=== PATIENT | female | born 1970 | race Caucasian/White ===

== ENCOUNTER 2020-01-08 17:57 | Emergency (ER) | payer SELFPAY ==
[2020-01-08 18:28] VITALS: BP 137/86; PULSE 103; RESP 18; TEMP 36.8; O2SAT 97; BMI 30.9
== END 2020-01-08 19:15 | disposition left against medical advice (07) ==
LOC: ER 18:20
PROVIDERS: Emergency Provider Emergency Medicine
DX: Z53.21 Procedure and treatment not carried out due to patient leaving prior to being seen by health care provider (principal)
CPT/HCPCS: 99281

== ENCOUNTER 2020-11-19 15:48 | Observation (INO) | payer MEDICAID, SELFPAY ==
[2020-11-19 16:46] VITALS: BP 119/83; PULSE 114; RESP 18; TEMP 36.7; O2SAT 99; BMI 27.4
--- NOTE | 2020-11-19 18:20 | XRR_ITS ---
PROCEDURE INFORMATION: Exam: XR Chest Exam date and time: 11/19/2020 6:27 PM Age: 50 years old Clinical indication: Dyspnea; Additional info: SOB TECHNIQUE: Imaging protocol: XR of the chest. Views: 1 view. COMPARISON: CR Chest 1 [place] [id number] 10/01/2014 10:49 AM FINDINGS: Lungs: Decreased lung volumes. Left lung base opacities are nonspecific. Pleural spaces: Possible small effusion. No pneumothorax. Heart/Mediastinum: Left cardiac apex obscured. Cardiac silhouette diameter is unremarkable. Diaphragm: Left diaphragm partially obscured. Bones/joints: Unremarkable. XR/XR chest 1V portable [id number] IMPRESSION: Asymmetric opacification of left lung base obscuring left diaphragm and left cardiac apex. This may possibly represent an underlying pleural effusion. Cannot exclude pneumonia.
--- NOTE | 2020-11-19 18:20 | ECG_ITS ---
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 Measurements Intervals Thida Rate: 111 P: 43 WY: 138 QRS: 43 QRSD: 92 T: 97 QT: 329 QTc: 448 Interpretive Statements SINUS TACHYCARDIA WITH OCCASIONAL VENTRICULAR PREMATURE COMPLEXES POSSIBLE LEFT ATRIAL ENLARGEMENT [-0.1mV P WAVE IN V1/V2] PROBABLE INFERIOR MYOCARDIAL INFARCTION [35 ms Q WAVE IN II/aVF], PROBABLY OLD ANTEROSEPTAL MYOCARDIAL INFARCTION [40+ ms Q WAVE IN V1-V4], OF INDETERMINATE AGE No previous ECG available for comparison Electronically Signed On 11-19-2020 20:28:20 CDT by Luis Gilmore M.D. [email or web address]
[2020-11-19 18:32] LABS: Basophils # 0.1 10^3/uL (0.0-0.1); Basophils % 0.7 %; Eosinophils # 0.1 10^3/uL (0.0-0.8); Eosinophils % 1.7 %; Hematocrit 39.9 % (37.0-47.0); Hemoglobin 13.3 g/dL (11.5-15.3); Lymphocytes # 2.3 10^3/uL (0.8-4.8); Lymphocytes % 31.6 %; Mean Corpuscular HGB Conc 33.3 g/dL (30.0-36.0); Mean Corpuscular Hemoglobin 30.2 pg (28.0-34.0); Mean Corpuscular Volume 90.5 fL (81-99); Mean Platelet Volume 10.8 fL (7.4-10.4); Monocytes # 0.6 10^3/uL (0.2-0.9); Monocytes % 8.4 %; Neutrophils # 4.15 10^3/uL (1.8-7.7); Neutrophils % 57.2 %; Nucleated Red Blood Cells % 0 %; Platelet Count 270 10^3/cmm (130-400); Red Blood Count 4.41 10^6/uL (4.1-5.3); Red Cell Distribution Width 13.8 % (12.1-15.1); White Blood Count 7.3 10^3/uL (4.0-10.0)
--- NOTE | 2020-11-19 18:58 | W.ED.GENADLT ---
HPI - General Adult General: Chief complaint: General Medical Stated complaint: multiple complaints Time Seen by Provider: 11/19/20 18:30 Source: patient and EMS Mode of arrival: EMS Limitations: no limitations History of Present Illness: HPI narrative: 50-year-old female who is here with multiple complaints. She states that her blood sugar she believes has been running high she is also had some extremity swelling and some shortness of breath and chest pain that has been going on for months almost a year. She states she had increased swelling her lower extremities and now is having some shortness of breath when she lays flat. She states that she just got Medicaid and has not seen any providers. She does have a history of diabetes but states that she does not take any medicines because she has not seen any providers in over a year. She states last time she did check her blood sugar she thought it was 500 but has not checked it in quite some time. She denies any acute problems at this time. Denies any worsening improving factors. Associated symptoms: Reports chest pain and dyspnea; Deny headache(s), nausea, rash or vomiting Review of Systems Const: Denies: fever(s), chills, body aches or change in appetite Eyes: Denies: blurry vision or eye discomfort ENMT: Denies: throat pain or dental pain Card: Reports: chest pain Resp: Reports: dyspnea GI: Denies: abdominal pain, nausea, vomiting or diarrhea : Denies: dysuria Musc: Reports: extremity swelling; Denies: neck pain or back pain Skin/Breast: Denies: rash Neuro: Denies: headache(s) Psych: Denies: depression Dawson/Lymph: Denies: easy bruising All/Imm: Denies: urticaria PFSH ED PFSH: Medical History (Updated 11/19/20 @ 19:52 by Vance Adams MD) Depression Diabetes Marijuana abuse OCD (obsessive compulsive disorder) PTSD (post-traumatic stress disorder) Seizure Suicide and self-inflicted injury Surgical History (Updated 11/19/20 @ 19:52 by Vance Adams MD) H/O: hysterectomy Social History (Updated 11/19/20 @ 19:53 by Vance Adams MD) Lives independently: Yes Housing: House Physical Exam Const: COMMON NORMALS: no acute distress, patient oriented x3 and healthy appearing HENMT: COMMON NORMALS: normocephalic and atraumatic HEAD & SCALP: normocephalic and atraumatic Eye: COMMON NORMALS: Equal, round and reactive pupils present and EOMs intact bilaterally PUPIL: Yes Equal, round and reactive pupils present Neck/C-Spine: COMMON NORMALS: full ROM and supple Chest: COMMONS NORMALS: normal inspection of the chest and normal palpation of entire chest wall Resp: COMMON NORMALS: normal respiratory effort, No retractions, No use of accessory muscles and clear to auscultation bilaterally AUSCULTATION: clear to auscultation bilaterally Cardio: COMMON NORMALS: regular rate, regular rhythm and No murmurs present (Cardio) RATE: regular rate RHYTHM: regular rhythm GI: COMMON NORMALS: Normal to inspection, nondistended, normoactive bowel sounds present, Soft to palpation, non-tender and no masses PALPATION: Yes Soft to palpation Extremity: COMMON NORMALS: full ROM NARRATIVE EXTREMITY EXAM: 1+ edema Neuro: COMMON NORMALS: patient oriented x3, moves all extremities and no focal motor deficits Psych: COMMON NORMALS: mental status grossly normal, Normal thought process present and cooperative THOUGHT PROCESS: Normal thought process present Skin: COMMON NORMALS: no rashes or lesions noted and no wounds GENERAL SKIN EXAM: no rashes or lesions noted Course Vital Signs: Vital signs: Vital Signs Temperature 98.1 F 11/19/20 16:46 Pulse Rate 114 H 11/19/20 16:46 Respiratory Rate 18 11/19/20 16:46 Blood Pressure 119/83 11/19/20 16:46 Pulse Oximetry 99 11/19/20 16:46 MDM - General Adult MDM Narrative: Medical decision making narrative: Patient presents here with lower extremity edema elevated BNP and dyspnea with concern of new onset CHF. Patient's also hyperglycemic. She has not taken any meds. Will admit to hospitatlists Lab Data: Labs: Lab Results 11/19/20 11/19/20 Range/Units 15:38 15:38 WBC 7.3 (4.0-10.0) 10^3/ uL RBC 4.41 (4.1-5.3) 10^6/u L Hgb 13.3 (11.5-15.3) g/dL Hct 39.9 (37.0-47.0) % MCV 90.5 (81-99) fL MCH 30.2 (28.0-34.0) pg MCHC 33.3 (30.0-36.0) g/dL RDW 13.8 (12.1-15.1) % Plt Count 270 (130-400) 10^3/c mm MPV 10.8 H (7.4-10.4) fL Neut % (Auto) 57.2 % Lymph % (Auto) 31.6 % [place] % (Auto) 8.4 % Eos % (Auto) 1.7 % Baso % (Auto) 0.7 % Neut # (Auto) 4.15 (1.8-7.7) 10^3/u L Lymph # (Auto) 2.3 (0.8-4.8) 10^3/u L Highlands # (Auto) 0.6 (0.2-0.9) 10^3/u L Eos # (Auto) 0.1 (0.0-0.8) 10^3/u L Baso # (Auto) 0.1 (0.0-0.1) 10^3/u L Nucleated RBC % (a uto) 0 % Nucleated RBCs # 0.0 /100WBC Sodium 131 L (136-145) mmol/L Potassium 4.0 (3.5-5.1) mmol/L Chloride 96 L (98-107) mmol/L Carbon Dioxide 22 (22-29) mmol/L Anion Gap 17.0 (5-19) BUN 12 (6-20) mg/dL Creatinine 0.6 (0.5-0.9) mg/dL GFR Calculation 105.4 (90-130) mL/min Glucose 519 H* (65-115) mg/dL Calculated Osmolal ity 295 (285-295) mOsm/k g Calcium 8.9 (8.5-10.5) mg/dL Total Bilirubin 0.4 (0.15-1.2) mg/dL AST 25 (0-32) U/L ALT 56 H (0-33) U/L Alkaline Phosphata se 126 H (35-105) IU/L NT-Pro-B Natriuret Pep 6104 H (0-125) pg/mL Total Protein 6.5 L (6.6-8.7) g/dL Albumin 3.6 (3.5-5.2) g/dL Globulin 2.9 (1.3-4.6) g/dL Imaging Data^: CXR: Attestation: I personally reviewed and interpreted this imaging study as follows: Radiologist's impression: [facility] [address] XRay Report Signed Patient: Bertha Tejada Unit #: [id number] : 1970 Age/Sex: 50 / F ADM Date: 11/19/20 Loc: ER Room/Bed: Attending Dr: Ordering Provider/Ordering MD: Brant Jaramillo MD Date of Service: 11/19/20 Procedure(s): XR chest 1V portable [id number] Accession Number(s): [id number] Report Number: [id number] PROCEDURE INFORMATION: Exam: XR Chest Exam date and time: 11/19/2020 6:27 PM Age: 50 years old Clinical indication: Dyspnea; Additional info: SOB TECHNIQUE: Imaging protocol: XR of the chest. Views: 1 view. COMPARISON: CR Chest 1 [place] [id number] 10/01/2014 10:49 AM FINDINGS: Lungs: Decreased lung volumes. Left lung base opacities are nonspecific. Pleural spaces: Possible small effusion. No pneumothorax. Heart/Mediastinum: Left cardiac apex obscured. Cardiac silhouette diameter is unremarkable. Diaphragm: Left diaphragm partially obscured. Bones/joints: Unremarkable. XR/XR chest 1V portable [id number] IMPRESSION: Asymmetric opacification of left lung base obscuring left diaphragm and left cardiac apex. This may possibly represent an underlying pleural effusion. Cannot exclude pneumonia. EKG Data^: EKG 1: Attestation: I personally reviewed and interpreted this EKG as follows: EKG interpretation date: 11/19/20 EKG interpretation time: 19:21 Interpretation: sinus tach hr [address] or t wave abnormalities qrs 92 qtc 394 Computer generated interpretation: Chest X-Ray 11/19/20 18:20 IMPRESSION: Asymmetric opacification of left lung base obscuring left diaphragm and left cardiac apex. This may possibly represent an underlying pleural effusion. Cannot exclude pneumonia. Discharge Plan Discharge Prescriptions: No Action Tylenol 325 mg Tablet 325 - 650 mg PO QID PRN (Reason: Pain) RF: 0 ibuprofen 200 mg Tablet 200 - 400 mg PO Q6H PRN (Reason: FEVER/PAIN) RF: 0 Adrian Otc See Rx Instructions .ROUTE .COMPLEX RF: 0 Generic Sudafed See Rx Instructions .ROUTE .COMPLEX RF: 0 Tussin See Rx Instructions .ROUTE .COMPLEX RF: 0 Coding Level of Care Code ED Agronomy Instructor for Ruth Fwd Exam Comprehensive
[2020-11-19 19:07] LABS: Alanine Aminotransferase 56 U/L (0-33); Albumin Level 3.6 g/dL (3.5-5.2); Alkaline Phosphatase 126 IU/L (35-105); Aspartate Amino Transferase 25 U/L (0-32); Blood Urea Nitrogen 12 mg/dL (6-20); Calcium 8.9 mg/dL (8.5-10.5); Carbon Dioxide 22 mmol/L (22-29); Chloride 96 mmol/L (98-107); Creatinine Clr Calc Pharmacy 104.3038; Globulin 2.9 g/dL (1.3-4.6); Glomerular Filtration Rate 105.4 mL/min (90-130); NT Pro B Type Natriuretic Pept 6104 pg/mL (0-125); Osmolality Calculated 295 mOsm/kg (285-295); Sodium 131 mmol/L (136-145); Total Bilirubin 0.4 mg/dL (0.15-1.2); Total Protein 6.5 g/dL (6.6-8.7)
[2020-11-19 19:23] LABS: Glucose 519 mg/dL (65-115)
[2020-11-19] MEDS: insulin regular-human 100 units/1 mL 10 UNIT IVP (19:42)
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
[2020-11-19] MEDS: FUROsemide 10 mg/mL SDV 4mL 40 MG IVP (19:44)
[2020-11-19 21:13] LABS: Glucose Point of Care 232 mg/dL (70-110)
[2020-11-19 21:31] VITALS: BP 116/87; PULSE 86; RESP 18; TEMP 36.6; O2SAT 99
[2020-11-19 22:11] VITALS: BP 127/54; PULSE 103; RESP 23; TEMP 36.6; O2SAT 97
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
[2020-11-19 22:56] LABS: Chol HDL Ratio 3.56 mg/dL (0.0-4.40); Cholesterol 139 mg/dL (0-200); HDL Cholesterol 39 mg/dL (60-100); LDL Cholesterol Calculated 59 mg/dL (50-129); LDL HDL Ratio 1.51 RATIO (0.00-3.22); Thyroid Stimulating Hormone 1.56 uIU/mL (0.27-4.20); Triglycerides 204 mg/dL (0-150)
[2020-11-19 22:57] LABS: Estmated Average Glucose 220; Hemoglobin A1C 9.3 % (4.0-6.0)
[2020-11-20] VITALS: BP 115/81; PULSE 113; RESP 21; TEMP 36.7; O2SAT 95
[2020-11-20] MEDS: enoxaparin 40 mg/0.4 mL Syringe SUBCUT (00:05)
[2020-11-20] MEDS: LORazepam 0.5 mg Tablet 0.25 MG PO (00:05)
[2020-11-20 02:00] VITALS: BP 119/90; PULSE 117; RESP 20; TEMP 36.8; O2SAT 93
[2020-11-20 06:00] VITALS: BP 122/87; PULSE 109; RESP 20; TEMP 36.8; O2SAT 95
--- NOTE | 2020-11-20 06:28 | PC.NURSE ---
SHIFT SUMMARY Slept about an hour and half after taking the po Ativan. Says has been days since she has slept. Has some anxiety. Sits on side of bed and gets up and walks around in her room. Has had good urine output since admission.
[2020-11-20 06:39] LABS: Glucose Point of Care 343 mg/dL (70-110)
[2020-11-20 06:54] LABS: Basophils # 0.1 10^3/uL (0.0-0.1); Basophils % 0.7 %; Eosinophils # 0.2 10^3/uL (0.0-0.8); Eosinophils % 2.5 %; Hematocrit 43.4 % (37.0-47.0); Hemoglobin 13.9 g/dL (11.5-15.3); Lymphocytes # 2.4 10^3/uL (0.8-4.8); Lymphocytes % 31.8 %; Mean Corpuscular Hemoglobin 29.7 pg (28.0-34.0); Mean Corpuscular Volume 92.7 fL (81-99); Mean Platelet Volume 10.4 fL (7.4-10.4); Monocytes # 0.6 10^3/uL (0.2-0.9); Monocytes % 8.4 %; Neutrophils # 4.31 10^3/uL (1.8-7.7); Neutrophils % 56.2 %; Nucleated Red Blood Cells % 0 %; Platelet Count 283 10^3/cmm (130-400); Red Blood Count 4.68 10^6/uL (4.1-5.3); Red Cell Distribution Width 13.8 % (12.1-15.1); White Blood Count 7.7 10^3/uL (4.0-10.0)
[2020-11-20 07:04] LABS: Anion Gap 16.1 (5-19); Blood Urea Nitrogen 13 mg/dL (6-20); Calcium 8.9 mg/dL (8.5-10.5); Carbon Dioxide 23 mmol/L (22-29); Chloride 99 mmol/L (98-107); Glomerular Filtration Rate 168.3 mL/min (90-130); Glucose 348 mg/dL (65-115); Osmolality Calculated 292 mOsm/kg (285-295); Potassium 4.1 mmol/L (3.5-5.1); Sodium 134 mmol/L (136-145)
[2020-11-20] MEDS: FUROsemide 20 mg Tablet PO (09:17)
[2020-11-20] MEDS: bacitracin ointment 28 gm TOPICAL ×2 (09:18→14:03)
--- NOTE | 2020-11-20 10:48 | PC.NUTR ---
Nutrition consult received for new onset DM education. Provided nutrition education for DM and CHF nutrition therapies. Downgraded diet texture to Mechnical soft per pt request. See RD assessment for further details.
[2020-11-20 11:12] LABS: Glucose Point of Care 308 mg/dL (70-110)
[2020-11-20 11:20] VITALS: BP 115/58; PULSE 114; RESP 18; TEMP 36.1; O2SAT 97
[2020-11-20 15:00] VITALS: BP 111/63; PULSE 112; RESP 18; TEMP 36.8; O2SAT 97
--- NOTE | 2020-11-20 15:18 | PC.RESP ---
Smoking Cessation information sent to patient.
[2020-11-20 17:14] LABS: Glucose Point of Care 160 mg/dL (70-110)
[2020-11-20 17:42] VITALS: BP 111/63; PULSE 112; RESP 18; TEMP 36.8; O2SAT 97
--- NOTE | 2020-11-20 22:24 | USCV_ITS ---
Bertha Tejada Age: 50 Gender: F : 1970 Exam Date: 11/20/2020 06:36 Ordering Phys: Vance Adams MD Technologist: CASSANDRA [place] [facility] [place] CHF EXACERBATION BP: 119 / 90 HR: 115 Rhythm: Sinus Technical Quality: Adequate MEASUREMENTS (Male / Female) Normal Values 2D ECHO LV Diastolic Diameter PLAX 5.3 cm 4.2 - 5.9 / 3.9 - 5.3 cm LV Systolic Diameter PLAX 4.8 cm LV Chamber Size 2.7 cm IVS Diastolic Thickness 1.1 cm 0.6 - 1.0 / 0.6 - 0.9 cm IVS Systolic Thickness 1.2 cm LVPW Diastolic Thickness 1.7 cm 0.6 - 1.0 / 0.6 - 0.9 cm LVPW Systolic Thickness 1.5 cm RV Chamber Size 2.8 cm LVOT Diameter 2.0 cm LV Ejection Fraction 2D Teich 21.9 % LV Ejection Fraction MOD 2C 11.0 % LV Ejection Fraction 2C AL 11.3 % LA Diameter 4.3 cm LA Width 3.2 cm LA Height 5.2 cm RA Width 3.4 cm RA Height 4.0 cm Aorta at Sinotubular Diameter 2.4 cm M-MODE LV Diastolic Diameter MM 6.7 cm 4.2 - 5.9 / 3.9 - 5.3 cm LV Systolic Diameter MM 5.9 cm LV Ejection Fraction MM Teich 25.0 % IVS Diastolic Thickness MM 1.0 cm 0.6 - 1.0 / 0.6 - 0.9 cm IVS Systolic Thickness MM 1.0 cm LVPW Diastolic Thickness MM 1.0 cm 0.6 - 1.0 / 0.6 - 0.9 cm LVPW Systolic Thickness MM 1.2 cm Aortic Annulus Diameter 2.6 cm LA Ao Ratio MM 1.8 MV E Point Septal Separation 1.7 cm DOPPLER MV Area PHT 4.8 cm squared Mitral E to A Ratio 3.2 MV E' Velocity 44.0 cm/s Mitral E to MV E' Ratio 9.0 Mitral E to LV E' Lateral Ratio 9.8 Mitral E to LV E' Septal Ratio 8.4 TR Peak Velocity 273.6 cm/s TR Peak Gradient 30.0 mmHg TR Mean Velocity 213.3 cm/s TR Mean Gradient 21.5 mmHg TR Velocity Time Integral 99.5 cm TV Peak E Velocity 78.0 cm/s Right Atrial Pressure 3.0 mmHg Pulmonary Artery Systolic Pressu 33.0 mmHg PV Peak Velocity 78.0 cm/s RV Acceleration Time 0.1 s RV Ejection Time 0.2 s RV AcT/ET 0.2 FINDINGS Left Ventricle Mildly dilated left ventricle. Severe diffuse hypokinesia of the left ventricle with ejection fraction of around 20% Right Ventricle The right ventricle is normal in size and function. Right Atrium Normal right atrial size. Left Atrium Mildly increased left atrial size. Mitral Valve Moderate mitral valve regurgitation. Aortic Valve No gross abnormalities noted Tricuspid Valve Mild tricuspid valve regurgitation. Pulmonic Valve Pulmonic valve not well visualized. Pericardium Trivial pericardial effusion. Aorta Normal ascending aorta dimension. CONCLUSIONS Mildly dilated left ventricle. Severe diffuse hypokinesia of the left ventricle with ejection fraction of around 20%. Mildly increased left atrial size. Moderate mitral valve regurgitation. Mild tricuspid valve regurgitation. Trivial pericardial effusion. Estimated pulmonary artery peak systolic pressure of 33 mmHg. No similar previous study is available for comparison. Dr Tj Dumas MD FAC (Electronically Signed) Final Date: 23 November 2020 09:55 S
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
== END 2020-11-20 17:45 | disposition home or self-care (01) ==
LOC: ER 19:59 → MEDSURG 21:50
PROVIDERS: Admitting Provider Internal Medicine; Emergency Provider Emergency Medicine; Visit Provider Student in an Organized Health Care Education/Training Program
DX: E11.65 Type 2 diabetes mellitus with hyperglycemia (principal); I50.9 Heart failure, unspecified; G47.30 Sleep apnea, unspecified; J44.9 Chronic obstructive pulmonary disease, unspecified; F41.9 Anxiety disorder, unspecified; Z82.49 Family history of ischemic heart disease and other diseases of the circulatory system; Z83.3 Family history of diabetes mellitus; F17.210 Nicotine dependence, cigarettes, uncomplicated; F32.9 Major depressive disorder, single episode, unspecified; F12.10 Cannabis abuse, uncomplicated; Z91.5 Personal history of self-harm
CPT/HCPCS: 36415; 36416; 71045; 80048; 80053; 80061; 82962; 83036; 83880; 84443; 85025; 93005; 93306; 96372; 96374; 96375; 99285; G0378; J1650; J1815; J1940

== ENCOUNTER 2021-01-19 20:06 | Inpatient (IN) | payer MEDICAID, SELFPAY ==
[2021-01-19 21:12] VITALS: BP 87/61; PULSE 112; RESP 18; TEMP 37.2; O2SAT 96; BMI 26.1
[2021-01-19 22:19] LABS: Basophils % 0.4 %; Eosinophils % 0.2 %; Hemoglobin 14.2 g/dL (11.5-15.3); Lymphocytes # 1.3 10^3/uL (0.8-4.8); Lymphocytes % 13.9 %; Mean Corpuscular HGB Conc 31.6 g/dL (30.0-36.0); Mean Corpuscular Hemoglobin 26.4 pg (28.0-34.0); Mean Corpuscular Volume 83.8 fL (81-99); Mean Platelet Volume 9.8 fL (7.4-10.4); Monocytes # 0.4 10^3/uL (0.2-0.9); Monocytes % 3.8 %; Neutrophils # 7.69 10^3/uL (1.8-7.7); Nucleated Red Blood Cells % 0.3 %; Platelet Count 177 10^3/cmm (130-400); Red Blood Count 5.37 10^6/uL (4.1-5.3); Red Cell Distribution Width 19.4 % (12.1-15.1); White Blood Count 9.5 10^3/uL (4.0-10.0)
--- NOTE | 2021-01-19 22:23 | ED_ITS ---
HPI - Extremity Problem General: Chief complaint: Extremity Problem,Nontraumatic Stated complaint: foot issues Time Seen by Provider: 01/19/21 21:49 Source: patient Mode of arrival: wheelchair Limitations: no limitations History of Present Illness: HPI Narrative: Patient is a 50-year-old female who presents to ED today along with her for complaints of bilateral lower ex tremity and foot wounds. History is very difficult to obtain from patient as she seems to be under the influence of drugs. She seems to be very paranoid. Her history often changes in regards to the wounds. She tells me at one point she was bitten by baby pit vipers and then later tells me that the wounds were caused by standing and stagnant rodriguez water. She then states they were caused by leeches. She does have pictures on her phone dated mid December where her feet do not appear infected but have large clear fluid-filled bulla on them. These have since ruptured and she now has multiple ulcerated necrotic appearing lesions to her feet and legs. 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 Patient was diagnosed with new onset CHF in November. She was hospitalized for this. She was also diagnosed with diabetes. Patient refuses to believe she is a diabetic. She has not been taking any of her medication she was discharged home with. Complaint: extremity pain and extremity swelling Associated symptoms: Deny fever(s) Review of Systems Const: Denies: fever(s) or chills GI: Denies: nausea or vomiting : Reports: other (states she only urinates once a day); Denies: flank pain or dysuria Musc: Reports: extremity pain and extremity swelling Skin/Breast: Reports: erythema, skin pain and new lesions Neuro: Denies: numbness in extremities, weakness in extremities or sensory changes [facility] ED PFSH: Medical History Depression Diabetes Marijuana abuse OCD (obsessive compulsive disorder) PTSD (post-traumatic stress disorder) Seizure Suicide and self-inflicted injury Surgical History H/O: hysterectomy Family History Other CAD (coronary artery disease) Diabetes Social History Smoking and tobacco status: former smoker Alcohol intake: never Lives independently: Yes Housing: House Physical Exam Const: EXAM LIMITATIONS: altered mental status (pt appears to be under the influence of drugs) GENERAL APPEARANCE: cooperative NUTRITIONAL APPEARANCE: overweight ORIENTATION/CONSCIOUSNESS: Yes awake, Yes oriented to person and Yes oriented to place HENMT: COMMON NORMALS: normocephalic and atraumatic HEAD & SCALP: normocephalic and atraumatic Resp: COMMON NORMALS: normal respiratory effort Cardio: COMMON NORMALS: regular rhythm RATE: tachycardic RHYTHM: regular rhythm Extremity: NARRATIVE EXTREMITY EXAM: patient has significant pitting edema from thighs all the way down legs; she has severe erythema/warmth to entire feet extending to mid lower leg; she has multiple ulcerated necrotic sores to bilateral dorsal feet Neuro: SENSORIUM/ORIENTATION: Yes oriented to person and Yes oriented to place Skin: NARRATIVE SKIN EXAM: pt has countless picked sores throughout face and body Course Consultations: Consultation #1: Dr. Adams-accepts patient; requests CT scans of bilateral LE w/ contrast to evaluate for necrotizing fasciitis Vital Signs: Vital signs: Vital Signs Temperature 99.0 F 01/19/21 21:12 Pulse Rate 111 H 01/20/21 00:05 Respiratory Rate 22 H 01/20/21 00:05 Blood Pressure 105/78 01/20/21 00:05 Pulse Oximetry 94 01/20/21 00:05 MDM - Extremity (Nontraumatic) MDM Narrative: Medical decision making narrative: Patient meets sepsis criteria given her hypotension, tachycardia, and lactate of 3.2. She surprisingly has a normal white count. Fluids were not started as she is clinically severely fluid overloaded. Her BNP today is almost 12,000. She was started on Vancomycin and Primaxin for her infection. Patient needs to be admitted for IV antibiotics, treatment of her CHF, and better control of her diabetes. She most likely will need psychiatry consult as she is exhibiting some psychotic features. Again I have a suspicion for drug use. UDS is pending. I have spoken to Dr. Adams who will admit patient Lab Data: Labs: Lab Results 01/19/21 01/19/21 01/19/21 Range/Units 22:10 22:10 22:10 WBC 9.5 (4.0-10.0) 10^3/ uL RBC 5.37 H (4.1-5.3) 10^6/u L Hgb 14.2 (11.5-15.3) g/dL Hct 45.0 (37.0-47.0) % MCV 83.8 (81-99) fL MCH 26.4 L (28.0-34.0) pg MCHC 31.6 (30.0-36.0) g/dL RDW 19.4 H (12.1-15.1) % Plt Count 177 (130-400) 10^3/c mm MPV 9.8 (7.4-10.4) fL Neut % (Auto) 81.0 % Lymph % (Auto) 13.9 % [place] % (Auto) 3.8 % Eos % (Auto) 0.2 % Baso % (Auto) 0.4 % Neut # (Auto) 7.69 (1.8-7.7) 10^3/u L Lymph # (Auto) 1.3 (0.8-4.8) 10^3/u L [place] # (Auto) 0.4 (0.2-0.9) 10^3/u L Eos # (Auto) 0.0 (0.0-0.8) 10^3/u L Baso # (Auto) 0.0 (0.0-0.1) 10^3/u L Nucleated RBC % (a uto) 0.3 % Nucleated RBCs # 0.0 /100WBC ESR 19 H (0-15) mm/hr Sodium 134 L (136-145) mmol/L Potassium 3.9 (3.5-5.1) mmol/L Chloride 97 L (98-107) mmol/L Carbon Dioxide 19 L (22-29) mmol/L Anion Gap 21.9 H (5-19) BUN 28 H (6-20) mg/dL Creatinine 0.6 (0.5-0.9) mg/dL GFR Calculation 105.4 (90-130) mL/min Glucose 116 H (65-115) mg/dL Estimat Average Gl ucose Hemoglobin A1c (4.0-6.0) % Calculated Osmolal ity 284 L (285-295) mOsm/k g Lactic Acid (0.5-2.2) mmol/L Calcium 8.0 L (8.5-10.5) mg/dL Total Bilirubin 2.0 H (0.15-1.2) mg/dL AST 29 (0-32) U/L ALT 46 H (0-33) U/L Alkaline Phosphata se 165 H (35-105) IU/L C-Reactive Protein 112.5 H (0.0-4.9) mg/L NT-Pro-B Natriuret Pep 41312 H (0-125) pg/mL Total Protein 6.2 L (6.6-8.7) g/dL Albumin 3.1 L (3.5-5.2) g/dL Globulin 3.1 (1.3-4.6) g/dL 01/19/21 01/19/21 Range/Units 22:10 22:10 WBC (4.0-10.0) 10^3/ uL RBC (4.1-5.3) 10^6/u L Hgb (11.5-15.3) g/dL Hct (37.0-47.0) % MCV (81-99) fL MCH (28.0-34.0) pg MCHC (30.0-36.0) g/dL RDW (12.1-15.1) % Plt Count (130-400) 10^3/c mm MPV (7.4-10.4) fL Neut % (Auto) % Lymph % (Auto) % [place] % (Auto) % Eos % (Auto) % Baso % (Auto) % Neut # (Auto) (1.8-7.7) 10^3/u L Lymph # (Auto) (0.8-4.8) 10^3/u L [place] # (Auto) (0.2-0.9) 10^3/u L Eos # (Auto) (0.0-0.8) 10^3/u L Baso # (Auto) (0.0-0.1) 10^3/u L Nucleated RBC % (a uto) % Nucleated RBCs # /100WBC ESR (0-15) mm/hr Sodium (136-145) mmol/L Potassium (3.5-5.1) mmol/L Chloride (98-107) mmol/L Carbon Dioxide (22-29) mmol/L Anion Gap (5-19) BUN (6-20) mg/dL Creatinine (0.5-0.9) mg/dL GFR Calculation (90-130) mL/min Glucose (65-115) mg/dL Estimat Average Gl ucose 232 Hemoglobin A1c 9.7 H (4.0-6.0) % Calculated Osmolal ity (285-295) mOsm/k g Lactic Acid 3.2 H (0.5-2.2) mmol/L Calcium (8.5-10.5) mg/dL Total Bilirubin (0.15-1.2) mg/dL AST (0-32) U/L ALT (0-33) U/L Alkaline Phosphata se (35-105) IU/L C-Reactive Protein (0.0-4.9) mg/L NT-Pro-B Natriuret Pep (0-125) pg/mL Total Protein (6.6-8.7) g/dL Albumin (3.5-5.2) g/dL Globulin (1.3-4.6) g/dL Discharge Plan Discharge Patient Disposition: Admitted As Inpatient Clinical Impression: Sepsis, CHF (congestive heart failure), Diabetes, Non compliance w medication regimen Condition: Stable Coding Level of Care Code ED 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
[2021-01-19 22:53] LABS: Lactic Sepsis W/Reflex 3.2 mmol/L (0.5-2.2)
[2021-01-19 23:00] LABS: Alanine Aminotransferase 46 U/L (0-33); Albumin Level 3.1 g/dL (3.5-5.2); Alkaline Phosphatase 165 IU/L (35-105); Anion Gap 21.9 (5-19); Aspartate Amino Transferase 29 U/L (0-32); Blood Urea Nitrogen 28 mg/dL (6-20); C Reactive Protein 112.5 mg/L (0.0-4.9); Carbon Dioxide 19 mmol/L (22-29); Chloride 97 mmol/L (98-107); Globulin 3.1 g/dL (1.3-4.6); Glomerular Filtration Rate 105.4 mL/min (90-130); Glucose 116 mg/dL (65-115); Osmolality Calculated 284 mOsm/kg (285-295); Potassium 3.9 mmol/L (3.5-5.1); Sodium 134 mmol/L (136-145); Total Protein 6.2 g/dL (6.6-8.7)
[2021-01-19 23:03] LABS: NT Pro B Type Natriuretic Pept 11630 pg/mL (0-125)
[2021-01-19 23:13] LABS: Erythrocyte Sedimentation Rate 19 mm/hr (0-15)
[2021-01-19] MEDS: ondansetron 2 mg/ML SDV 2 mL 4 MG IVP (23:34)
[2021-01-19] MEDS: vancomycin 1,000 MG in sodium chloride 0.9% 250 ML 250 MG IV (23:34)
[2021-01-19] MEDS: morphine 4 mg/mL SDV 1 mL IVP (23:34)
[2021-01-20] VITALS (8 sets, daily range): BP systolic 87–138; BP diastolic 60–78; PULSE 95–111; RESP 15–22; TEMP 36.7; O2SAT 91–99; BMI 26.1
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
[2021-01-20 00:28] LABS: Reflex Lactate Order REFLEX LACTIC ORDERD
--- NOTE | 2021-01-20 00:34 | PC.NURSE ---
On bedside toilet; still unable to provide urine specimen.
[2021-01-20 00:37] LABS: Estmated Average Glucose 232; Hemoglobin A1C 9.7 % (4.0-6.0)
--- NOTE | 2021-01-20 02:13 | CTR_ITS ---
PROCEDURE INFORMATION: Exam: CT Left Lower Extremity With Contrast Exam date and time: 01/20/2021 2:13 AM Age: 50 years old Clinical indication: Left; Patient HX: Cellulitis and necrotic ulcers all over distal ankle and foot. ; Additional info: Severe infection/necrosis TECHNIQUE: Imaging protocol: CT of the Left lower extremity with intravenous contrast was performed. Radiation optimization: All CT scans at this facility use at least one of these dose optimization techniques: automated exposure control; mA and/or kV adjustment per patient size (includes targeted exams where dose is matched to clinical indication); or iterative reconstruction. Contrast material: OMNI 300; Contrast volume: 75 ml; Contrast route: INTRAVENOUS (IV); COMPARISON: No relevant prior studies available. RADIATION DOSE METRICS: Total DLP (mGy-cm): 250.61 FINDINGS: Bones/joints: No acute fracture. Motion degradation may not allow detection of a subtle bone abnormality. Multifocal areas of slight irregularity of the skin margin. Small calcaneal spur. Minimal calcification Achilles tendon insertion site. Soft tissues: Superficial and subcutaneous prominent skin thickening, edema or cellulitis and subcutaneous fluid collection. No focally marginated soft tissue fluid collection to suggest abscess. Extensive motion degradation limits detailed assessment the deep soft tissue compartment. No definite soft tissue emphysema. Vasculature: There is distal arterial vessel opacification. CT/CT lower leg LT w con [id number] IMPRESSION: 1. No acute fracture. 2. Diffuse cutaneous and prominent subcutaneous soft tissue stranding edema or cellulitis and fluid . 3. No focally marginated fluid collection to suggest abscess. 4. In accordance to the clinical history and in the appropriate clinical setting underlying condition of necrotizing fasciitis could be present and would require clinical confirmation of or clinical exclusion. Radiation Dose CTDIVOL = (mGy): DLP = 250.61 (mGy-cm)
[2021-01-20 02:16] LABS: Lactic Acid level (Lactate) 1.9 mmol/L (0.5-2.2)
--- NOTE | 2021-01-20 02:21 | CTR_ITS ---
PROCEDURE INFORMATION: Exam: CT Right Lower Extremity Without Contrast Exam date and time: 01/20/2021 2:21 AM Age: 50 years old Clinical indication: Ankle and foot; Right; Patient HX: Cellulitis/ulcers to distal ankle/foot. ; Additional info: Infection/necrosis TECHNIQUE: Imaging protocol: CT of the Right lower extremity without contrast was performed. Radiation optimization: All CT scans at this facility use at least one of these dose optimization techniques: automated exposure control; mA and/or kV adjustment per patient size (includes targeted exams where dose is matched to clinical indication); or iterative reconstruction. Contrast material: OMNI 300; Contrast volume: 75 ml; Contrast route: INTRAVENOUS (IV); COMPARISON: No relevant prior studies available. RADIATION DOSE METRICS: Total DLP (mGy-cm): 250.61 FINDINGS: Bones/joints: No acute fracture. Calcaneal spur. Small area of sclerosis of the distal tibia most likely reflecting bone island. Soft tissues: Diffuse and prominent superficial skin thickening or cellulitis. Diffuse and prominent subcutaneous soft tissue fluid and stranding edema or cellulitis. There is likely a component of deeper soft tissue stranding although less prominent as compared to the subcutaneous soft tissues. No definite soft tissue gas. No focally marginated soft tissue collection to suggest abscess. CT/CT lower leg RT w con [id number] IMPRESSION: 1. Diffuse superficial skin and subcutaneous soft tissue stranding edema or cellulitis and fluid collection in the subcutaneous space. 2. No definite marginated abscess. 3. The underlying presence of necrotizing fasciitis could be present and would require clinical correlation for confirmation or exclusion. Radiation Dose CTDIVOL = (mGy): DLP = 250.61 (mGy-cm)
[2021-01-20] MEDS: iohexol 300 mg/mL 100 mL Btl IV ×2 (02:23)
--- NOTE | 2021-01-20 03:26 | USR_ITS ---
PROCEDURE INFORMATION: Exam: US Duplex Lower Extremity Arteries Exam date and time: 01/20/2021 3:26 AM Age: 50 years old Clinical indication: Pain; Edema, localized and other: Many draining open ulcers. Very wet ulcers; Lower extremity, bilateral; Leg, lower and foot; Patient HX: PT has many open sores on body but the ankles and feet are open holes with copulus amounts of fluid draining from them. ; Additional info: B/l ulcer TECHNIQUE: Imaging protocol: Real-time ultrasound scan of the arteries of the bilateral lower extremities with 2-D lopez scale, color Doppler flow and spectral waveform analysis. Images documented and saved. COMPARISON: CT lower leg LT w con [id number] 01/20/2021 2:13 AM FINDINGS: Right common femoral artery: No occlusion or significant stenosis. Biphasic waveform. PSV 69.2 cm/s. Right superficial femoral artery: No occlusion or significant stenosis. Biphasic waveform. PSV 81.2, 76.0 and 70.9 cm/s for the proximal, mid and distal SFA, respectively. Right popliteal artery: No occlusion or significant stenosis. Biphasic waveform. PSV 54.7 cm/s. Right calf/foot arteries: No occlusion or significant stenosis in the visualized arteries. Monophasic waveforms in the posterior tibial artery. Dorsalis pedis artery is patent with monophasic waveform. Left common femoral artery: No occlusion or significant stenosis. Biphasic waveform. PSV 70.1 cm/s. Left superficial femoral artery: No occlusion or significant stenosis. Biphasic waveform. PSV 84.6, 64.9 and 84.6 cm/s for the proximal, mid and distal SFA, respectively. Left popliteal artery: No occlusion or significant stenosis. Biphasic waveform. PSV 72.6 cm/s. Left calf/foot arteries: No occlusion or significant stenosis in the visualized arteries. Monophasic waveforms in the posterior tibial artery. Dorsalis pedis artery is patent with monophasic waveform. Other findings: CAYLA: 0.8; CAYLA: 0.7 US/[place] [id number] IMPRESSION: No stenosis or occlusion.
--- NOTE | 2021-01-20 03:26 | USCV_ITS ---
Bertha Tejada Age: 50 Gender: F : 1970 Exam Date: 01/20/2021 05:34 Ordering Phys: Vance Adams MD Technologist: Shelbi Bravo [place] [facility] [place]: LARGE DEEP NON HEALING WOUNDS BILATERAL FEET AND ANKLES. HISTORY: Large Deep non healing wounds on both feet and ankles. Pt states there about 6 weeks. PROCEDURES: The venous duplex Doppler examination of both lower extremities was performed in the standard fashion. The following venous structures were evaluated: common femoral vein, profunda vein, proximal portion of the greater saphenous vein, superficial femoral vein, and the popliteal vein. In addition, the posterior tibial and peroneal trunk were evaluated. Serial compression, augmentation maneuvers, and spectral Doppler flow evaluation were performed. FINDINGS: Normal 2-D Doppler and augmentation and compressibility throughout the lower extremity venous structures. Additional imaging through the proximal calf veins also reveals no thrombus. Limited evaluation of the greater saphenous vein is patent with no thrombus. Bilateral lower extremity edema. CONCLUSIONS No DVT bilateral lower extremities. Dr. Merary Mon DO (Electronically Signed) Final Date: 20 January 2021 08:10 S
--- NOTE | 2021-01-20 03:58 | PC.PHAR ---
Vancomycin is dosed at 1250mg IVPB every 12 hours to produce a predicted trough level of 15.23 (population based pharmacokinetic analysis). A trough level has been ordered from the lab to be obtained before the fourth dose to confirm and adjust if needed.
[2021-01-20] MEDS: aztreonam 2,000 MG in sodium chloride 0.9% (plus) 100 ML 200 MG IV (04:35)
[2021-01-20 04:44] LABS: Basophils % 0.4 %; Eosinophils % 0.2 %; Hematocrit 45.2 % (37.0-47.0); Lymphocytes # 1.7 10^3/uL (0.8-4.8); Lymphocytes % 18.7 %; Mean Corpuscular Hemoglobin 26.6 pg (28.0-34.0); Mean Corpuscular Volume 85.9 fL (81-99); Mean Platelet Volume 9.5 fL (7.4-10.4); Monocytes # 0.3 10^3/uL (0.2-0.9); Monocytes % 3.8 %; Neutrophils # 6.85 10^3/uL (1.8-7.7); Neutrophils % 76.1 %; Nucleated Red Blood Cells % 0.3 %; Platelet Count 154 10^3/cmm (130-400); Red Blood Count 5.26 10^6/uL (4.1-5.3); Red Cell Distribution Width 19.7 % (12.1-15.1)
--- NOTE | 2021-01-20 04:54 | PC.NURSE ---
Still unable to provide urine specimen. Has sat on the bedside toilet several times without success. Upon entry to room to initiate IV antibiotics, PIV was found to be lying on the bed beside the pt; catheter intact. Small area of dried blood noted to IV site. Pt states she thought we were finished with the IV. Another IV initiated.
[2021-01-20] MEDS: sodium chloride 0.9% 1,000 ML 999 ML IV ×2 (05:09)
[2021-01-20 05:11] LABS: Blood Urea Nitrogen 29 mg/dL (6-20); Carbon Dioxide 21 mmol/L (22-29); Chloride 99 mmol/L (98-107); D Dimer 8.87 ug/mIFEU (0-0.59); Glomerular Filtration Rate 88.2 mL/min (90-130); Glucose 106 mg/dL (65-115); Osmolality Calculated 280 mOsm/kg (285-295); Sodium 132 mmol/L (136-145)
[2021-01-20 07:00] LABS: Glucose Point of Care 89 mg/dL (70-110)
[2021-01-20 07:06] LABS: Amphetamines Screen Urine Positive (Negative); Barbiturates Screen Urine Negative (Negative); Benzodiazepines Screen Urine Negative (Negative); Cocaine Screen Urine Negative (Negative); Opiate Screen Urine Positive (Negative); PCP Screen Urine Negative (Negative); THC Screen Urine Negative (Negative)
[2021-01-20 07:27] LABS: Blood Urine Neg (Negative); Glucose Urine UA Norm (Normal); Ketones Urine 1+ (Negative); Nitrate Urine Negative (Negative); Protein Urine 1+ (Negative); Specific Gravity, Urine 1.015 (1.005-1.030); Urine Appearance Clear (CLEAR); Urine Color Dark Yellow (Yellow); pH Urine 5 (5-7)
[2021-01-20 07:28] LABS: Add Urine Culture? No; Add Urine Microscopic? YES; Bacteria Urine 1+ /hpf; Bilirubin Urine 1+ (Negative); Hyaline Casts Urine 0-4 /lpf; Leukocyte Esterase Urine Negative (Negative); Squamous Epithelial Cell Urine 15-25 /hpf (0-5); Urobilinogen Urine 8 mg/dL (Negative); WBC Urine 0-4 /hpf (0-5)
[2021-01-20 09:24] LABS: Glucose Point of Care 85 mg/dL (70-110)
[2021-01-20] MEDS: bumetanide 1 mg Tablet PO (09:44)
[2021-01-20] MEDS: sennosides-docusate Tablet 1 TAB PO (09:44)
[2021-01-20] MEDS: metroNIDAZOLE 500 MG Tablet PO ×3 (09:44→21:15)
[2021-01-20] MEDS: pantoprazole 40 mg SDV IVP ×2 (09:45→17:47)
[2021-01-20 10:19] LABS: Glucose Point of Care 86 mg/dL (70-110)
--- NOTE | 2021-01-20 10:40 | PC.PHAR ---
PT IS A POOR HISTORIAN-PT STATES SHE DOESNT CARE ABOUT HER SUGAR AND STATES SHE DOESNT TAKE HER INSULIN-NOTES ARE MADE IN THE PHARMACY COMMENTS-MEDICATIONS ENTERED ARE WHAT SHOWS UP FILLED ON EXT MED HISTORY-[facility] STATES THE RXS DIDNT HAVE REFILLS ON THEM
[2021-01-20] MEDS: vancomycin 1,250 MG/250 ML PIGGYBACK 250 MG IV ×2 (11:53→23:49)
[2021-01-20 12:12] LABS: Glucose Point of Care 80 mg/dL (70-110)
--- NOTE | 2021-01-20 12:20 | PM.PN ---
Subjective Subjective: Interval history: Overnight H&P reviewed.Vitals and labs have been reviewed. Medications: Reviewed: Yes Vitals/I&O/Wt Last Vital Signs Temp 98.1 F 01/20/21 04:45 Pulse 108 H 01/20/21 08:14 Resp 20 H 01/20/21 08:14 BP 101/71 01/20/21 08:14 Pulse Ox 91 01/20/21 08:14 01/19/21 01/20/21 01/20/21 22:59 06:59 14:59 Intake Total 350 / 350 Balance 350 / 350 Weight last 48 hrs Weight 68.946 kg Physical Exam Const: COMMON NORMALS: patient oriented x3 HENMT: COMMON NORMALS: normocephalic, atraumatic, hearing grossly normal bilaterally and external ears normal HEAD & SCALP: normocephalic and atraumatic EXTERNAL EAR: Yes external ears normal Eye: COMMON NORMALS: no scleral icterus GENERAL EYE: appearance normal, both eyes and all related structures Chest: COMMONS NORMALS: normal inspection of the chest and normal palpation of entire chest wall CHEST: Yes Symmetrical chest wall rise Resp: COMMON NORMALS: normal respiratory effort, No retractions, No use of accessory muscles and clear to auscultation bilaterally EFFORT & INSPECTION: Yes symmetric chest movement AUSCULTATION: clear to auscultation bilaterally Cardio: COMMON NORMALS: regular rate, regular rhythm, S1 normal heart sound present, S2 normal heart sound present, No gallops present (Cardio), No murmurs present (Cardio), No rub (Cardio) and Peripheral pulses 2+ throughout RATE: regular rate RHYTHM: regular rhythm HEART SOUNDS: S1 normal heart sound present and S2 normal heart sound present PERIPHERAL PULSES: Peripheral pulses 2+ throughout GI: COMMON NORMALS: Normal to inspection, nondistended, normoactive bowel sounds present, Soft to palpation, non-tender, No hepatosplenomegaly present and no masses AUSCULTATION: Yes normoactive bowel sounds PALPATION: Yes Soft to palpation and Yes No hepatosplenomegaly present RECTAL EXAM: deferred Extremity: OTHER: B/L Feet wrapped in clean dressing. Neuro: COMMON NORMALS: patient oriented x3 Data : 01/20/21 04:35 01/20/21 04:35 Micro: Microbiology 01/19/21 22:10 Blood Culture - Preliminary Blood SPECIMEN COLLECTED 01/19/21 22:08 Blood Culture - Preliminary Blood SPECIMEN COLLECTED A&P Assessment and plan (1) Sepsis: Status: Acute (2) Diabetic wet gangrene of the foot: Status: Acute (3) Non compliance w medication regimen: Status: Acute (4) Psychosis: Status: Acute (5) Delirium: Status: Acute (6) Tactile hallucinations: Status: Acute (7) Diabetes: Status: Acute (8) CHF exacerbation: Status: Acute Additional A&P Information Sepsis Secondary to diabetic foot ulcer with wet gangrene Started on broad-spectrum antibiotics Requested wound culture, blood culture, Rule out DVT requested arterial duplex studies as well Will need podiatry for wound debridement CT foot with contrast requested to rule out necrotizing fasciitis ESR 19 CRP 112 Acute psychosis Patient does exhibit signs of acute delirium with psychosis I do believe she suffers from tactile hallucinations and picks on her skin repeatedly Will benefit from psych evaluation in am Check drug screen Type 2 diabetes Noncompliant, hemoglobin A1c 9, patient has not been taking her insulin At risk of worsening of her wound considering her noncompliant behavior Acute CHF exacerbation Reduce ejection fraction 20% patient denies prior history of AK or stent placement, she will need coronary angiogram once sepsis is resolved to rule out ischemic cardiomyopathy Full code We'll keep her n.p.o. 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
[2021-01-20] MEDS: HYDROmorphone 1 mg/mL INJ 1 mL 0.4 MG IVP (14:23)
[2021-01-20 16:58] LABS: Glucose Point of Care 72 mg/dL (70-110)
--- NOTE | 2021-01-20 17:04 | PC.NURSE ---
Shift Note Frequent safety and comfort rounds continue. Orders and/or nursing care completed as indicated. Wound care performed to lower extremities, see orders. Pt tolerated well. Patient monitored for response to intervention and treatment(s). Education provided includes wound care, and substance use. Patient verbalized understanding. Will continue to monitor.
[2021-01-20 20:58] LABS: Glucose Point of Care 82 mg/dL (70-110)
[2021-01-21] VITALS (10 sets, daily range): BP systolic 95–112; BP diastolic 65–78; PULSE 93–113; RESP 16–18; TEMP 36.3–36.8; O2SAT 92–100
[2021-01-21] MEDS: HYDROmorphone 1 mg/mL INJ 1 mL 0.4 MG IVP ×2 (01:01→06:55)
[2021-01-21] MEDS: ipratropium-albuterol 3 mL Neb INHALATION (03:55)
--- NOTE | 2021-01-21 05:47 | PC.NURSE ---
Shift Note Frequent safety and comfort rounds continue. Orders and/or nursing care completed as indicated. Patient monitored for response to intervention and treatment(s). Education provided includes[frequency and care of patients dressings on bilateral lower extremities]. Patient and/or new accounts representative[verbalized understanding, but reinforcement was needed]. Patient has had dilaudid two times this shift for pain control.
--- NOTE | 2021-01-21 07:04 | PC.NURSE ---
Changed patients bilateral lower extremity dressings per doctors dressing change orders. Aseptic technique was used and patient tolerated well.
[2021-01-21 07:07] LABS: Glucose Point of Care 91 mg/dL (70-110)
[2021-01-21] MEDS: pantoprazole 40 mg SDV IVP ×2 (08:52→20:37)
[2021-01-21] MEDS: bumetanide 1 mg Tablet PO (09:58)
[2021-01-21] MEDS: sennosides-docusate Tablet 1 TAB PO (09:58)
--- NOTE | 2021-01-21 10:16 | PC.CHAP ---
Pastoral Care Encounter/Spiritual Assessment Type of Contact [] Declined grades 9 thru 12 visiting teacher visit [] Patient/Family/Request visit [] Outpatient visit [] Follow-up visit [] Physician referral [] Code/Alert [x] Routine visit [] Staff referral [] Actively dying [] Patient sleeping [] Family support [] [] Out of room [] Palliative care [] [x] Receiving care in room [] Pre-surgical visit [] Trauma [x] Long length of stay [] ICU visit [] Other: Relational/Emotional Strength [x] Patient feels connected with others/family/visitors/staff [] Distress [] Loneliness/isolation [] Abandonment Spirituality of Patient [x] Person of Nke[place] [] Attends Jewish of their [place] [x] Believes in Prayer [] Reads Bible or Protestant materials [] There are Spiritual issues to be addressed Clerical Adviser Interventions [x] Prayer [x] Active listening [x] Non-anxious presence [x] Spiritual/emotional support [] Crisis/trauma care [x] Spiritual counseling [] Bereavement support [] Provided bereavement packet [] Provided Bible/devotional materials [] Provided toy/stuffed animal, coloring book to patient or family member [] Provided Communion [] Anointing/[facility] [] Salvation [x] Completed spiritual assessment [] Other: Impact on Illness or Injury [] Angry [] Fearful [x] Anxious [] Often cries [] Exhaustion [x] Unable to work [] Unable to attend temple [] Unable to walk/stand [] Unable to read [] Unable to drive [] Unable to eat/drink [] Unable to sleep [] Unable to be with family [] Patient intubated [] Other: Summary Sweeling in both legs,Had some tests doesn't know how long or health condisdion fci has a good attitude or when she can go home Time spent with patient 10 mins
[2021-01-21 10:39] LABS: Basophils # 0.1 10^3/uL (0.0-0.1); Basophils % 0.5 %; Eosinophils % 0.4 %; Hematocrit 48.3 % (37.0-47.0); Hemoglobin 14.8 g/dL (11.5-15.3); Lymphocytes # 1.2 10^3/uL (0.8-4.8); Lymphocytes % 11.7 %; Mean Corpuscular HGB Conc 30.6 g/dL (30.0-36.0); Mean Corpuscular Hemoglobin 26.5 pg (28.0-34.0); Mean Corpuscular Volume 86.6 fL (81-99); Mean Platelet Volume 9.6 fL (7.4-10.4); Monocytes # 0.3 10^3/uL (0.2-0.9); Monocytes % 2.5 %; Neutrophils # 8.68 10^3/uL (1.8-7.7); Neutrophils % 84.1 %; Nucleated Red Blood Cells # 0.1 /100WBC; Nucleated Red Blood Cells % 0.5 %; Platelet Count 159 10^3/cmm (130-400); Red Blood Count 5.58 10^6/uL (4.1-5.3); Red Cell Distribution Width 19.9 % (12.1-15.1); White Blood Count 10.3 10^3/uL (4.0-10.0)
[2021-01-21 11:23] LABS: Anion Gap 18.7 (5-19); Blood Urea Nitrogen 29 mg/dL (6-20); Calcium 8.3 mg/dL (8.5-10.5); Carbon Dioxide 21 mmol/L (22-29); Chloride 98 mmol/L (98-107); Glomerular Filtration Rate 75.6 mL/min (90-130); Glucose 88 mg/dL (65-115); Osmolality Calculated 283 mOsm/kg (285-295); Potassium 3.7 mmol/L (3.5-5.1); Sodium 134 mmol/L (136-145)
[2021-01-21 12:05] LABS: Glucose Point of Care 93 mg/dL (70-110)
--- NOTE | 2021-01-21 12:21 | PM.PN ---
Subjective Subjective: Interval history: No acute event overnight currently resting comfortably in bed. Has remained Afebrile. Medications: Reviewed: Yes Vitals/I&O/Wt Last Vital Signs Temp 97.6 F 01/21/21 11:07 Pulse 107 H 01/21/21 11:07 Resp 17 01/21/21 11:07 BP 99/75 01/21/21 07:23 Pulse Ox 99 01/21/21 11:07 01/20/21 01/21/21 01/21/21 22:59 06:59 14:59 Intake Total 100 / 450 700 / 1150 120 / 120 Balance 100 / 450 700 / 1150 120 / 120 Weight last 48 hrs Weight 68.946 kg Weight 68.946 kg Physical Exam Const: COMMON NORMALS: patient oriented x3 HENMT: COMMON NORMALS: normocephalic, atraumatic, hearing grossly normal bilaterally and external ears normal HEAD & SCALP: normocephalic and atraumatic EXTERNAL EAR: Yes external ears normal Eye: COMMON NORMALS: no scleral icterus GENERAL EYE: appearance normal, both eyes and all related structures Chest: COMMONS NORMALS: normal inspection of the chest and normal palpation of entire chest wall CHEST: Yes Symmetrical chest wall rise Resp: COMMON NORMALS: normal respiratory effort, No retractions, No use of accessory muscles and clear to auscultation bilaterally EFFORT & INSPECTION: Yes symmetric chest movement AUSCULTATION: clear to auscultation bilaterally Cardio: COMMON NORMALS: regular rate, regular rhythm, S1 normal heart sound present, S2 normal heart sound present, No gallops present (Cardio), No murmurs present (Cardio), No rub (Cardio) and Peripheral pulses 2+ throughout RATE: regular rate RHYTHM: regular rhythm HEART SOUNDS: S1 normal heart sound present and S2 normal heart sound present PERIPHERAL PULSES: Peripheral pulses 2+ throughout GI: COMMON NORMALS: Normal to inspection, nondistended, normoactive bowel sounds present, Soft to palpation, non-tender, No hepatosplenomegaly present and no masses AUSCULTATION: Yes normoactive bowel sounds PALPATION: Yes Soft to palpation and Yes No hepatosplenomegaly present RECTAL EXAM: deferred Extremity: OTHER: B/L Feet extensive ulcer and gangrene. Neuro: COMMON NORMALS: patient oriented x3 Data : 01/21/21 10:24 01/21/21 10:24 Micro: Microbiology 01/19/21 22:08 Blood Culture - Preliminary Blood NEGATIVE TO DATE 01/19/21 22:10 Blood Culture - Preliminary Blood NEGATIVE TO DATE A&P Assessment and plan (1) Sepsis: Status: Acute (2) Diabetic wet gangrene of the foot: Status: Acute (3) Non compliance w medication regimen: Status: Acute (4) Psychosis: Status: Acute (5) Delirium: Status: Acute (6) Tactile hallucinations: Status: Acute (7) Diabetes: Status: Acute (8) CHF exacerbation: Status: Acute Additional A&P Information Sepsis : Secondary to diabetic foot ulcer with wet gangrene wound culture: GNRs Most likely will show polymicrobial growth:It will be helpful and Abxs resistance evaluation. Blood culture:NTD CT lower leg RT w con:Diffuse superficial skin and subcutaneous soft tissue stranding edema or cellulitis and fluid collection in the subcutaneous space.No definite marginated abscess.The underlying presence of necrotizing fasciitis could be present. CT lower leg LT w con:Diffuse cutaneous and prominent subcutaneous soft tissue stranding edema or cellulitis and fluid.No focally marginated fluid collection to suggest abscess. ESR 19 CRP 112 CV venous duplex LE BI:No DVT bilateral lower extremities Vanco and imipenem. NPO after midnight for debridement of bilateral lower extremities under MAC tomorrow. Type 2 diabetes: Noncompliant, hemoglobin A1c 9, patient has not been taking her insulin At risk of worsening of her wound considering her noncompliant behavior Acute on chronic exacerbation OF heart failure with reduced ejection fraction: Bumex 1 mg p.o. daily Cardiology consult to rule out underlying coronary artery disease. Acute psychosis Patient does exhibit signs of acute delirium with psychosis I do believe she suffers from tactile hallucinations and picks on her skin repeatedly Will benefit from psych evaluation in am Check drug screen DVT prophylaxis SCDs Full code Attestations Medical Necessity Statement*: Patient needs to be in hospital for the management of sepsis and extensive b/l l/e diabetic foot ulcer. 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
[2021-01-21] MEDS: vancomycin 1,250 MG/250 ML PIGGYBACK 250 MG IV (12:30)
--- NOTE | 2021-01-21 13:58 | PM.CONSULT ---
Providers/Reason For Consult Consulting Physician/Specialty*: General Surgery Dr. Mcdonnell Reason for Consult*: Bilateral lower extremity wounds Attending Physician: Amrik Osorio MD Primary Care Provider: Arnie Napoles MD History of Present Illness History of Present Illness Bertha Tejada is a 50 year old female diabetic who presents with 6-week history of pain, worsening redness on bilateral lower extremities. Patient states that she started initially with blisters. She denies any history of trauma. No prior lower extremity surgeries. She was admitted to the hospital for IV antibiotics.CT lower extremity did not show any evidence of abscesses or subcutaneous air. Review of Systems General: Reports: 10 or more systems reviewed and unremarkable except in HPI and below Meds/Allergies Home Medications and Allergies Home Medications Medication Instructions Recorded Confirmed Last Taken Type albuterol sulfate 1 inh INHALATION Q6H PRN #1 ea 11/20/20 01/20/21 Unknown Rx insulin glargine [Lantus Solostar 10 unit SUBCUT QPM #15 ml 11/20/20 01/20/21 Unknown Rx U-100 Insulin] fluticasone 500 mcg-salmeterol 50 1 inh INHALATION BID 12/22/20 01/20/21 Unknown History mcg/dose blistr powdr for inhalation furosemide 20 mg tablet 20 mg PO QAM #20 tab 12/22/20 01/20/21 Unknown Rx tiotropium bromide 18 mcg capsule 1 cap INHALATION DAILY 12/22/20 01/20/21 Unknown History with inhalation device trazodone 50 mg tablet 25 mg PO DAILY PRN #10 tab 12/22/20 01/20/21 Unknown Rx acetaminophen [Tylenol Extra 1,000 mg PO PRN 01/20/21 01/20/21 Unknown History Strength] ibuprofen 600 mg PO PRN 01/20/21 01/20/21 Unknown History metformin 500 mg PO BID 01/20/21 01/20/21 Unknown History Allergies Allergy/AdvReac Type Severity Reaction Status Date / Time bupropion [From Wellbutrin] Allergy Unknown Verified 01/19/21 21:18 Penicillins Allergy ALGY-Hives Verified 01/19/21 21:18 Sulfa (Sulfonamide Allergy ALGY-Hives Verified 01/19/21 21:18 Antibiotics) zolpidem [From Ambien] Allergy Unknown Verified 01/19/21 21:18 Current Medications Current Medications Generic Name Dose Route Start Last Admin Trade Name Freq PRN Reason Stop Dose Admin Albuterol/Ipratropium 3 ml 01/20/21 03:26 01/21/21 03:55 Ipratropium-Albuterol 3 Ml Neb INHALATION 3 ml Q6H PRN Administration SHORTNESS OF BREATH Bumetanide 1 mg 01/20/21 09:00 01/21/21 09:58 Bumetanide 1 Mg Tablet PO 1 mg DAILY MATTHEW Administration Hydromorphone HCl 0.4 mg 01/20/21 03:26 01/21/21 06:55 Hydromorphone 1 Mg/Ml Inj 1 Ml IVP 0.4 mg Q4H PRN Administration pain Vancomycin/PEG/NADA/Lysine/Water 1,250 mg in 250 mls @ 250 mls/hr 01/20/21 11:00 01/21/21 12:30 Vancocin IV 250 mls/hr Q12H MATTHEW Administration Imipenem/Cilastatin Sodium 250 100 mls @ 200 mls/hr 01/20/21 12:30 01/21/21 09:59 mg/ Sodium Chloride IV 200 mls/hr Q6H MATTHEW Administration Protocol Insulin Aspart 0 unit 01/20/21 08:00 01/21/21 12:14 Insulin Aspart 100 Unit/1 Ml SUBCUT Not Given WM&BEDTIME MATTHEW Protocol Insulin Aspart 0 unit 01/20/21 21:00 01/21/21 12:15 Insulin Aspart 100 Unit/1 Ml SUBCUT Not Given WM&BEDTIME MATTHEW Protocol Insulin Glargine 10 unit 01/20/21 18:00 01/20/21 17:44 Insulin Glargine 100 Units/1 Ml SUBCUT Not Given QPM MATTHEW Pantoprazole Sodium 40 mg 01/20/21 09:00 01/21/21 08:52 Pantoprazole 40 Mg Sdv IVP 40 mg BID MATTHEW Administration Senna/Docusate Sodium 1 tab 01/20/21 09:00 01/21/21 09:58 Sennosides-Docusate Tablet PO 1 tab DAILY MATTHEW Administration PFSH Acute PFSH: Medical History Depression Diabetes Marijuana abuse OCD (obsessive compulsive disorder) PTSD (post-traumatic stress disorder) Seizure Suicide and self-inflicted injury Surgical History H/O: hysterectomy Family History Other CAD (coronary artery disease) Diabetes Social History Smoking and tobacco status: former smoker Alcohol intake: never Lives independently: Yes Housing: House Vitals/I&O/Wt Last Vital Signs Temp 97.6 F 01/21/21 11:07 Pulse 107 H 01/21/21 11:07 Resp 17 01/21/21 11:07 BP 102/74 01/21/21 12:00 Pulse Ox 99 01/21/21 11:07 01/20/21 01/21/21 01/21/21 22:59 06:59 14:59 Intake Total 100 / 1150 700 / 1150 120 / 120 Balance 100 / 1150 700 / 1150 120 / 120 Weight last 48 hrs Weight 152 lb Weight 152 lb Physical Exam Narrative: EXAM NARRATIVE: HEENT: Normocephalic Eye: Sclera /conjunctiva normal Abdomen: Soft to palpation Neurological: Oriented to place person and time Skin: Intact, cellulitis bilateral lower extremities below the knee with multiple ulcerations, skin maceration and areas of bed gangrene involving lower leg and foot bilaterally Data Micro: Micro: Microbiology 01/20/21 06:00 Wound Culture - Pr eliminary Foot Right Gram Negative R ods Gram Negative R ods#2 01/19/21 22:08 Blood Culture - Pr eliminary Blood NEGATIVE TO PRASAD E 01/19/21 22:10 Blood Culture - Pr eliminary Blood NEGATIVE TO PRASAD E A&P Assessment and plan (1) Diabetic wet gangrene of the foot: 50-year-old female admitted with bilateral lower extremity cellulitis and wet gangrene which requires debridement. Patient is currently not septic and therefore we will plan for debridement of bilateral lower extremities under MAC tomorrow N.p.o. 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
[2021-01-21] MEDS: bacitracin ointment Pkt 1 EACH TOPICAL ×2 (16:07→20:51)
[2021-01-21 16:46] LABS: Glucose Point of Care 114 mg/dL (70-110)
--- NOTE | 2021-01-21 19:48 | PC.NURSE ---
dressing applied to both bilateral legs per Dr. Sathya son,cleansed with saline, apply ABD, and wrapped in kerlex. pt tolerated well and had some drainage on the erica she placed under her feet while sitting on edge of the bed.
--- NOTE | 2021-01-21 19:50 | PC.NURSE ---
shift summary pt became slightly agitated at the beginning of shift, but calmed down quickly when this nurse was able to give her new medications and got her a different breakfast that she could eat. pt kept shutting off iv when it would say the infusion complete or if she had her arm bent and was it was saying down stream occlusion , pt was informed that only the nurses were able to shut off the pump and that she needed her iv antibiotics. pt verbalized understanding and stated she would not do it again but continued to do so with each iv medication. pt dressing was changed and she tolerated it well, she did not complain to this nurse about pain or needing anything for pain or discomfort this shift. pt also gave her self a sponge bath at the end of the shift. pt is hard to understand at times as she mumbles and changes subjects often and does not make sense at times.
--- NOTE | 2021-01-21 20:02 | PC.NURSE ---
pt arrived and she requested that he leave and no information to be given and that he is not to be allowed any information this stay and she would like to go to a assisted after hospital stay.. PHI form filled out and charge nurse informed of this along with pneumatic jack operator nurse.
[2021-01-21 20:54] LABS: Glucose Point of Care 145 mg/dL (70-110)
[2021-01-21 22:47] LABS: Vancomycin Trough 32.3 ug/mL (10-15)
--- NOTE | 2021-01-21 23:00 | PC.NURSE ---
Vanc Troph level reposted at 32.3 pharmacy notifed. Danita held.
--- NOTE | 2021-01-21 23:07 | PC.PHAR ---
Vancomycin trough before fourth dose of 1250mg IVPB every 12 hours is 32.3. Discontinue vancomycin for 24 hours then resume at 1250mg IVPB every 24 hours with another trough to be obtained before the fourth dose at this rate.
[2021-01-22] VITALS (13 sets, daily range): BP systolic 95–109; BP diastolic 61–93; PULSE 92–110; RESP 14–20; TEMP 36–36.6; O2SAT 93–100
[2021-01-22 05:39] LABS: Basophils # 0.1 10^3/uL (0.0-0.1); Basophils % 0.5 %; Eosinophils # 0.1 10^3/uL (0.0-0.8); Eosinophils % 0.8 %; Hematocrit 44.7 % (37.0-47.0); Hemoglobin 13.7 g/dL (11.5-15.3); Lymphocytes # 1.4 10^3/uL (0.8-4.8); Lymphocytes % 14.8 %; Mean Corpuscular HGB Conc 30.6 g/dL (30.0-36.0); Mean Corpuscular Hemoglobin 26.5 pg (28.0-34.0); Mean Corpuscular Volume 86.5 fL (81-99); Mean Platelet Volume 10.1 fL (7.4-10.4); Monocytes # 0.3 10^3/uL (0.2-0.9); Monocytes % 3.4 %; Neutrophils # 7.28 10^3/uL (1.8-7.7); Neutrophils % 79.8 %; Nucleated Red Blood Cells % 0.4 %; Platelet Count 147 10^3/cmm (130-400); Red Blood Count 5.17 10^6/uL (4.1-5.3); White Blood Count 9.1 10^3/uL (4.0-10.0)
[2021-01-22 05:59] LABS: Anion Gap 19.5 (5-19); Blood Urea Nitrogen 28 mg/dL (6-20); Calcium 7.9 mg/dL (8.5-10.5); Carbon Dioxide 17 mmol/L (22-29); Chloride 100 mmol/L (98-107); Glucose 134 mg/dL (65-115); Osmolality Calculated 283 mOsm/kg (285-295); Potassium 3.5 mmol/L (3.5-5.1); Sodium 133 mmol/L (136-145)
[2021-01-22 06:18] LABS: Glucose Point of Care 141 mg/dL (70-110)
[2021-01-22] MEDS: HYDROmorphone 1 mg/mL INJ 1 mL 0.4 MG IVP ×2 (08:21→13:48)
[2021-01-22] MEDS: pantoprazole 40 mg SDV IVP (08:53)
[2021-01-22] MEDS: bumetanide 1 mg Tablet PO (10:12)
[2021-01-22] MEDS: sennosides-docusate Tablet 1 TAB PO (10:12)
[2021-01-22] MEDS: bacitracin ointment Pkt 1 EACH TOPICAL ×2 (10:16→22:23)
[2021-01-22 10:50] LABS: Glucose Point of Care 122 mg/dL (70-110)
--- NOTE | 2021-01-22 11:28 | PC.NUTR ---
Nutrition assessment completed d/t consult per Mauro and MST score of 4. 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 Recommend advance diet as tolerated after procedure, with addition of Glucerna supplement at that time, and encourage po intakes of meals/supplements to optimize nutrition and promote wound healing. See full RD assessment for further details.
--- NOTE | 2021-01-22 11:31 | PC.NURSE ---
Novolog Duplicate order for novolog was on the patient's MAR. One order for the novolog was stopped and discontinued.
--- NOTE | 2021-01-22 14:19 | PM.PN ---
Subjective Subjective: Interval history: No acute events overnight,due for debridement today. Medications: Reviewed: Yes Vitals/I&O/Wt Last Vital Signs Temp 97.3 F L 01/22/21 11:47 Pulse 107 H 01/22/21 11:47 Resp 17 01/22/21 13:48 BP 97/68 01/22/21 11:47 Pulse Ox 96 01/22/21 11:47 01/21/21 01/22/21 01/22/21 22:59 06:59 14:59 Intake Total 810 / 1030 100 / 1130 100 / 100 Output Total 850 / 850 1800 / 1800 Balance 810 / 1030 -750 / 280 -1700 / -1700 Physical Exam Const: COMMON NORMALS: patient oriented x3 HENMT: COMMON NORMALS: normocephalic, atraumatic, hearing grossly normal bilaterally and external ears normal HEAD & SCALP: normocephalic and atraumatic EXTERNAL EAR: Yes external ears normal Eye: COMMON NORMALS: no scleral icterus GENERAL EYE: appearance normal, both eyes and all related structures Chest: COMMONS NORMALS: normal inspection of the chest and normal palpation of entire chest wall CHEST: Yes Symmetrical chest wall rise Resp: COMMON NORMALS: normal respiratory effort, No retractions, No use of accessory muscles and clear to auscultation bilaterally EFFORT & INSPECTION: Yes symmetric chest movement AUSCULTATION: clear to auscultation bilaterally Cardio: COMMON NORMALS: regular rate, regular rhythm, S1 normal heart sound present, S2 normal heart sound present, No gallops present (Cardio), No murmurs present (Cardio), No rub (Cardio) and Peripheral pulses 2+ throughout RATE: regular rate RHYTHM: regular rhythm HEART SOUNDS: S1 normal heart sound present and S2 normal heart sound present PERIPHERAL PULSES: Peripheral pulses 2+ throughout GI: COMMON NORMALS: Normal to inspection, nondistended, normoactive bowel sounds present, Soft to palpation, non-tender, No hepatosplenomegaly present and no masses AUSCULTATION: Yes normoactive bowel sounds PALPATION: Yes Soft to palpation and Yes No hepatosplenomegaly present RECTAL EXAM: deferred Extremity: OTHER: B/L Feet extensive ulcer and gangrene. Neuro: COMMON NORMALS: patient oriented x3 Data : 01/22/21 04:26 01/22/21 04:26 Micro: Microbiology 01/20/21 06:00 Wound Culture - Preliminary Foot Right Klebsiella oxytoca Enterobacter cloacae Staphylococcus aureus A&P Assessment and plan (1) Sepsis: Status: Acute (2) Diabetic wet gangrene of the foot: Status: Acute (3) Non compliance w medication regimen: Status: Acute (4) Psychosis: Status: Acute (5) Delirium: Status: Acute (6) Tactile hallucinations: Status: Acute (7) Diabetes: Status: Acute (8) CHF exacerbation: Status: Acute Additional A&P Information Sepsis : Secondary to diabetic foot ulcer with wet gangrene wound culture: GNRs Most likely will show polymicrobial growth:( Klebsiella oxytoca, Enterobacter Colace, staph aureus) It will be helpful in Abxs resistance evaluation. Blood culture:NTD CT lower leg RT w con:Diffuse superficial skin and subcutaneous soft tissue stranding edema or cellulitis and fluid collection in the subcutaneous space.No definite marginated abscess.The underlying presence of necrotizing fasciitis could be present. CT lower leg LT w con:Diffuse cutaneous and prominent subcutaneous soft tissue stranding edema or cellulitis and fluid.No focally marginated fluid collection to suggest abscess. ESR 19 CRP 112 CV venous duplex LE BI:No DVT bilateral lower extremities Vanco and imipenem. NPO after midnight for debridement of bilateral lower extremities under MAC tomorrow. Type 2 diabetes: Noncompliant, hemoglobin A1c 9, patient has not been taking her insulin At risk of worsening of her wound considering her noncompliant behavior Acute on chronic exacerbation OF heart failure with reduced ejection fraction: Bumex 1 mg p.o. daily Cardiology consult to rule out underlying coronary artery disease. Acute psychosis Patient does exhibit signs of acute delirium with psychosis I do believe she suffers from tactile hallucinations and picks on her skin repeatedly Will benefit from psych evaluation in am Check drug screen DVT prophylaxis SCDs Full code Attestations Medical Necessity Statement*: Patient needs to be in the hospital for management of sepsis. Coding Level of Care Code Acute Order Control Clerk Blood Bank for [facility] Fw Diagnoses Sepsis A41.9 Diabetic wet gangrene of the foot E11.52 Non compliance w medication regimen Z91.14 Psychosis F29 Delirium R41.0 Tactile hallucinations R44.2 Diabetes E11.9 CHF exacerbation I50.9
--- NOTE | 2021-01-22 14:33 | PC.NURSE ---
Off floor Patient is off the med surg floor. Patient was taken to surgery for scheduled debridement of bilateral feet.
--- NOTE | 2021-01-22 14:46 | ANES.PREANE2 ---
Pre-Anesthetic Assessment Pre-Anesthetic Assessment: Height/Weight: Height 1.63 m Weight 68.946 kg Temp Pulse Resp BP Pulse Ox 97.3 F L 107 H 17 97/68 96 01/22/21 11:47 01/22/21 11:47 01/22/21 13:48 01/22/21 11:47 01/22/21 11:47 Preop Diagnosis: bilateral LE ulcers Proposed Procedure: Operation Date: 01/22/21 14:50 Proposed Procedures p Incision And Drainage foot(Not Applicable) - Ricky Mcdonnell MD Familial anesthetic complications: None Was Beta Joan taken within 24 hours: N/A Was Clonidine taken within 24 hours: N/A Last intake: none Social: Social History: Tobacco and No alcohol Exam: Pre-Anes Outpt Exam: alert, oriented x 3, clear to auscultation bilaterally and regular rate & rhythm Additional Exam Findings (including area of procedure): coarse breath sounds b/lt Airway: Cervical ROM: WNL MP: 1 Dentition: Full CV/HEM: CV/HEM: CHF Comments: 12/07 echo CONCLUSIONS Mildly dilated left ventricle. Severe diffuse hypokinesia of the left ventricle with ejection fraction of around 20%. Mildly increased left atrial size. Moderate mitral valve regurgitation. Mild tricuspid valve regurgitation. Trivial pericardial effusion. Estimated pulmonary artery peak systolic pressure of 33 mmHg. Metabolic: Metabolic: DM Anesthetic Plan: ASA status: 4 Anesthesia: MAC Risk of > 500 ml blood loss (7ml/kg in children): No Meds/Allergies Current Medications: Current Medications Generic Name Dose Route Start Last Admin Trade Name Freq PRN Reason Stop Dose Admin Albuterol/Ipratrop ium 3 ml 01/20/21 03:26 01/21/21 03:55 Ipratropium-Albu terol 3 Ml Neb INHALATION 3 ml Q6H PRN Administration SHORTNESS OF CHRIS TH Bacitracin 1 each 01/21/21 15:00 01/22/21 10:16 Bacitracin Ointm ent Pkt TOPICAL 1 each TID MATTHEW Administration Protocol Bumetanide 1 mg 01/20/21 09:00 01/22/21 10:12 Bumetanide 1 Mg Tablet PO 1 mg DAILY MATTHEW Administration Hydromorphone HCl 0.4 mg 01/20/21 03:26 01/22/21 13:48 Hydromorphone 1 Mg/Ml Inj 1 Ml IVP 0.4 mg Q4H PRN Administration pain Imipenem/Cilastati n Sodium 250 100 mls @ 200 mls /hr 01/20/21 12:30 01/22/21 11:16 mg/ Sodium Chlor nguyễn IV Infused Q6H MATTHEW Infusion Protocol Insulin Aspart 0 unit 01/20/21 21:00 01/22/21 11:46 Insulin Aspart 1 00 Unit/1 Ml SUBCUT Not Given WM&BEDTIME MATTHEW Protocol Insulin Glargine 10 unit 01/20/21 18:00 01/20/21 17:44 Insulin Glargine 100 Units/1 Ml SUBCUT Not Given QPM MATTHEW Pantoprazole Sodiu m 40 mg 01/20/21 09:00 01/22/21 08:53 Pantoprazole 40 Mg Sdv IVP 40 mg BID MATTHEW Administration Senna/Docusate Sod ium 1 tab 01/20/21 09:00 01/22/21 10:12 Sennosides-Docus ate Tablet PO 1 tab DAILY MATTHEW Administration PFSH Anesthesia PFSH: Medical History Depression Diabetes Marijuana abuse OCD (obsessive compulsive disorder) PTSD (post-traumatic stress disorder) Seizure Suicide and self-inflicted injury Surgical History H/O: hysterectomy Family History Other CAD (coronary artery disease) Diabetes Social History Smoking and tobacco status: former smoker Alcohol intake: never Lives independently: Yes Housing: House Data Anesthesia CBC & Chem 7: 01/22/21 04:26 01/22/21 04:26 Other Labs: Laboratory Results - last 48 hr 01/20/21 01/20/21 01/21/21 16:40 20:26 06:57 WBC RBC Hgb Hct MCV MCH MCHC RDW Plt Count MPV Neut % (Auto) Lymph % (Auto) [place] % (Auto) Eos % (Auto) Baso % (Auto) Neut # (Auto) Lymph # (Auto) [place] # (Auto) Eos # (Auto) Baso # (Auto) Nucleated RBC % (auto) Nucleated RBCs # Sodium Potassium Chloride Carbon Dioxide Anion Gap BUN Creatinine GFR Calculation Glucose POC Glucose 72 82 91 Calculated Osmolality Calcium Vancomycin Trough 01/21/21 01/21/21 01/21/21 10:24 10:24 11:09 WBC 10.3 H RBC 5.58 H Hgb 14.8 Hct 48.3 H MCV 86.6 MCH 26.5 L MCHC 30.6 RDW 19.9 H Plt Count 159 MPV 9.6 Neut % (Auto) 84.1 Lymph % (Auto) 11.7 [place] % (Auto) 2.5 Eos % (Auto) 0.4 Baso % (Auto) 0.5 Neut # (Auto) 8.68 H Lymph # (Auto) 1.2 [place] # (Auto) 0.3 Eos # (Auto) 0.0 Baso # (Auto) 0.1 Nucleated RBC % (auto) 0.5 Nucleated RBCs # 0.1 Sodium 134 L Potassium 3.7 Chloride 98 Carbon Dioxide 21 L Anion Gap 18.7 BUN 29 H Creatinine 0.8 GFR Calculation 75.6 L Glucose 88 POC Glucose 93 Calculated Osmolality 283 L Calcium 8.3 L Vancomycin Trough 01/21/21 01/21/21 01/21/21 16:27 20:36 22:05 WBC RBC Hgb Hct MCV MCH MCHC RDW Plt Count MPV Neut % (Auto) Lymph % (Auto) [place] % (Auto) Eos % (Auto) Baso % (Auto) Neut # (Auto) Lymph # (Auto) [place] # (Auto) Eos # (Auto) Baso # (Auto) Nucleated RBC % (auto) Nucleated RBCs # Sodium Potassium Chloride Carbon Dioxide Anion Gap BUN Creatinine GFR Calculation Glucose POC Glucose 114 H 145 H Calculated Osmolality Calcium Vancomycin Trough 32.3 H* 01/22/21 01/22/21 01/22/21 04:26 04:26 06:09 WBC 9.1 RBC 5.17 Hgb 13.7 Hct 44.7 MCV 86.5 MCH 26.5 L MCHC 30.6 RDW 20.0 H Plt Count 147 MPV 10.1 Neut % (Auto) 79.8 Lymph % (Auto) 14.8 [place] % (Auto) 3.4 Eos % (Auto) 0.8 Baso % (Auto) 0.5 Neut # (Auto) 7.28 Lymph # (Auto) 1.4 [place] # (Auto) 0.3 Eos # (Auto) 0.1 Baso # (Auto) 0.1 Nucleated RBC % (auto) 0.4 Nucleated RBCs # 0.0 Sodium 133 L Potassium 3.5 Chloride 100 Carbon Dioxide 17 L Anion Gap 19.5 H BUN 28 H Creatinine 0.9 GFR Calculation 66.0 L Glucose 134 H POC Glucose 141 H Calculated Osmolality 283 L Calcium 7.9 L Vancomycin Trough 01/22/21 10:35 WBC RBC Hgb Hct MCV MCH MCHC RDW Plt Count MPV Neut % (Auto) Lymph % (Auto) [place] % (Auto) Eos % (Auto) Baso % (Auto) Neut # (Auto) Lymph # (Auto) [place] # (Auto) Eos # (Auto) Baso # (Auto) Nucleated RBC % (auto) Nucleated RBCs # Sodium Potassium Chloride Carbon Dioxide Anion Gap BUN Creatinine GFR Calculation Glucose POC Glucose 122 H Calculated Osmolality Calcium Vancomycin Trough Micro: Microbiology 01/20/21 06:00 Wound Culture - Preliminary Foot Right Klebsiella oxytoca Enterobacter cloacae Staphylococcus aureus Cardiac Studies: No Data to Display
--- NOTE | 2021-01-22 14:56 | PM.PN ---
Subjective Subjective: Interval history: no major issues overnight Vitals/I&O/Wt Last Vital Signs Temp 97.3 F L 01/22/21 11:47 Pulse 107 H 01/22/21 11:47 Resp 17 01/22/21 13:48 BP 97/68 01/22/21 11:47 Pulse Ox 96 01/22/21 11:47 01/21/21 01/22/21 01/22/21 22:59 06:59 14:59 Intake Total 810 / 1130 100 / 1130 100 / 100 Output Total 850 / 850 1800 / 1800 Balance 810 / 280 -750 / 280 -1700 / -1700 Physical Exam Narrative: EXAM NARRATIVE: Skin: Intact, cellulitis bilateral lower extremities below the knee with multiple ulcerations, skin maceration and areas of bed gangrene involving lower leg and foot bilaterally Data : 01/22/21 04:26 01/22/21 04:26 Micro: Microbiology 01/20/21 06:00 Wound Culture - Preliminary Foot Right Klebsiella oxytoca Enterobacter cloacae Staphylococcus aureus A&P Assessment and plan (1) Diabetic wet gangrene of the foot: 50-year-old female admitted with bilateral lower extremity cellulitis and wet gangrene which requires debridement. Plan for debridement of bilateral lower extremities under MAC Status: Acute Attestations Medical Necessity Statement*: cellulitis requiring debridement Coding Level of Care Code Acute Engine Turner for [facility] Fw Diagnoses Diabetic wet gangrene of the foot E11.52
[2021-01-22] MEDS: sodium chloride 0.9% 1,000 ML 30 ML IV (15:40)
[2021-01-22 20:59] LABS: Glucose Point of Care 104 mg/dL (70-110)
[2021-01-23] VITALS (11 sets, daily range): BP systolic 103–146; BP diastolic 72–97; PULSE 70–119; RESP 15–18; TEMP 36.2–36.9; O2SAT 86–98
[2021-01-23 06:28] LABS: Basophils % 0.3 %; Eosinophils % 0.4 %; Hematocrit 47.5 % (37.0-47.0); Hemoglobin 14.5 g/dL (11.5-15.3); Lymphocytes # 1.2 10^3/uL (0.8-4.8); Lymphocytes % 12.7 %; Mean Corpuscular HGB Conc 30.5 g/dL (30.0-36.0); Mean Corpuscular Hemoglobin 26.4 pg (28.0-34.0); Mean Corpuscular Volume 86.4 fL (81-99); Mean Platelet Volume 9.7 fL (7.4-10.4); Monocytes # 0.2 10^3/uL (0.2-0.9); Monocytes % 2.2 %; Neutrophils # 7.66 10^3/uL (1.8-7.7); Neutrophils % 83.9 %; Nucleated Red Blood Cells % 0 %; Platelet Count 160 10^3/cmm (130-400); Red Cell Distribution Width 20.6 % (12.1-15.1); White Blood Count 9.1 10^3/uL (4.0-10.0)
[2021-01-23 06:38] LABS: Glucose Point of Care 173 mg/dL (70-110)
[2021-01-23 06:59] LABS: Anion Gap 15.1 (5-19); Blood Urea Nitrogen 23 mg/dL (6-20); Carbon Dioxide 26 mmol/L (22-29); Chloride 100 mmol/L (98-107); Glomerular Filtration Rate 88.2 mL/min (90-130); Glucose 109 mg/dL (65-115); Osmolality Calculated 290 mOsm/kg (285-295); Potassium 3.1 mmol/L (3.5-5.1); Sodium 138 mmol/L (136-145)
[2021-01-23] MEDS: bacitracin ointment Pkt 1 EACH TOPICAL ×3 (08:55→21:34)
[2021-01-23] MEDS: sennosides-docusate Tablet 1 TAB PO (08:55)
[2021-01-23] MEDS: bumetanide 1 mg Tablet PO (08:55)
[2021-01-23] MEDS: pantoprazole 40 mg SDV IVP ×2 (08:57→19:51)
[2021-01-23] MEDS: HYDROmorphone 1 mg/mL INJ 1 mL 0.4 MG IVP ×2 (12:13→19:48)
[2021-01-23 12:55] LABS: Glucose Point of Care 176 mg/dL (70-110)
--- NOTE | 2021-01-23 15:57 | P.PN_ITS ---
Subjective Subjective: Interval history: No acute events overnight,s/p debridement .Resting Medications: Reviewed: Yes Vitals/I&O/Wt Last Vital Signs Temp 97.8 F 01/23/21 15:33 Pulse 119 H 01/23/21 15:33 Resp 17 01/23/21 15:33 BP 110/81 01/23/21 15:33 Pulse Ox 96 01/23/21 09:21 01/23/21 01/23/21 01/23/21 06:59 14:59 22:59 Intake Total 580 / 780 100 / 100 480 / 580 Output Total 2950 / 4750 900 / 900 Balance -2370 / -3970 -800 / -800 480 / -320 Physical Exam Const: COMMON NORMALS: patient oriented x3 HENMT: COMMON NORMALS: normocephalic, atraumatic, hearing grossly normal bilaterally and external ears normal HEAD & SCALP: normocephalic and atraumatic EXTERNAL EAR: Yes external ears normal Eye: COMMON NORMALS: no scleral icterus GENERAL EYE: appearance normal, both eyes and all related structures Chest: COMMONS NORMALS: normal inspection of the chest and normal palpation of entire chest wall CHEST: Yes Symmetrical chest wall rise Resp: COMMON NORMALS: normal respiratory effort, No retractions, No use of accessory muscles and clear to auscultation bilaterally EFFORT & INSPECTION: Yes symmetric chest movement AUSCULTATION: clear to auscultation bilaterally Cardio: COMMON NORMALS: regular rate, regular rhythm, S1 normal heart sound present, S2 normal heart sound present, No gallops present (Cardio), No murmurs present (Cardio), No rub (Cardio) and Peripheral pulses 2+ throughout RATE: regular rate RHYTHM: regular rhythm HEART SOUNDS: S1 normal heart sound present and S2 normal heart sound present PERIPHERAL PULSES: Peripheral pulses 2+ throughout GI: COMMON NORMALS: Normal to inspection, nondistended, normoactive bowel sounds present, Soft to palpation, non-tender, No hepatosplenomegaly present and no masses AUSCULTATION: Yes normoactive bowel sounds PALPATION: Yes Soft to palpation and Yes No hepatosplenomegaly present RECTAL EXAM: deferred Extremity: OTHER: B/L Feet extensive ulcer and gangrene. Neuro: COMMON NORMALS: patient oriented x3 Data : 01/23/21 05:17 01/23/21 05:17 Micro: Microbiology 01/20/21 06:00 Wound Culture - Preliminary Foot Right Klebsiella oxytoca Enterobacter cloacae Staphylococcus aureus Gram Negative Rods 01/22/21 17:11 Gram Stain - Final Leg - #1 A&P Assessment and plan (1) Sepsis: Status: Acute (2) Diabetic wet gangrene of the foot: Status: Acute (3) Non compliance w medication regimen: Status: Acute (4) Psychosis: Status: Acute (5) Delirium: Status: Acute (6) Tactile hallucinations: Status: Acute (7) Diabetes: Status: Acute (8) CHF exacerbation: Status: Acute Additional A&P Information Sepsis : Secondary to diabetic foot ulcer with wet gangrene: S/P Debridement wound culture: GNRs Most likely will show polymicrobial growth:( Klebsiella oxytoca, Enterobacter Colace, staph aureus ( It will be helpful in Abxs resistance evaluation) . Blood culture:NTD CT lower leg RT w con:Diffuse superficial skin and subcutaneous soft tissue stranding edema or cellulitis and fluid collection in the subcutaneous space.No definite marginated abscess.The underlying presence of necrotizing fasciitis could be present. CT lower leg LT w con:Diffuse cutaneous and prominent subcutaneous soft tissue stranding edema or cellulitis and fluid.No focally marginated fluid collection to suggest abscess. ESR 19 CRP 112 CV venous duplex LE BI:No DVT bilateral lower extremities Vanco and imipenem. Type 2 diabetes: Noncompliant, hemoglobin A1c 9, patient has not been taking her insulin At risk of worsening of her wound considering her noncompliant behavior Acute on chronic exacerbation OF heart failure with reduced ejection fraction: Bumex 1 mg p.o. daily Cardiology consult to rule out underlying coronary artery disease. Acute psychosis Patient does exhibit signs of acute delirium with psychosis I do believe she suffers from tactile hallucinations and picks on her skin repeatedly Will benefit from psych evaluation in am Check drug screen DVT prophylaxis SCDs Full code Attestations Medical Necessity Statement*: Patient needs to be hospital for the management of sepsis and the need for I.V abxs Coding Level of Care Code Acute Lead Generation Marketing Manager for [facility] Fw Diagnoses Sepsis A41.9 Diabetic wet gangrene of the foot E11.52 Non compliance w medication regimen Z91.14 Psychosis F29 Delirium R41.0 Tactile hallucinations R44.2 Diabetes E11.9 CHF exacerbation I50.9
[2021-01-23 17:15] LABS: Glucose Point of Care 129 mg/dL (70-110)
[2021-01-23] MEDS: insulin glargine 100 units/1 mL 10 UNIT SUBCUT (19:54)
[2021-01-23 22:05] LABS: Glucose Point of Care 198 mg/dL (70-110)
[2021-01-23 22:06] LABS: Glucose Point of Care 209 mg/dL (70-110)
[2021-01-24] VITALS (13 sets, daily range): BP systolic 93–98; BP diastolic 65–75; PULSE 11–113; RESP 16–22; TEMP 36.3–36.4; O2SAT 91–99
[2021-01-24] MEDS: HYDROmorphone 1 mg/mL INJ 1 mL 0.4 MG IVP ×5 (00:39→17:58)
[2021-01-24 05:05] LABS: Basophils % 0.4 %; Eosinophils # 0.1 10^3/uL (0.0-0.8); Eosinophils % 0.9 %; Hematocrit 43.7 % (37.0-47.0); Hemoglobin 13.8 g/dL (11.5-15.3); Lymphocytes # 1.9 10^3/uL (0.8-4.8); Lymphocytes % 21.9 %; Mean Corpuscular HGB Conc 31.6 g/dL (30.0-36.0); Mean Corpuscular Hemoglobin 26.7 pg (28.0-34.0); Mean Corpuscular Volume 84.7 fL (81-99); Mean Platelet Volume 10.1 fL (7.4-10.4); Monocytes # 0.3 10^3/uL (0.2-0.9); Monocytes % 3.8 %; Neutrophils # 6.13 10^3/uL (1.8-7.7); Neutrophils % 72.6 %; Nucleated Red Blood Cells % 0 %; Platelet Count 165 10^3/cmm (130-400); Red Blood Count 5.16 10^6/uL (4.1-5.3); Red Cell Distribution Width 20.4 % (12.1-15.1); White Blood Count 8.4 10^3/uL (4.0-10.0)
[2021-01-24 05:32] LABS: Anion Gap 13.6 (5-19); Blood Urea Nitrogen 16 mg/dL (6-20); Calcium 7.6 mg/dL (8.5-10.5); Carbon Dioxide 28 mmol/L (22-29); Chloride 97 mmol/L (98-107); Glomerular Filtration Rate 105.4 mL/min (90-130); Glucose 46 mg/dL (65-115); Osmolality Calculated 280 mOsm/kg (285-295); Sodium 136 mmol/L (136-145)
[2021-01-24 05:34] LABS: Potassium 2.6 mmol/L (3.5-5.1)
[2021-01-24 06:46] LABS: Glucose Point of Care 120 mg/dL (70-110)
[2021-01-24] MEDS: potassium chloride premix 100 ML 25 MEQ IV (08:24)
[2021-01-24] MEDS: lidocaine 1% INJ 20 mL 5 ML IV (08:24)
[2021-01-24] MEDS: bumetanide 1 mg Tablet PO (08:25)
[2021-01-24] MEDS: sennosides-docusate Tablet 1 TAB PO (08:25)
[2021-01-24] MEDS: pantoprazole 40 mg SDV IVP ×2 (08:25→17:30)
--- NOTE | 2021-01-24 10:00 | PC.NURSE ---
dressing change done to BLE with Dr Osorio in room. wounds cleansed with NS and Hydrafera Blue put in place. RIDGE and [place] over BLE.
[2021-01-24] MEDS: bacitracin ointment Pkt 1 EACH TOPICAL ×3 (10:46→21:12)
[2021-01-24] MEDS: potassium chloride ER 20 mEq Tablet 40 MEQ PO (10:46)
--- NOTE | 2021-01-24 11:20 | PM.PN ---
Subjective Subjective: Interval history: Patient was seen and examined this morning, wound dressing was changed, wound is currently healing well. Currently she continues to be on Bumex, with good urine output, and decreasing bilateral lower extremity swelling. Medications: Reviewed: Yes Vitals/I&O/Wt Last Vital Signs Temp 97.5 F L 01/24/21 07:23 Pulse 113 H 01/24/21 08:18 Resp 22 H 01/24/21 08:49 BP 98/65 01/24/21 07:23 Pulse Ox 95 01/24/21 08:18 01/23/21 01/24/21 01/24/21 22:59 06:59 14:59 Intake Total 1160 / 1260 1555.5 / 2815.5 Output Total 2350 / 3250 Balance 1160 / 360 -794.5 / -434.5 Physical Exam Const: COMMON NORMALS: patient oriented x3 HENMT: COMMON NORMALS: normocephalic, atraumatic, hearing grossly normal bilaterally and external ears normal HEAD & SCALP: normocephalic and atraumatic EXTERNAL EAR: Yes external ears normal Eye: COMMON NORMALS: no scleral icterus GENERAL EYE: appearance normal, both eyes and all related structures Chest: COMMONS NORMALS: normal inspection of the chest and normal palpation of entire chest wall CHEST: Yes Symmetrical chest wall rise Resp: COMMON NORMALS: normal respiratory effort, No retractions, No use of accessory muscles and clear to auscultation bilaterally EFFORT & INSPECTION: Yes symmetric chest movement AUSCULTATION: clear to auscultation bilaterally Cardio: COMMON NORMALS: regular rate, regular rhythm, S1 normal heart sound present, S2 normal heart sound present, No gallops present (Cardio), No murmurs present (Cardio), No rub (Cardio) and Peripheral pulses 2+ throughout RATE: regular rate RHYTHM: regular rhythm HEART SOUNDS: S1 normal heart sound present and S2 normal heart sound present PERIPHERAL PULSES: Peripheral pulses 2+ throughout GI: COMMON NORMALS: Normal to inspection, nondistended, normoactive bowel sounds present, Soft to palpation, non-tender, No hepatosplenomegaly present and no masses AUSCULTATION: Yes normoactive bowel sounds PALPATION: Yes Soft to palpation and Yes No hepatosplenomegaly present RECTAL EXAM: deferred Extremity: OTHER: B/L Feet extensive ulcer and gangrene. Neuro: COMMON NORMALS: patient oriented x3 Data : 01/24/21 04:29 01/24/21 04:29 Micro: Microbiology 01/20/21 06:00 Wound Culture - Final Foot Right Klebsiella oxytoca Enterobacter cloacae Staphylococcus aureus Proteus mirabilis A&P Assessment and plan (1) Sepsis: Status: Acute (2) Diabetic wet gangrene of the foot: Status: Acute (3) Non compliance w medication regimen: Status: Acute (4) Psychosis: Status: Acute (5) Delirium: Status: Acute (6) Tactile hallucinations: Status: Acute (7) Diabetes: Status: Acute (8) CHF exacerbation: Status: Acute Additional A&P Information Sepsis : Secondary to diabetic foot ulcer with wet gangrene: S/P Debridement wound culture: GNRs Most likely will show polymicrobial growth:( Klebsiella oxytoca, Enterobacter Colace, Proteus mirabilis, staph aureus) ( It will be helpful in Abxs resistance evaluation) . Blood culture:NTD CT lower leg RT w con:Diffuse superficial skin and subcutaneous soft tissue stranding edema or cellulitis and fluid collection in the subcutaneous space.No definite marginated abscess.The underlying presence of necrotizing fasciitis could be present. CT lower leg LT w con:Diffuse cutaneous and prominent subcutaneous soft tissue stranding edema or cellulitis and fluid.No focally marginated fluid collection to suggest abscess. ESR 19 CRP 112 CV venous duplex LE BI:No DVT bilateral lower extremities Vanco and imipenem. Patient can be switched to p.o. antibiotics on discharge, for a total duration of 14 days. She will follow wound care clinic as outpatient Appreciate surgery Input. ( Dr. Mcdonnell ) Type 2 diabetes: Noncompliant, hemoglobin A1c 9, patient has not been taking her insulin At risk of worsening of her wound considering her noncompliant behavior Acute on chronic exacerbation OF heart failure with reduced ejection fraction: Bumex 1 mg p.o. daily Cardiology consult to rule out underlying coronary artery disease. Acute psychosis Patient does exhibit signs of acute delirium with psychosis I do believe she suffers from tactile hallucinations and picks on her skin repeatedly Will benefit from psych evaluation in am Check drug screen DVT prophylaxis SCDs Full code Attestations Medical Necessity Statement*: Patient needs to be in the Hospital for management of heart failure, sepsis, need for I.V Abxs Coding Level of Care Code Acute Scientist/Engineer for [facility] Fw Diagnoses Sepsis A41.9 Diabetic wet gangrene of the foot E11.52 Non compliance w medication regimen Z91.14 Psychosis F29 Delirium R41.0 Tactile hallucinations R44.2 Diabetes E11.9 CHF exacerbation I50.9
[2021-01-24 11:40] LABS: Glucose Point of Care 147 mg/dL (70-110)
[2021-01-24 16:24] LABS: Glucose Point of Care 100 mg/dL (70-110)
--- NOTE | 2021-01-24 20:30 | PC.NURSE ---
Shift Note Frequent safety and comfort rounds continue. Orders and/or nursing care completed as indicated. Patient monitored for response to intervention and treatment(s). Education provided includes[]. Patient and/or cordage sales representative [[email or web address]]. Will continue to monitor.
[2021-01-25] VITALS (9 sets, daily range): BP systolic 77–106; BP diastolic 56–76; PULSE 105–125; RESP 16–20; TEMP 36.3–36.7; O2SAT 95–100
[2021-01-25 02:59] LABS: Glucose Point of Care 106 mg/dL (70-110)
--- NOTE | 2021-01-25 06:19 | PC.NURSE ---
Shift Note Frequent safety and comfort rounds continue. Orders and/or nursing care completed as indicated. Patient monitored for response to intervention and treatment(s). Education provided includes[wound care to bilatral lower extremities.]. Patient and/or insurance account representative verbalized understanding. Patient has had no complaints pf pain during this shift. Patient requesting to have shower during day shift, this nurse will pass on during shift change reporting. Will continue to monitor.
[2021-01-25 06:53] LABS: Glucose Point of Care 142 mg/dL (70-110)
[2021-01-25] MEDS: sennosides-docusate Tablet 1 TAB PO (08:47)
[2021-01-25] MEDS: pantoprazole 40 mg SDV IVP (08:47)
[2021-01-25] MEDS: bumetanide 1 mg Tablet PO (08:47)
[2021-01-25] MEDS: bacitracin ointment Pkt 1 EACH TOPICAL ×2 (08:47→15:32)
[2021-01-25] MEDS: potassium chloride ER 20 mEq Tablet 40 MEQ PO (08:47)
[2021-01-25 12:05] LABS: Glucose Point of Care 230 mg/dL (70-110)
[2021-01-25] MEDS: HYDROmorphone 1 mg/mL INJ 1 mL 0.4 MG IVP (15:23)
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
[2021-01-25 17:16] LABS: Glucose Point of Care 111 mg/dL (70-110)
--- NOTE | 2021-01-25 17:28 | PM.OP ---
Operative Report Date of procedure: January 22, 2021 Pre-op Diagnosis: Unstageable bilateral LE ulcers Post-op Diagnosis: 1. Stage III ulcer right foot measuring 6 x 4 x 1.5 cm 2. Stage II ulcer right leg measuring 1.5 x 2 x 1 cm 3. Stage II ulcer left leg measuring 4 x 3 x 1.5 cm 4. Stage II ulcer left medial ankle measuring 1.5 x 1.5 x 1 cm 5. Stage II ulcer left lateral ankle measuring 2 x 2 x 1 cm 6. Stage III ulcer left foot measuring 5 x 4 cm x 2 cm 7. Stage II ulcer left medial foot measuring 2 x 2 cm x 1 cm Procedure Done: 1. Excisional debridement of skin and subcutaneous tissue of stage III ulcer right foot measuring 6 x 4 x 1.5 cm 2. Excisional debridement of skin and subcutaneous tissue of Stage II ulcer right leg measuring 1.5 x 2 x 1 cm 3. Excisional debridement of skin and subcutaneous tissue of Stage II ulcer left leg measuring 4 x 3 x 1.5 cm 4. Excisional debridement of skin and subcutaneous tissue of Stage II ulcer left medial ankle measuring 1.5 x 1.5 x 1 cm 5. Excisional debridement of skin and subcutaneous tissue of Stage II ulcer left lateral ankle measuring 2 x 2 x 1 cm 6. Excisional debridement of skin and subcutaneous tissue of Stage III ulcer left foot measuring 5 x 4 cm x 2 cm 7. Excisional debridement of skin and subcutaneous tissue of Stage II ulcer left medial foot measuring 2 x 2 cm x 1 cm Specimens removed/disposition: wound cultures Surgeon: Ricky Mcdonnell Anesthesia: MAC Condition: stable Disposition: PACU Procedure: The patient was taken to the operating room and placed under MAC after IV antibiotic had been administered. Patient is on therapeutic antibiotics. Bilateral lower extremities were prepped and draped in a sterile manner. Using 15 blade excisional debridement of necrotic skin and subcutaneous tissue was performed until there was punctate bleeding noted on ulcer right foot measuring 6 x 4 x 1.5 cm. The wound was irrigated with saline, hemostasis ensured with electrocautery. Using 15 blade excisional debridement of necrotic skin and subcutaneous tissue was performed until there was punctate bleeding noted on ulcer right leg measuring 1.5 x 2 x 1 cm. The wound was irrigated with saline, hemostasis ensured with electrocautery. Using 15 blade excisional debridement of necrotic skin and subcutaneous tissue was performed until there was punctate bleeding noted on ulcer left leg measuring 4 x 3 x 1.5 cm. The wound was irrigated with saline, hemostasis ensured with electrocautery. Using 15 blade excisional debridement of necrotic skin and subcutaneous tissue was performed until there was punctate bleeding noted on ulcer left medial ankle measuring 1.5 x 1.5 x 1 cm. The wound was irrigated with saline, hemostasis ensured with electrocautery. Using 15 blade excisional debridement of necrotic skin and subcutaneous tissue was performed until there was punctate bleeding noted on ulcer left lateral ankle measuring 2 x 2 x 1 cm. The wound was irrigated with saline, hemostasis ensured with electrocautery. Using 15 blade excisional debridement of necrotic skin and subcutaneous tissue was performed until there was punctate bleeding noted on ulcer left foot measuring 5 x 4 cm x 2 cm. The wound was irrigated with saline, hemostasis ensured with electrocautery. Using 15 blade excisional debridement of necrotic skin and subcutaneous tissue was performed until there was punctate bleeding noted on ulcer left medial foot measuring 2 x 2 cm x 1 cm. The wound was irrigated with saline, hemostasis ensured with electrocautery. Wounds were packed with wet gauze and covered with ABDs and Kerlix. The patient was transferred to recovery room in stable condition.
[2021-01-25] MEDS: enoxaparin 40 mg/0.4 mL Syringe SUBCUT (17:31)
[2021-01-25] MEDS: potassium chloride oral liq 20 mEq/15 mL UDC 40 MEQ PO (17:31)
--- NOTE | 2021-01-25 20:00 | PC.NURSE ---
I report high pluse to the nurse 122 pluse rate
[2021-01-25 21:41] LABS: Vancomycin Trough 4.5 ug/mL (10-15)
[2021-01-25] MEDS: ALPRAZolam 0.5 mg Tablet PO (21:49)
[2021-01-25] MEDS: ciprofloxacin 500 mg Tablet PO (21:49)
[2021-01-25] MEDS: insulin glargine 100 units/1 mL 10 UNIT SUBCUT (22:04)
[2021-01-25 22:32] LABS: Glucose Point of Care 223 mg/dL (70-110)
[2021-01-26] VITALS (10 sets, daily range): BP systolic 81–110; BP diastolic 46–76; PULSE 82–116; RESP 16–22; TEMP 35.5–37.2; O2SAT 92–99
[2021-01-26 03:13] LABS: Basophils # 0.1 10^3/uL (0.0-0.1); Basophils % 0.7 %; Eosinophils # 0.1 10^3/uL (0.0-0.8); Eosinophils % 0.7 %; Hematocrit 44.7 % (37.0-47.0); Hemoglobin 14.1 g/dL (11.5-15.3); Lymphocytes # 2.2 10^3/uL (0.8-4.8); Lymphocytes % 29.2 %; Mean Corpuscular HGB Conc 31.5 g/dL (30.0-36.0); Mean Corpuscular Hemoglobin 26.4 pg (28.0-34.0); Mean Corpuscular Volume 83.6 fL (81-99); Mean Platelet Volume 9.5 fL (7.4-10.4); Monocytes # 0.4 10^3/uL (0.2-0.9); Monocytes % 4.9 %; Neutrophils # 4.87 10^3/uL (1.8-7.7); Neutrophils % 64.1 %; Nucleated Red Blood Cells % 0 %; Platelet Count 152 10^3/cmm (130-400); Red Blood Count 5.35 10^6/uL (4.1-5.3); Red Cell Distribution Width 20.9 % (12.1-15.1); White Blood Count 7.6 10^3/uL (4.0-10.0)
[2021-01-26 03:36] LABS: Blood Urea Nitrogen 15 mg/dL (6-20); Calcium 7.4 mg/dL (8.5-10.5); Carbon Dioxide 26 mmol/L (22-29); Chloride 95 mmol/L (98-107); Glomerular Filtration Rate 130.1 mL/min (90-130); Glucose 119 mg/dL (65-115); Osmolality Calculated 282 mOsm/kg (285-295); Sodium 135 mmol/L (136-145)
[2021-01-26 03:41] LABS: Anion Gap 17.7 (5-19); Potassium 3.7 mmol/L (3.5-5.1)
--- NOTE | 2021-01-26 04:21 | PC.NURSE ---
i reported high pluse to nurse 101
--- NOTE | 2021-01-26 05:23 | PC.NURSE ---
Shift Note Frequent safety and comfort rounds continue. Orders and nursing care completed as indicated. Patient monitored for response to intervention and treatments. Education provided includes related to safety, wound care. Patient requires reinforcement, patient alert and oriented with confusions present mainly pertaining to events, patient verbalized that the anti-bloodclot medicine is making her belly big, outer dressing to BLE changed due to excessive drainage, hydrofera blue left in wounds. patient rested this shift. woke up when staff awakens for vitals and cares, patient c/o not sleeping.
[2021-01-26] MEDS: HYDROmorphone 1 mg/mL INJ 1 mL 0.4 MG IVP (06:06)
[2021-01-26 06:34] LABS: Glucose Point of Care 141 mg/dL (70-110)
[2021-01-26] MEDS: ciprofloxacin 500 mg Tablet PO ×2 (08:24→22:04)
[2021-01-26] MEDS: sennosides-docusate Tablet 1 TAB PO (08:25)
[2021-01-26] MEDS: potassium chloride ER 20 mEq Tablet 40 MEQ PO (08:25)
[2021-01-26] MEDS: sodium chloride 0.9% 1,000 ML 999 ML IV (08:33)
[2021-01-26] MEDS: bacitracin ointment Pkt 1 EACH TOPICAL ×3 (10:17→22:03)
[2021-01-26] MEDS: glycerin adult supp 1 EACH PR (10:32)
[2021-01-26 11:55] LABS: Glucose Point of Care 95 mg/dL (70-110)
--- NOTE | 2021-01-26 12:12 | P.PN_ITS ---
Subjective Subjective: Interval history: Patient was seen and examined this morning, she was complaining of constipation, her blood pressure was soft systolic blood pressure 88, she was given 1 L normal saline bolus, asked nurse to hold off on her trazodone No overnight events, she is agreeable to go to a intermediate Vitals/I&O/Wt Last Vital Signs Temp 95.9 F L 01/26/21 11:16 Pulse 114 H 01/26/21 11:16 Resp 18 01/26/21 11:16 BP 83/64 01/26/21 11:16 Pulse Ox 92 01/26/21 11:16 01/25/21 01/26/21 01/26/21 22:59 06:59 14:59 Intake Total 340 / 680 1360 / 1360 Output Total 300 / 3100 650 / 3750 Balance 40 / -2420 -650 / -3070 1360 / 1360 Physical Exam Narrative: EXAM NARRATIVE: Patient was sitting in her bed Had new dressing on her legs bilaterally Bilateral lower extremity 2+ pitting edema Abdomen soft no signs of peritonitis No active chest pain S1, S2 no murmur appreciated Bilateral breath sounds without adventitious rhonchi or crackles No neurological deficits Data : 01/26/21 02:23 01/26/21 02:23 Micro: Microbiology 01/22/21 17:11 Gram Stain - Final Leg - #1 Tissue Culture - Preliminary Enterobacter aerogenes Proteus mirabilis Staphylococcus aureus A&P Assessment and plan (1) CHF exacerbation: Status: Acute (2) Tactile hallucinations: Status: Acute (3) Delirium: Status: Acute (4) Psychosis: Status: Acute (5) Diabetic wet gangrene of the foot: Status: Acute (6) Sepsis: Status: Acute (7) Non compliance w medication regimen: Status: Acute (8) Sleep apnea: Status: Acute Additional A&P Information Sepsis with wet gangrene Diabetic foot ulcer Status post debridement Culture and sensitivity reviewed, patient was switched to p.o. antibiotics yesterday, she has stayed afebrile, low blood pressure today for which she required normal saline bolus Topical antibiotics wound dressing recommendations as per general surgery Hypokalemia: Potassium within normal range Delirium Psychotic features on admission U tox positive for methamphetamine, requested psych consult Poorly controlled type 2 diabetes: Her Lantus dose was increased yesterday Fasting blood sugars seem to be within normal range Moderate sliding scale Acute exacerbation of reduced action fraction heart failure Reduce Bumex dose 0.5mg secondary to hypotension Lovenox DVT prophylaxis Full code Cardiac consistent carb diet Patient is agreeable to go to intermediate Attestations Medical Necessity Statement*: Anticipating discharge to intermediate when she gets accepted, Time Spent in Patient Care: less than 15 minutes Coding Level of Care Code Acute 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
--- NOTE | 2021-01-26 15:45 | PC.NUTR ---
Nutrition Note: Patient notified dietary that she is allergic to mushrooms, honeydew and tomato.
[2021-01-26] MEDS: enoxaparin 40 mg/0.4 mL Syringe SUBCUT (16:48)
[2021-01-26 16:59] LABS: Glucose Point of Care 108 mg/dL (70-110)
--- NOTE | 2021-01-26 18:12 | PC.NURSE ---
Shift Note: Dressing to bilateral legs and feet changed during this shift, patient tolerated care fair. Patients mother was in the room with patient during visiting hours. Frequent safety and comfort rounds continue. Orders and/or nursing care completed as indicated. Patient monitored for response to intervention and treatment(s). Education provided includes dressing changes, s/s of infection, hypotension, and pain management. Patient and/or customer loyalty representative states verbal understanding. Will continue to monitor.
[2021-01-26 21:32] LABS: Glucose Point of Care 93 mg/dL (70-110)
[2021-01-27] VITALS (9 sets, daily range): BP systolic 83–99; BP diastolic 61–71; PULSE 98–116; RESP 16–21; TEMP 35.7–36.8; O2SAT 92–100
[2021-01-27] MEDS: acetaminophen 500 mg Tablet PO (00:13)
--- NOTE | 2021-01-27 00:20 | PC.NURSE ---
i reported high pluse 108 to nurse
[2021-01-27 04:00] LABS: Basophils # 0.1 10^3/uL (0.0-0.1); Basophils % 0.8 %; Eosinophils % 0.5 %; Hematocrit 45.3 % (37.0-47.0); Hemoglobin 14.3 g/dL (11.5-15.3); Lymphocytes # 2.5 10^3/uL (0.8-4.8); Lymphocytes % 28.6 %; Mean Corpuscular HGB Conc 31.6 g/dL (30.0-36.0); Mean Corpuscular Hemoglobin 26.2 pg (28.0-34.0); Mean Corpuscular Volume 83.1 fL (81-99); Mean Platelet Volume 10.9 fL (7.4-10.4); Monocytes # 0.4 10^3/uL (0.2-0.9); Monocytes % 4.4 %; Neutrophils # 5.78 10^3/uL (1.8-7.7); Neutrophils % 65.1 %; Nucleated Red Blood Cells % 0 %; Platelet Count 185 10^3/cmm (130-400); Red Blood Count 5.45 10^6/uL (4.1-5.3); Red Cell Distribution Width 21.6 % (12.1-15.1); White Blood Count 8.9 10^3/uL (4.0-10.0)
[2021-01-27 04:14] LABS: Blood Urea Nitrogen 18 mg/dL (6-20); Calcium 7.6 mg/dL (8.5-10.5); Carbon Dioxide 22 mmol/L (22-29); Chloride 96 mmol/L (98-107); Glomerular Filtration Rate 130.1 mL/min (90-130); Glucose 80 mg/dL (65-115); Osmolality Calculated 281 mOsm/kg (285-295); Sodium 135 mmol/L (136-145)
[2021-01-27 04:16] LABS: Anion Gap 21.7 (5-19); Potassium 4.7 mmol/L (3.5-5.1)
--- NOTE | 2021-01-27 04:21 | PC.NURSE ---
I reported low temp 97.5 and high pluse 113 to nurse
[2021-01-27 06:14] LABS: Glucose Point of Care 94 mg/dL (70-110)
[2021-01-27] MEDS: bacitracin ointment Pkt 1 EACH TOPICAL ×2 (08:32→21:12)
[2021-01-27] MEDS: sennosides-docusate Tablet 1 TAB PO (08:33)
[2021-01-27] MEDS: ciprofloxacin 500 mg Tablet PO ×2 (08:33→21:11)
[2021-01-27] MEDS: potassium chloride ER 20 mEq Tablet 40 MEQ PO (08:33)
[2021-01-27 11:36] LABS: Glucose Point of Care 163 mg/dL (70-110)
--- NOTE | 2021-01-27 11:38 | PM.PN ---
Subjective Subjective: Interval history: Patient was seen and examined this morning, still hypotensive she received normal saline bolus yesterday, Bumex on hold, albumin 3.1, she has been polyuric more than 3 L urine output in last 24 hours, started normal saline today, sodium 135 she has stayed afebrile pulse 116, normal TSH Constipation improved Vitals/I&O/Wt Last Vital Signs Temp 98.1 F 01/27/21 08:39 Pulse 116 H 01/27/21 08:39 Resp 19 H 01/27/21 08:39 BP 93/71 01/27/21 08:39 Pulse Ox 92 01/27/21 08:39 01/26/21 01/27/21 01/27/21 22:59 06:59 14:59 Intake Total 240 / 1960 200 / 200 Output Total 50 / 50 200 / 250 Balance 190 / 1910 -200 / 1710 200 / 200 Physical Exam Narrative: EXAM NARRATIVE: Patient was sitting in her bed without any active discomfort S1, S2 sinus rhythm Multiple scabs all over her extremities without any active cellulitis Bilateral lower extremity 2+ pitting edema dressing with hydrocolloid and zinc Soft abdomen no signs of peritonitis Bilateral breath sounds without adventitious rhonchi or crackles Disorganized thinking Tactile hallucinations Data : 01/27/21 03:12 01/27/21 03:12 Micro: Microbiology 01/22/21 17:11 Gram Stain - Final Leg - #1 Tissue Culture - Final Enterobacter aerogenes Proteus mirabilis Staphylococcus aureus Other data: 1. Excisional debridement of skin and subcutaneous tissue of stage III ulcer right foot measuring 6 x 4 x 1.5 cm 2. Excisional debridement of skin and subcutaneous tissue of Stage II ulcer right leg measuring 1.5 x 2 x 1 cm 3. Excisional debridement of skin and subcutaneous tissue of Stage II ulcer left leg measuring 4 x 3 x 1.5 cm 4. Excisional debridement of skin and subcutaneous tissue of Stage II ulcer left medial ankle measuring 1.5 x 1.5 x 1 cm 5. Excisional debridement of skin and subcutaneous tissue of Stage II ulcer left lateral ankle measuring 2 x 2 x 1 cm 6. Excisional debridement of skin and subcutaneous tissue of Stage III ulcer left foot measuring 5 x 4 cm x 2 cm 7. Excisional debridement of skin and subcutaneous tissue of Stage II ulcer left medial foot measuring 2 x 2 cm x 1 cm A&P Assessment and plan (1) CHF exacerbation: Status: Acute (2) Tactile hallucinations: Status: Acute (3) Delirium: Status: Acute (4) Psychosis: Status: Acute (5) Diabetic wet gangrene of the foot: Status: Acute (6) Sepsis: Status: Acute (7) Diabetes: Status: Acute (8) Non compliance w medication regimen: Status: Acute (9) Sleep apnea: Status: Acute Additional A&P Information Sepsis with wet gangrene of foot bilaterally Patient stayed hypotensive, tachycardic and tachypneic however white count is 8.9, she has been afebrile Polyuria noted most likely the cause of tachycardia with intravascular volume depletion Started on fluids today, Bumex on hold Antibiotics changed to p.o. Culture sensitivity reviewed No bacteremia Plan to discharge retirement with 2 weeks of antibiotics Wound care appointments/follow-up for stage II and III ulcer of bilateral foot, currently getting dressing change every day with hydrocolloid and zinc topical bacitracin Hypotension: Related to polyuria, TSH normal, she has been getting opioids, does not have typical opioid overdose symptoms, will check cortisol level 8 AM in the morning Tactile hallucination and delirium psychotic features are persistent: We will follow up with psych consult and recommendations Hypokalemia: Repleted Poorly controlled type 2 diabetes: Euglycemic today CHF exacerbation with bilateral lower extremity edema: Bumex on hold secondary to hypotension Consistent carb diet Awaiting placement to prison Attestations Medical Necessity Statement*: Continue medical management awaiting placement to prison Time Spent in Patient Care: 16 - 35 minutes Coding Level of Care Code 

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
[2021-01-27] MEDS: enoxaparin 40 mg/0.4 mL Syringe SUBCUT (17:13)
[2021-01-27] MEDS: sertraline 50 mg Tablet PO (17:13)
[2021-01-27 17:15] LABS: Glucose Point of Care 143 mg/dL (70-110)
[2021-01-27] MEDS: trazodone 100 mg Tablet PO (21:11)
[2021-01-27] MEDS: ondansetron 2 mg/ML SDV 2 mL 4 MG IVP (21:11)
[2021-01-27 21:32] LABS: Glucose Point of Care 87 mg/dL (70-110)
[2021-01-27] MEDS: insulin glargine 100 units/1 mL 10 UNIT SUBCUT (22:04)
[2021-01-28] VITALS (9 sets, daily range): BP systolic 85–181; BP diastolic 62–84; PULSE 88–104; RESP 15–18; TEMP 35.8–36.2; O2SAT 90–100
[2021-01-28 05:28] LABS: Basophils % 0.5 %; Eosinophils % 0.5 %; Hematocrit 44.6 % (37.0-47.0); Lymphocytes % 25.8 %; Mean Corpuscular HGB Conc 31.4 g/dL (30.0-36.0); Mean Corpuscular Hemoglobin 26.5 pg (28.0-34.0); Mean Corpuscular Volume 84.3 fL (81-99); Mean Platelet Volume 11.2 fL (7.4-10.4); Monocytes # 0.4 10^3/uL (0.2-0.9); Monocytes % 5.1 %; Neutrophils # 5.34 10^3/uL (1.8-7.7); Neutrophils % 67.6 %; Nucleated Red Blood Cells % 0.3 %; Platelet Count 189 10^3/cmm (130-400); Red Blood Count 5.29 10^6/uL (4.1-5.3); Red Cell Distribution Width 21.8 % (12.1-15.1); White Blood Count 7.9 10^3/uL (4.0-10.0)
--- NOTE | 2021-01-28 05:57 | PC.NURSE ---
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 SHe noted that daytime therapy would be more beneficial.
[2021-01-28 06:05] LABS: Anion Gap 19.3 (5-19); Blood Urea Nitrogen 24 mg/dL (6-20); Calcium 7.1 mg/dL (8.5-10.5); Carbon Dioxide 21 mmol/L (22-29); Chloride 97 mmol/L (98-107); Glomerular Filtration Rate 105.4 mL/min (90-130); Glucose 67 mg/dL (65-115); Osmolality Calculated 276 mOsm/kg (285-295); Potassium 5.3 mmol/L (3.5-5.1); Sodium 132 mmol/L (136-145)
[2021-01-28 06:44] LABS: Glucose Point of Care 57 mg/dL (70-110)
[2021-01-28] MEDS: FUROsemide 20 mg Tablet PO (08:23)
[2021-01-28] MEDS: sertraline 50 mg Tablet PO (08:23)
[2021-01-28] MEDS: sennosides-docusate Tablet 1 TAB PO (08:23)
[2021-01-28] MEDS: ciprofloxacin 500 mg Tablet PO ×2 (08:23→20:44)
[2021-01-28] MEDS: bacitracin ointment Pkt 1 EACH TOPICAL ×3 (08:25→20:46)
[2021-01-28] MEDS: ondansetron 2 mg/ML SDV 2 mL 4 MG IVP (09:17)
[2021-01-28 09:24] LABS: Glucose Point of Care 64 mg/dL (70-110)
[2021-01-28 09:46] LABS: Cortisol Random 22.96 ug/dL (2.47-19.5)
--- NOTE | 2021-01-28 09:51 | CT_ITS ---
WS: [id number] CT ABDOMEN PELVIS TECHNIQUE: Contrast-enhanced CT of the abdomen and pelvis with coronal and sagittal reformatted image s. CLINICAL INFORMATION: emesis COMPARISON: None. DLP: 1817.[address] scans at [facility] use at least one of these dose optimization techniques: automat ed exposure control; mA and/or kV adjustment per patient size (includes targeted exams where dose is matched to clinical indication); or iterative reconstruction. FINDINGS: Diffuse fatty infiltration of the liver. Normal portal vein and splenic vein. Marked diffuse body wal l anasarca. Moderate right and small left pleural effusions. Atelectasis in the lung bases. Cardiomeg mac. Normal spleen. Pancreas appears normal. Adrenal glands are normal. Normal renal parenchymal enha ncement. No hydronephrosis. Right renal cyst. Normal caliber abdominal aorta. Sigmoid constipation. No evidence of high-grade small or large bowel obstruction. Mild fecal retention in the transverse colon. Stomach is decompressed with a small amoun t of fluid. Small amount of free fluid in the pelvis. Urine distended bladder. Normal lumbar spine. CT/CT abdomen pelvis w con* 10804 IMPRESSION: 1. Marked diffuse body wall anasarca with mesenteric edema. Small amount of fl uid in the pelvis 2. Normal bilateral renal parenchymal enhancement. No hydronephrosis. Small ri ght renal cyst measuring 13 mm. 3. Diffuse fatty infiltration of the liver. 4. Normal caliber abdominal aorta. 5. Mild sigmoid constipation. 6. No evidence of small or large bowel obstruction. Small amount of fluid in t he stomach which is otherwise decompressed.
[2021-01-28] MEDS: dextrose 50% syringe 50 mL IVP (10:23)
[2021-01-28] MEDS: calcium gluconate 0.1 gm/mL 10% SDV 10mL 1 GM IVP (10:24)
[2021-01-28 10:29] LABS: Glucose Point of Care 55 mg/dL (70-110)
[2021-01-28 11:15] LABS: Glucose Point of Care 120 mg/dL (70-110)
--- NOTE | 2021-01-28 11:42 | ECG_ITS ---
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1970 Requested By: Vance Adams Order Number: [id number] Reading MD: VANCE AMARO Measurements Intervals [place] Rate: 101 P: 42 SD: 142 QRS: 48 QRSD: 84 T: 120 QT: 364 QTc: 473 Interpretive Statements SINUS TACHYCARDIA LOW QRS VOLTAGE IN EXTREMITY LEADS [QRS DEFLECTION < 0.5 mV IN LIMB LEADS] POSSIBLE ANTERIOR MYOCARDIAL INFARCTION [30 ms Q WAVE IN V3/V4, OR R < 0.2 mV IN V4], OF INDETERMINATE AGE Compared to ECG 11/19/2020 19:21:18 Low QRS voltage now present Ventricular premature complex(es) no longer present Myocardial infarct finding still present Electronically Signed On 01-28-2021 21:21:52 CDT by VANCE AMARO [id number]
--- NOTE | 2021-01-28 11:45 | PM.PN ---
Subjective Subjective: Interval history: overnight patient has been experiencing multiple episode of emesis however not endorsing chest pain or shortness of breath, she has stayed afebrile, she is tachycardic with low blood pressure today abdomen is soft very mild tenderness on deep palpation, she was having a bowel movement, was sitting on bedside commode when entered the room She was saturating well on room air respiratory rate 15-18 I have given her Zofran, requested CT abdomen pelvis with contrast, Dr. 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 denying previous MA or history of coronary disease EF 20% as per previous echo Vitals/I&O/Wt Last Vital Signs Temp 97.1 F L 01/28/21 11:42 Pulse 104 H 01/28/21 11:42 Resp 18 01/28/21 11:42 BP 89/66 01/28/21 11:42 Pulse Ox 100 01/28/21 11:42 01/27/21 01/28/21 01/28/21 22:59 06:59 14:59 Intake Total 200 / 400 120 / 120 Balance 200 / 400 120 / 120 Physical Exam Narrative: EXAM NARRATIVE: Patient was sitting on bedside commode when entered the room was saturating well on room air did not complain of any active chest pain however was endorsing abdominal soreness noticed with mild tenderness on deep palpation in left lower quadrant bowel sound present S1, S2 with signs of fluid overload bilateral lower extremity/pedal edema stage III and IV ulcers of bilateral lower extremities 3+ pitting edema no acute respite distress saturating well on room air bilateral breath sounds however diminished no neurological deficit skin ulcers without acute decompensation on her face and upper extremities Data : 01/28/21 04:44 01/28/21 04:44 A&P Assessment and plan (1) Sepsis: Status: Acute (2) Hypotension: Status: Acute (3) Major depression, recurrent, chronic: Status: Acute (4) Tactile hallucinations: Status: Acute (5) Delirium: Status: Acute (6) Psychosis: Status: Acute (7) Diabetic wet gangrene of the foot: Status: Acute (8) Diabetes: Status: Acute (9) Non compliance w medication regimen: Status: Acute (10) Cardiomyopathy: Status: Acute Additional A&P Information Sepsis related to wet gangrene Sepsis resolved No leukocytosis she has stayed afebrile SHe is tachycardic, repeat lactic acid Currently on p.o. antibiotics as per culture and sensory report from the wound culture No bacteremia She has stayed hypotensive for last 72 hours, her Lasix was held, received gentle hydration overnight however blood pressure has not improved, my concern for cardiogenic shock because of her poor ejection fraction 20%, Requested serial troponin and EKG and cardiology consult Her TSH and cortisol level within normal range Added midodrine Albumin 3.1 will do a small bolus of 250 cc Diabetic foot ulcer/wet gangrene status post debridement on 01/[address] Mcdonnell Currently on p.o. antibiotics Will need extensive wound care follow-up Dressing being changed, hydrocolloid, zinc and bacitracin Psychosis delirium schizophrenia Appreciate psych recommendations, currently on SSRI and trazodone Type 2 diabetes: Euglycemic, Hemoglobin A1c 9 Will need insulin regimen on discharge Recurrent nausea and vomiting requested CT abdomen pelvis, serial troponin and EKG Cardiomyopathy EF 20%, no history of MA, Requested cardiology consultation This likely is related to her polysubstance abuse, Patient won't agree for life vest Full code Consistent carb diet DVT prophylaxis: Lovenox Disposition: [facility] Attestations Medical Necessity Statement*: Continue medical management, will need cardiology evaluation today requested CT abdomen serial troponin EKG Time Spent in Patient Care: 16 - 35 minutes Coding Level of Care Code Acute Shipwright Supervisor for g Fwd Diagnoses Sepsis A41.9 Hypotension I95.9 Major depression, recurrent, chronic F33.9 Tactile hallucinations R44.2 Delirium R41.0 Psychosis F29 Diabetic wet gangrene of the foot E11.52 Diabetes E11.9 Non compliance w medication regimen Z91.14 Cardiomyopathy I42.9
[2021-01-28] MEDS: iohexol 300 mg/mL 100 mL Btl IV (11:52)
[2021-01-28 12:59] LABS: Lactate (Lactic Acid level) 3.9 mmol/L (0.5-2.2)
[2021-01-28 13:11] LABS: Troponin(5th) Baseline 56 ng/L (0-10)
[2021-01-28] MEDS: sodium polystyrene sulfonate 15 gm/60 mL Btl PO (13:16)
[2021-01-28] MEDS: sodium chloride 0.9% 250 ML IV ×2 (13:17→17:31)
[2021-01-28] MEDS: midodrine 5 mg TABLET 10 MG PO ×2 (13:17→20:44)
--- NOTE | 2021-01-28 13:41 | ECG_ITS ---
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1970 Requested By: Vance Adams Order Number: [id number] Reading MD: VANCE AMARO Measurements Intervals [place] Rate: 99 P: 38 [place]: 133 QRS: 48 QRSD: 99 T: 160 QT: 368 QTc: 473 Interpretive Statements SINUS RHYTHM LOW QRS VOLTAGE IN EXTREMITY LEADS [QRS DEFLECTION < 0.5 mV IN LIMB LEADS] ANTEROSEPTAL MYOCARDIAL INFARCTION [40+ ms Q WAVE IN V1-V4], OF INDETERMINATE AGE Compared to ECG 01/28/2021 17:25:55 Sinus tachycardia no longer present Myocardial infarct finding still present Electronically Signed On 01-28-2021 21:23:57 CDT by VANCE AMARO [id number]
[2021-01-28 15:52] LABS: Troponin 5 2HR 55.64 ng/L (0-10)
[2021-01-28 15:55] LABS: Troponin 5 2HR Delta -0.36 ABS# (0-10)
--- NOTE | 2021-01-28 16:17 | PM.CONSULT ---
Providers/Reason For Consult Consulting Physician/Specialty*: Cardiology Reason for Consult*: Hypotension/cardiomyopathy/severely depressed LV function Attending Physician: Vance Adams MD Primary Care Provider: Arnie Napoles MD History of Present Illness History of Present Illness Bertha Tejada is a 50 year old female admitted for gangrenous foot and also treatment for the infection. She has past medical history significant for nonischemic cardiomyopathy most likely drug-related with history of marijuana use and psychotic disorders. During the treatment she was noted to be hypotensive it is the reason we have been asked to assist in her care. Patient currently denies any shortness of breath at rest PND orthopnea. She does not appear to be in decompensated state of heart failure. Her systolic blood pressure in 80s. According to her normally her blood pressure stays around 90 to 100 mmHg. She has bilateral lower extremity 1+ edema with gangrenous bilateral feet. Review of Systems General: Reports: 10 or more systems reviewed and unremarkable except in HPI and below Const: Reports: chills, body aches and fatigue; Denies: fever(s) Eyes: Denies: change in vision ENMT: Denies: throat pain Card: Denies: chest pain Resp: Denies: dyspnea GI: Denies: abdominal pain, nausea or vomiting : Reports: other (states she only urinates once a day); Denies: flank pain or dysuria Musc: Reports: extremity pain, extremity swelling, joint pain, joint swelling, joint warmth, joint stiffness and limited range of motion; Denies: neck pain Skin/Breast: Reports: rash, pruritus, erythema, skin pain, skin tenderness, skin swelling, new lesions, changing lesions, non-healing lesions, lesions and dry skin Neuro: Denies: headache(s), numbness in extremities, weakness in extremities or sensory changes Psych: Reports: anxiety, mood swings, irritability, difficulty concentrating, auditory hallucinations and tactile hallucinations Endo: Denies: polyuria Dawson/Lymph: Reports: easy bruising, easy bleeding, petechiae and purpura All/Imm: Denies: urticaria Meds/Allergies Home Medications and Allergies Home Medications Medication Instructions Recorded Confirmed Last Taken Type albuterol sulfate 1 inh INHALATION Q6H PRN #1 ea 11/20/20 01/20/21 Unknown Rx fluticasone 500 mcg-salmeterol 50 1 inh INHALATION BID 12/22/20 01/20/21 Unknown History mcg/dose blistr powdr for inhalation tiotropium bromide 18 mcg capsule 1 cap INHALATION DAILY 12/22/20 01/20/21 Unknown History with inhalation device trazodone 50 mg tablet 25 mg PO DAILY PRN #10 tab 12/22/20 01/20/21 Unknown Rx Lantus Solostar U-100 Insulin 4 unit SUBCUT QPM #15 ml 01/29/21 01/20/21 Unknown Rx Tylenol Extra Strength 500 mg PO PRN #0 tab 01/29/21 01/20/21 Unknown Rx aspirin 81 mg PO DAILY #30 tab 01/29/21 Unknown Rx atorvastatin 20 mg PO DAILY #20 tab 01/29/21 Unknown Rx bacitracin 1 applic TOPICAL TID #1728 ea 01/29/21 Unknown Rx blood-glucose meter [Accu-Chek #1 ea 01/29/21 Unknown Rx Comfort Plus Meter] furosemide 20 mg PO Q72H #20 tab 01/29/21 01/20/21 Unknown Rx insulin aspart U-100 [Novolog See Rx Instructions .ROUTE 01/29/21 Unknown Rx U-100 Insulin aspart] .COMPLEX 30 Days #10 ml NS lancets-blood glucose strips #50 ea 01/29/21 Unknown Rx levofloxacin 750 mg PO Q48H 60 Days #30 tab 01/29/21 Unknown Rx midodrine 10 mg PO TID 30 Days #180 tab 01/29/21 Unknown Rx oxycodone 5 mg PO Q6H PRN #10 tab 01/29/21 Unknown Rx sennosides-docusate sodium [Stool 1 tab PO DAILY #30 tab 01/29/21 Unknown Rx Softener-Laxative] sertraline 50 mg PO DAILY 30 Days #30 tab 01/29/21 Unknown Rx trazodone 100 mg PO BEDTIME 30 Days #30 tab 01/29/21 Unknown Rx Allergies Allergy/AdvReac Type Severity Reaction Status Date / Time bupropion [From Wellbutrin] Allergy Unknown Verified 01/19/21 21:18 mushroom Allergy ALGY-Hives Verified 01/28/21 10:52 Penicillins Allergy ALGY-Hives Verified 01/19/21 21:18 Sulfa (Sulfonamide Allergy ALGY-Hives Verified 01/19/21 21:18 Antibiotics) tomato Allergy ALGY-Hives Verified 01/28/21 10:52 zolpidem [From Ambien] Allergy Unknown Verified 01/19/21 21:18 honeydew Allergy ALGY-Hives Uncoded 01/28/21 10:52 Current Medications Current Medications Generic Name Dose Route Start Last Admin Trade Name Freq PRN Reason Stop Dose Admin Acetaminophen 500 mg 01/20/21 03:26 01/27/21 00:13 Acetaminophen 500 Mg Tablet PO 500 mg Q4H PRN Administration fever Albuterol/Ipratropium 3 ml 01/20/21 03:26 01/21/21 03:55 Ipratropium-Albuterol 3 Ml Neb INHALATION 3 ml Q6H PRN Administration SHORTNESS OF BREATH Bacitracin 1 each 01/21/21 15:00 01/28/21 15:31 Bacitracin Ointment Pkt TOPICAL 1 each TID MATTHEW Administration Protocol Bumetanide 1 mg 01/20/21 09:00 01/25/21 08:47 Bumetanide 1 Mg Tablet PO 1 mg DAILY MATTHEW Administration Ciprofloxacin HCl 500 mg 01/25/21 21:00 01/28/21 08:23 Ciprofloxacin 500 Mg Tablet PO 500 mg BID@0900,2100 MATTHEW Administration Protocol Enoxaparin Sodium 40 mg 01/25/21 16:30 01/27/21 17:13 Enoxaparin 40 Mg/0.4 Ml Syringe SUBCUT 40 mg Q24H MATTHEW Administration Insulin Aspart 0 unit 01/20/21 21:00 01/28/21 13:01 Insulin Aspart 100 Unit/1 Ml SUBCUT Not Given WM&BEDTIME MATTHEW Protocol Midodrine 10 mg 01/28/21 11:45 01/28/21 14:58 Midodrine 5 Mg Tablet PO Not Given TID MATTHEW Ondansetron HCl 4 mg 01/20/21 03:26 01/28/21 09:17 Ondansetron 2 Mg/Ml Sdv 2 Ml IVP 4 mg Q6H PRN Administration NAUSEA AND VOMITING Senna/Docusate Sodium 1 tab 01/20/21 09:00 01/28/21 08:23 Sennosides-Docusate Tablet PO 1 tab DAILY MATTHEW Administration Sertraline HCl 50 mg 01/27/21 14:15 01/28/21 08:23 Sertraline 50 Mg Tablet PO 50 mg DAILY MATTHEW Administration Trazodone HCl 100 mg 01/27/21 21:00 01/27/21 21:11 Trazodone 100 Mg Tablet PO 100 mg BEDTIME MATTHEW Administration PFSH Acute PFSH: Medical History Depression Diabetes Marijuana abuse OCD (obsessive compulsive disorder) PTSD (post-traumatic stress disorder) Seizure Suicide and self-inflicted injury Surgical History H/O: hysterectomy Family History Other CAD (coronary artery disease) Diabetes Social History Smoking and tobacco status: former smoker Alcohol intake: never Lives independently: Yes Housing: House Vitals/I&O/Wt Last Vital Signs Temp 97.2 F L 01/28/21 15:35 Pulse 98 01/28/21 15:35 Resp 16 01/28/21 15:35 BP 92/68 01/28/21 15:35 Pulse Ox 93 01/28/21 15:35 01/28/21 01/28/21 01/28/21 06:59 14:59 22:59 Intake Total 610 / 610 Balance 610 / 610 Physical Exam Narrative: EXAM NARRATIVE: GENERAL: Patient is alert, awake and oriented x3. NECK: No jugular vein distension. HEENT: No cyanosis. No icterus. No pallor. HEART: Regular S1 and S2. No murmur, rub or gallop. LUNGS: Clear to auscultate bilaterally. ABDOMEN: Soft, nontender and distended. Positive bowel sounds. No guarding, rebound or tenderness. CENTRAL NERVOUS SYSTEM: Grossly nonfocal. EXTREMITIES: Lower extremities with 1+ edema bilaterally. Both feet are wrapped A&P Assessment and plan (1) Hypotension: Most likely due to dilated cardiomyopathy with severely depressed ejection fraction. Patient also appeared to be dehydrated. We recommend not diuresing and giving her back some volume. Advised total of 500 mL of bolus followed by 100 mL per next 500. Will reassess patient after that. Status: Acute Qualifiers: Hypotension type: unspecified hypotension type Qualified Code(s): I95.9 - Hypotension, unspecified (2) Cardiomyopathy: Nonischemic cardiomyopathy. With severely depressed ejection fraction. Advised LifeVest for primary prevention and ICD placement. Since patient has history of drug abuse she may need to be screened before proceeding with ICD Status: Acute Qualifiers: Cardiomyopathy type: dilated Qualified Code(s): I42.0 - Dilated cardiomyopathy (3) CHF (congestive heart failure): Appear to be well compensated. Continue current regimen Status: Acute Qualifiers: Heart failure chronicity: chronic Heart failure type: systolic Qualified Code(s): I50.22 - Chronic systolic (congestive) heart failure Consult Attestations Medical Necessity Statement: Require continuation hospitalization for above defined care. Coding Level of Care Code New Pt Acute Block Bolter Mule Operator for Chg Fwd Patient Type New Medical Decision Making Moderate Complexity Diagnoses Hypotension I95.9 Hypotension type: unspecified hypotension type Cardiomyopathy I42.0 Cardiomyopathy type: dilated CHF (congestive heart failure) I50.22 Heart failure chronicity: chronic Heart failure type: systolic
--- NOTE | 2021-01-28 16:36 | PM.NPN ---
Subjective NPU Subjective: Interval history: Bertha presents today with a significant other at bedside reporting patient tolerating the medication well. Reports that she slept. Good last night and also reports a better mood and denied any significant psychotic elements. She reports that the plan is for her to discharge tomorrow and is looking forward to that. Mental Status Exam MSE Comments: This is a well-nourished, well-developed white female absent dentition with hospital gown with limited grooming]. Vital medical for psychomotor retardation. Cooperative with exam no acute distress. Speech was slight decreased rate and volume. Mood described as much better, affect euthymic calm. Thought process organized. Thought content: Patient suicidal or homicidal ideation, there were no delusions reported or noted, she denied any auditory or visual hallucinations. Attention concentration appeared intact and memory appeared reliable but none were formally tested. She is oriented x3. Insight and judgment appear fair and impulse control appears fair. Vitals/I&O/Wt Last Vital Signs Temp 97.2 F L 01/28/21 15:35 Pulse 98 01/28/21 15:35 Resp 16 01/28/21 15:35 BP 92/68 01/28/21 15:35 Pulse Ox 93 01/28/21 15:35 01/28/21 14:59 Intake Total 610 / 610 Balance 610 / 610 Data NPU : 01/29/21 05:38 01/29/21 05:38 A&P Additional A&P Information (1) Tactile hallucinations: (2) Psychosis: (3) Skin rash: (4) CHF (congestive heart failure): (5) Major depression, recurrent, chronic: Additional A&P Information The patient has psychotic symptoms which have been present for at least 5 years. The picture is complicated because she has also been an intermittent user of methamphetamine and has had major depression at times too. She could have depression with psychotic features, meth induced psychosis, or a primary psychotic disorder, like schizophrenia. The recommended treatment is an antipsychotic, however the patient does not want to take 1 at this time. We can treat the depression, and if it is causing or exacerbating the psychosis, then we would expect it to get better. In any case her depression will be better. Started Zoloft 50 mg daily for depression and trazodone 100 mg at bedtime for depression related insomnia. The patient has taken both medications in the past. 1. Continue current medication. 2. We will sign off. Attestations NPU Medical Necessity Statement*: The hospitalist will provide the medical necessity attestation. No need for any intensive or inpatient psychiatric services at this time. Coding Level of Care Code Acute Marriage And Family Social Worker for Ruth Denise
[2021-01-28 16:38] LABS: Glucose Point of Care 82 mg/dL (70-110)
[2021-01-28] MEDS: enoxaparin 40 mg/0.4 mL Syringe SUBCUT (17:18)
[2021-01-28] MEDS: acetaminophen 500 mg Tablet PO (19:45)
[2021-01-28 19:46] LABS: Troponin 5 6HR 55.98 ng/L (0-10)
[2021-01-28 19:57] LABS: Troponin 5 6HR Delta -0.02 ng/L (0-12)
[2021-01-28 20:36] LABS: Glucose Point of Care 78 mg/dL (70-110)
[2021-01-28] MEDS: albumin 12.5 GM/250 ML VIAL IV (20:43)
[2021-01-28] MEDS: trazodone 100 mg Tablet PO (20:44)
[2021-01-28] MEDS: insulin glargine 100 units/1 mL 6 UNIT SUBCUT (20:44)
[2021-01-28] MEDS: oxyCODONE 5 mg IR Tab/Cap PO (22:41)
[2021-01-29] VITALS (8 sets, daily range): BP systolic 74–99; BP diastolic 55–70; PULSE 86–114; RESP 16–20; TEMP 36.1–36.7; O2SAT 91–98
[2021-01-29 06:40] LABS: Glucose Point of Care 52 mg/dL (70-110)
[2021-01-29 06:40] LABS: Glucose Point of Care 48 mg/dL (70-110)
[2021-01-29 06:52] LABS: Basophils # 0.1 10^3/uL (0.0-0.1); Basophils % 0.8 %; Eosinophils # 0.1 10^3/uL (0.0-0.8); Eosinophils % 1.3 %; Hematocrit 40.2 % (37.0-47.0); Hemoglobin 12.7 g/dL (11.5-15.3); Lymphocytes # 1.2 10^3/uL (0.8-4.8); Lymphocytes % 15.4 %; Mean Corpuscular HGB Conc 31.6 g/dL (30.0-36.0); Mean Corpuscular Hemoglobin 26.4 pg (28.0-34.0); Mean Corpuscular Volume 83.6 fL (81-99); Monocytes # 0.3 10^3/uL (0.2-0.9); Monocytes % 4.5 %; Neutrophils # 5.91 10^3/uL (1.8-7.7); Neutrophils % 77.6 %; Nucleated Red Blood Cells % 0 %; Platelet Count 173 10^3/cmm (130-400); Red Blood Count 4.81 10^6/uL (4.1-5.3); Red Cell Distribution Width 21.8 % (12.1-15.1); White Blood Count 7.6 10^3/uL (4.0-10.0)
[2021-01-29 07:09] LABS: Glucose Point of Care 75 mg/dL (70-110)
[2021-01-29 07:24] LABS: Blood Urea Nitrogen 22 mg/dL (6-20); C Reactive Protein 28.9 mg/L (0.0-4.9); Calcium 7.3 mg/dL (8.5-10.5); Carbon Dioxide 24 mmol/L (22-29); Chloride 97 mmol/L (98-107); Glomerular Filtration Rate 105.4 mL/min (90-130); Osmolality Calculated 276 mOsm/kg (285-295); Sodium 133 mmol/L (136-145)
[2021-01-29 07:33] LABS: Anion Gap 16.7 (5-19); Glucose 30 mg/dL (65-115); Potassium 4.7 mmol/L (3.5-5.1)
[2021-01-29] MEDS: sodium chloride 0.9% 250 ML IV (08:51)
--- NOTE | 2021-01-29 08:51 | PC.NUTR ---
Nutrition follow up: Glucerna previously discontinued per pt preference. Recommend to provide meal preferences and encourage po intakes to optimize nutrition. Pt with CHF and DM (HgbA1C 9.7), however may benefit from lessening of diet restrictions given poor intakes and multiple episodes of hypoglycemia. See full RD assessment for further details.
[2021-01-29] MEDS: ciprofloxacin 500 mg Tablet PO (08:52)
[2021-01-29] MEDS: midodrine 5 mg TABLET 10 MG PO ×2 (08:53→16:44)
[2021-01-29] MEDS: sennosides-docusate Tablet 1 TAB PO (08:53)
[2021-01-29] MEDS: sertraline 50 mg Tablet PO (08:53)
[2021-01-29] MEDS: bacitracin ointment Pkt 1 EACH TOPICAL ×2 (08:53→16:46)
[2021-01-29 10:38] LABS: Glucose Point of Care 103 mg/dL (70-110)
[2021-01-29] MEDS: oxyCODONE 5 mg IR Tab/Cap PO (11:18)
[2021-01-29 12:42] LABS: SARS Covid-2 Antigen Negative (Negative)
--- NOTE | 2021-01-29 15:18 | PM.PN ---
Subjective Subjective: Interval history: Overall feeling better. Blood pressure is back to baseline of her normal. Medications: Reviewed: Yes Vitals/I&O/Wt Last Vital Signs Temp 98.0 F 01/29/21 11:24 Pulse 110 H 01/29/21 11:24 Resp 20 H 01/29/21 11:24 BP 99/70 01/29/21 11:24 Pulse Ox 98 01/29/21 11:24 01/29/21 01/29/21 01/29/21 06:59 14:59 22:59 Intake Total 850 / 850 Balance 850 / 850 Physical Exam Narrative: EXAM NARRATIVE: GENERAL: Patient is alert, awake and oriented x3. NECK: No jugular vein distension. HEENT: No cyanosis. No icterus. No pallor. HEART: Regular S1 and S2. No murmur, rub or gallop. LUNGS: Clear to auscultate bilaterally. ABDOMEN: Soft, nontender and distended. Positive bowel sounds. No guarding, rebound or tenderness. CENTRAL NERVOUS SYSTEM: Grossly nonfocal. EXTREMITIES: Lower extremities with 1+ edema bilaterally. Both feet are wrapped Data : 01/29/21 05:38 01/29/21 05:38 A&P Assessment and plan (1) Hypotension: Most likely due to dilated cardiomyopathy with severely depressed ejection fraction. Patient also appeared to be dehydrated. We recommend not diuresing and giving her back some volume. Advised total of 500 mL of bolus followed by 100 mL per next 500. Will reassess patient after that. We will try to optimize her medicine. I will start her on low-dose metoprolol reason behind not putting her on carvedilol is patient does not have good blood pressure to withstand alpha blocking activity of carvedilol. We will start her on one fourth of metoprolol this is 6.25mg twice daily. Status: Acute Qualifiers: Hypotension type: unspecified hypotension type Qualified Code(s): I95.9 - Hypotension, unspecified (2) Cardiomyopathy: Patient has severely depressed ejection fraction less than 35%. For primary prevention she may need ICD however due to her ongoing current infection history of IV drug abuse may not be a good candidate for ICD for now. LifeVest has been discussed with the patient we may recommend LifeVest until she clears the infection and can consider ICD if she is free from IV drug. Status: Acute Qualifiers: Cardiomyopathy type: dilated Qualified Code(s): I42.0 - Dilated cardiomyopathy (3) CHF (congestive heart failure): Appear to be well compensated. Continue current regimen, Status: Acute Qualifiers: Heart failure chronicity: chronic Heart failure type: systolic Qualified Code(s): I50.22 - Chronic systolic (congestive) heart failure Attestations Medical Necessity Statement*: From a cardiac perspective patient can be discharged home Coding Level of Care Code Established Pt Acute Automotive Dismantler for g Fwd Patient Type Established History Detailed Exam Detailed Medical Decision Making Moderate Complexity Diagnoses Hypotension I95.9 Hypotension type: unspecified hypotension type Cardiomyopathy I42.0 Cardiomyopathy type: dilated CHF (congestive heart failure) I50.22 Heart failure chronicity: chronic Heart failure type: systolic
[2021-01-29 16:14] LABS: Digoxin 0.3 ng/mL (0.6-1.2)
[2021-01-29] MEDS: digoxin 125 mcg Tablet PO (16:44)
[2021-01-29 17:06] LABS: Glucose Point of Care 72 mg/dL (70-110)
--- NOTE | 2021-01-29 17:59 | PM.DCS ---
Discharge Providers Date of Admission: 01/20/21 03:26 Date of Discharge: January 29, 2021 Attending Provider at Admission: Vance Adams MD Attending Provider at Discharge: Vance Adams MD Primary Care Provider: Arnie Napoles MD Diagnoses at Discharge Discharge Diagnosis (1) Hypotension: Status: Acute Qualifiers: Hypotension type: unspecified hypotension type Qualified Code(s): I95.9 - Hypotension, unspecified (2) Cardiomyopathy: Status: Acute Qualifiers: Cardiomyopathy type: dilated Qualified Code(s): I42.0 - Dilated cardiomyopathy (3) CHF (congestive heart failure): Status: Acute Qualifiers: Heart failure chronicity: chronic Heart failure type: systolic Qualified Code(s): I50.22 - Chronic systolic (congestive) heart failure Reason for Visit Reason for Visit: foot issues Hospital Course Hospital Course HPI Bertha Tejada is a 50 year old female who was recently admitted for management of hyperglycemia, CHF exacerbation, presented today with chief complaint of worsening ulcers of her foot bilaterally. Patient keeps changing her story depending on the provider. She is stating that about 4 to 6 weeks ago she noticed that to snakes, rattlesnake and cottonmouth were wrapped around her legs and mating, she is not sure if she had any snakebite at that time but stating that she secretly received antivenom by her cousin who works in . She is also stating that she is supposed to take scorpion and bee sting treatment because of her PTSD. She has not been taking insulin or any other medications at home. Her foot wound started with a blister and she has taken pictures on her phone, blister gradually got worse and now she has open wounds with purulent drainage hyperemia and edema extending all the way up to her thighs. She is denying fever, chest pain, shortness of breath, nausea, vomiting. She has multiple skin ulcers and seems to be secondary to habitual picking on her skin. Diagnostics in the ER revealed sepsis she received broad-spectrum antibiotics, clinically looks fluid overloaded Requested CT of her foot with contrast to rule out necrotizing fasciitis, ESR 19 high lactic acid hemoglobin A1c 9.7 Hospital course Patient was admitted for management of sepsis related to wet gangrene/diabetic foot ulcer bilaterally, she underwent debridement by Dr. Mcdonnell on 01/25, she was getting frequent wound dressing with hydrocolloid and zinc, for culture and sensitivity report was reviewed which showed polymicrobial infection however sensitive to p.o. antibiotics, her broad-spectrum antibiotics were deescalated to ciprofloxacin. She remained afebrile, leukocytosis improved however blood pressure stays in 90s to 100 mmHg. Secondary to reduce ejection fraction heart failure cardiology was consulted who recommended medical management for now. Considering her history of polysubstance abuse and noncompliance her reduced action fraction cardiomyopathy is related to nonischemic nature. On the day of discharge cardiology started digoxin and low-dose metoprolol, aspirin and statins. Patient received albumin secondary to persistent hypotension which did not help her blood pressure at all. This was discussed with Dr. You who thinks this is secondary to severe dilated cardiomyopathy and her usual systolic blood pressure new normal with to be between 90 to 100 mmHg. Psych was consulted for her delusional disorder, she does have presentation of schizophrenia, antipsychotics were prescribed however patient refused and she was treated for her depression with Zoloft and trazodone. She is being discharged to [facility] with wound care referral. She also has poorly controlled type 2 diabetes hemoglobin A1c of 9 she was put on Lantus 10 units however secondary to poor p.o. intake and recurrent nausea vomiting her sugar stays low I reduced her Lantus dose to 4 units, and discharge her on moderate sliding scale. There was no signs of DVT on venous Dopplers, arterial duplex did not show any arterial ischemia. Patient refused LifeVest Micro wound specimen showed Enterobacter, Proteus, Staph aureus, Klebsiella sensitive to multiple p.o. antimicrobial CT abdomen pelvis was obtained secondary to her recurrent nausea and vomiting IMPRESSION: 1. Marked diffuse body wall anasarca with mesenteric edema. Small amount of fluid in the pelvis 2. Normal bilateral renal parenchymal enhancement. No hydronephrosis. Small right renal cyst measuring 13 mm. 3. Diffuse fatty infiltration of the liver. 4. Normal caliber abdominal aorta. 5. Mild sigmoid constipation. 6. No evidence of small or large bowel obstruction. Small amount of fluid in the stomach which is otherwise decompressed. Physical Exam Narrative: EXAM NARRATIVE: was saturating well on room air did not complain of any active chest pain however was endorsing abdominal soreness noticed with mild tenderness on deep palpation in left lower quadrant bowel sound present S1, S2 with signs of fluid overload bilateral lower extremity/pedal edema stage III and IV ulcers of bilateral lower extremities 3+ pitting edema no acute respite distress saturating well on room air bilateral breath sounds however diminished no neurological deficit skin ulcers without acute decompensation on her face and upper extremities Discharge Data Data Completed and Pending: Completed Studies During Hospitalization Category Date Time Status CT abdomen pelvis w con* [id number] Stat Cat Scan 01/28/21 09:[address] lower leg LT w con [id number] Routine Cat Scan 01/20/21 02:[address] lower leg RT w con [id number] Routine Cat Scan 01/20/21 02:21 Completed Pathology: Surgic al [PTH] Routine Pth 01/22/21 17:15 [place] [id number] Rout ine Ultrasound 01/20/21 03:26 [place] [id number] Routin e Ultrasound 01/20/21 03:26 Completed Labs from last 24 hours 01/29/21 01/29/21 01/29/21 16:41 11:36 10:27 WBC RBC Hgb Hct MCV MCH MCHC RDW Plt Count MPV Neut % (Auto) Lymph % (Auto) [place] % (Auto) Eos % (Auto) Baso % (Auto) Neut # (Auto) Lymph # (Auto) [place] # (Auto) Eos # (Auto) Baso # (Auto) Nucleated RBC % (a uto) Nucleated RBCs # Sodium Potassium Chloride Carbon Dioxide Anion Gap BUN Creatinine GFR Calculation Glucose POC Glucose 72 103 Calculated Osmolal ity Lactate Calcium Troponin T Hi Sens 6Hr Troponin T Hi Sens 6Hr Delta C-Reactive Protein Digoxin SARS-CoV-2 Ag (Rap id) Negative 01/29/21 01/29/21 01/29/21 08:11 06:55 06:27 WBC RBC Hgb Hct MCV MCH MCHC RDW Plt Count MPV Neut % (Auto) Lymph % (Auto) [place] % (Auto) Eos % (Auto) Baso % (Auto) Neut # (Auto) Lymph # (Auto) [place] # (Auto) Eos # (Auto) Baso # (Auto) Nucleated RBC % (a uto) Nucleated RBCs # Sodium Potassium Chloride Carbon Dioxide Anion Gap BUN Creatinine GFR Calculation Glucose POC Glucose 75 52 L Calculated Osmolal ity Lactate 2.0 Calcium Troponin T Hi Sens 6Hr Troponin T Hi Sens 6Hr Delta C-Reactive Protein Digoxin SARS-CoV-2 Ag (Rap id) 01/29/21 01/29/21 01/29/21 06:26 05:38 05:38 WBC 7.6 RBC 4.81 Hgb 12.7 Hct 40.2 MCV 83.6 MCH 26.4 L MCHC 31.6 RDW 21.8 H Plt Count 173 MPV 11.0 H Neut % (Auto) 77.6 Lymph % (Auto) 15.4 [place] % (Auto) 4.5 Eos % (Auto) 1.3 Baso % (Auto) 0.8 Neut # (Auto) 5.91 Lymph # (Auto) 1.2 [place] # (Auto) 0.3 Eos # (Auto) 0.1 Baso # (Auto) 0.1 Nucleated RBC % (a uto) 0 Nucleated RBCs # 0.0 Sodium Potassium Chloride Carbon Dioxide Anion Gap BUN Creatinine GFR Calculation Glucose POC Glucose 48 L Calculated Osmolal ity Lactate Calcium Troponin T Hi Sens 6Hr Troponin T Hi Sens 6Hr Delta C-Reactive Protein Digoxin 0.3 L SARS-CoV-2 Ag (Rap id) 01/29/21 01/28/21 01/28/21 05:38 20:30 18:29 WBC RBC Hgb Hct MCV MCH MCHC RDW Plt Count MPV Neut % (Auto) Lymph % (Auto) [place] % (Auto) Eos % (Auto) Baso % (Auto) Neut # (Auto) Lymph # (Auto) [place] # (Auto) Eos # (Auto) Baso # (Auto) Nucleated RBC % (a uto) Nucleated RBCs # Sodium 133 L Potassium 4.7 Chloride 97 L Carbon Dioxide 24 Anion Gap 16.7 BUN 22 H Creatinine 0.6 GFR Calculation 105.4 Glucose 30 L* POC Glucose 78 Calculated Osmolal ity 276 L Lactate Calcium 7.3 L Troponin T Hi Sens 6Hr 55.98 H Troponin T Hi Sens 6Hr Delta -0.02 L C-Reactive Protein 28.9 H Digoxin SARS-CoV-2 Ag (Rap id) Vitals: Last Vital Signs Temp 97.3 F L 01/29/21 16:00 Pulse 105 H 01/29/21 16:44 Resp 16 01/29/21 16:00 BP 88/67 01/29/21 16:00 Pulse Ox 93 01/29/21 16:00 Discharge Plan Discharge Patient Disposition: Xfer SNF Condition: Stable Prescriptions: New Stool Softener-Laxative 8.6-50 mg Tablet 1 tab PO DAILY Qty: 30 RF: 0 midodrine 5 mg Tablet 10 mg PO TID 30 Days Qty: 180 RF: 0 trazodone 100 mg Tablet 100 mg PO BEDTIME 30 Days Qty: 30 RF: 0 sertraline 50 mg Tablet 50 mg PO DAILY 30 Days Qty: 30 RF: 0 oxycodone 5 mg Tablet 5 mg PO Q6H PRN (Reason: Moderate Pain) Qty: 10 RF: 0 bacitracin 500 unit/gram Packet 1 applic topical TID Qty: 1728 RF: 0 levofloxacin 750 mg tablet 750 mg PO Q48H 60 Days Qty: 30 RF: 0 Novolog U-100 Insulin aspart 100 unit/mL Solution See Rx Instructions .ROUTE .COMPLEX 30 Days Qty: 10 RF: 1 (DME) lancets-blood glucose strips 30 gauge combo pack See Rx Instructions .Route Qty: 50 RF: 0 (DME) Accu-Chek Comfort Plus Meter Misc See Rx Instructions .Route Qty: 1 RF: 0 aspirin 81 mg tablet,delayed release (DR/EC) 81 mg PO DAILY Qty: 30 RF: 0 atorvastatin 20 mg tablet 20 mg PO DAILY Qty: 20 RF: 0 digoxin 125 mcg (0.125 mg) tablet 62.5 mcg PO DAILY Qty: 30 RF: 3 metoprolol succinate 25 mg tablet extended release 24 hr 12.5 mg PO DAILY Qty: 30 RF: 4 Continued fluticasone propion-salmeterol [Advair Diskus] 500-50 mcg/dose blister with device 1 inh inhalation BID RF: 0 Spiriva with HandiHaler 18 mcg capsule, w/inhalation device 1 cap inhalation DAILY RF: 0 trazodone 50 mg tablet 25 mg PO DAILY PRN (Reason: insomnia) Qty: 10 RF: 0 albuterol sulfate 90 mcg/actuation aerosol powdr breath activated 1 inh inhalation Q6H PRN (Reason: shortness of breath) Qty: 1 RF: 0 Changed Tylenol Extra Strength 500 mg Tablet 500 mg PO PRN Qty: 0 RF: 0 furosemide 20 mg tablet 20 mg PO Q72H Qty: 20 RF: 0 Lantus Solostar U-100 Insulin 100 unit/mL (3 mL) insulin pen 4 unit SUBCUT QPM Qty: 15 RF: 0 Discontinued ibuprofen 200 mg Tablet 600 mg PO PRN RF: 0 metformin 500 mg tablet 500 mg PO BID RF: 0 Discharge Orders: Discharge Order (Routine); Ordered 01/29/21 Ordered By: Vance Adams Other Ambulatory Orders: Digoxin (Routine) Timeframe: 3 Days Facility: [facility] - Location: Lab - Main Lab Ordered By: Vance Adams Referrals: Arnie Napoles MD [Primary Care Provider] - Virginie Woodard [Inspector Water Pollution Control] - (Please call Virginie and start process to establish services with [facility]. .) Vance You MD [Physician] - 02/16/21 1:30 pm WOUND CARE CLINIC, [Staff Physician] - 02/02/21 1:30 pm Discharge Diet: Diabetic and Soft Mechanical Discharge Activity: Wheelchair as instructed Patient Instructions: Diabetes and Diet, Congestive Heart Failure, Diabetic Foot Care (GEN), Diabetic Hypoglycemia (DC), Acute Wound Care (DC), Chronic Wound Care (DC) Activity Restrictions/Additional Instructions: Insulin mod sliding scale 141-180 4 units 4 units/SQ 181-220 mg/dl 6 units/SQ 221-260 mg/dl 8 units/SQ 261-300 mg/dl 10 units/SQ 301-350 mg/dl 12 units/SQ 351-400 mg/dl 14 units/SQ greater than 400 mg/dl Keep taking Levaquin on every other day for next 2 months Very important to have wound care and follow-up with wound care clinic for possible debridement You are at risk of osteomyelitis and losing her foot Your blood pressure will stay soft with 90-100 range because of severely reduced action fraction of 20% In case of worsening of lower extremity edema you can take Lasix on as-needed basis but do not take on daily basis due to low blood pressure+ Check digoxin level in 3 days and then monthly Discharge Attestations Time Spent in Discharge Care*: less than 30 min Quality Metrics Clinical Quality Measures During this hospital stay, did patient experience: None Coding Level of Care Code Acute Chg FW DC note Diagnoses Hypotension I95.9 Hypotension type: unspecified hypotension type Cardiomyopathy I42.0 Cardiomyopathy type: dilated CHF (congestive heart failure) I50.22 Heart failure chronicity: chronic Heart failure type: systolic
== END 2021-01-29 17:48 | disposition skilled nursing facility (03) | DRG 853 ==
LOC: ER 01-20 00:41 → ER IP 01-20 02:08 → MEDSURG 01-20 13:11
PROVIDERS: Internal Medicine; Internal Medicine Cardiovascular Disease; Surgery; Admitting Provider Internal Medicine; Emergency Provider Physician Assistant; PCP Family Medicine Adult Medicine; Visit Provider Internal Medicine
DX: A41.9 Sepsis, unspecified organism (principal); L89.893 Pressure ulcer of other site, stage 3; E11.52 Type 2 diabetes mellitus with diabetic peripheral angiopathy with gangrene; I96 Gangrene, not elsewhere classified; L03.116 Cellulitis of left lower limb; L03.115 Cellulitis of right lower limb; F33.9 Major depressive disorder, recurrent, unspecified; F20.89 Other schizophrenia; I42.0 Dilated cardiomyopathy; I50.22 Chronic systolic (congestive) heart failure; Z20.822 Contact with and (suspected) exposure to COVID-19; E11.621 Type 2 diabetes mellitus with foot ulcer; F29 Unspecified psychosis not due to a substance or known physiological condition; E11.65 Type 2 diabetes mellitus with hyperglycemia; F43.10 Post-traumatic stress disorder, unspecified; F42.9 Obsessive-compulsive disorder, unspecified; E87.6 Hypokalemia; F15.90 Other stimulant use, unspecified, uncomplicated; L89.522 Pressure ulcer of left ankle, stage 2; K59.00 Constipation, unspecified; F12.11 Cannabis abuse, in remission; R35.8 Other polyuria; R21 Rash and other nonspecific skin eruption; G47.00 Insomnia, unspecified; Z79.4 Long term (current) use of insulin; Z75.1 Person awaiting admission to adequate facility elsewhere; Z82.49 Family history of ischemic heart disease and other diseases of the circulatory system; Z83.3 Family history of diabetes mellitus; Z87.891 Personal history of nicotine dependence; Z79.82 Long term (current) use of aspirin; Z88.0 Allergy status to penicillin; Z88.2 Allergy status to sulfonamides
CPT/HCPCS: 36415; 36416; 73701; 74177; 80048; 80053; 80162; 80202; 80306; 81001; 82533; 82962; 83036; 83605; 83880; 84484; 85025; 85378; 85651; 86140; 87040; 87070; 87077; 87176; 87186; 87205; 87426; 88304; 93005; 93925; 93970; 94640; 96365; 96367; 96372; 96375; 99285; C9113; J0610; J0743; J1170; J1650; J1815 ×2; J2270; J2405; J2704; J3010; J3370; J3480; J3490; J7030; J7050; P9041; Q9967

== ENCOUNTER → 2021-03-23 15:06 | Outpatient (BNVA) | payer MEDICAID, SELFPAY | PROVIDERS: PCP Pediatrics; Visit Provider Nurse Practitioner Family | DX: I42.0 Dilated cardiomyopathy (principal) | CPT/HCPCS: 80048; 80162 ==

== ENCOUNTER → 2021-10-05 10:06 | Outpatient (BNVA) | payer MEDICAID, SELFPAY | PROVIDERS: PCP Pediatrics; Visit Provider Internal Medicine Cardiovascular Disease | DX: I42.0 Dilated cardiomyopathy (principal); E11.9 Type 2 diabetes mellitus without complications; G47.30 Sleep apnea, unspecified; J44.9 Chronic obstructive pulmonary disease, unspecified; I95.9 Hypotension, unspecified; F32.A Depression, unspecified; F17.210 Nicotine dependence, cigarettes, uncomplicated; Z79.82 Long term (current) use of aspirin; Z79.4 Long term (current) use of insulin; I42.9 Cardiomyopathy, unspecified | CPT/HCPCS: 36415; 80053; 83735; 83880; 85025; 99214 ==

== ENCOUNTER 2021-10-19 13:40 | Outpatient (CLI) | payer MEDICAID, SELFPAY ==
--- NOTE | 2021-10-19 14:00 | USCV_ITS ---
Bertha Tejada Age: 51 Gender: F : 1970 Exam Date: 10/19/2021 14:30 Ordering Phys: Phuong Ward MD ([email or web address]) Technologist: Exam Location: [facility] Indication: Chest pain BP: 100 / 56 HR: 77 Rhythm: Sinus Technical Quality: Adequate MEASUREMENTS (Male / Female) Normal Values 2D ECHO LV Diastolic Diameter PLAX 6.0 cm 4.2 - 5.9 / 3.9 - 5.3 cm LV Systolic Diameter PLAX 4.8 cm IVS Diastolic Thickness 1.1 cm 0.6 - 1.0 / 0.6 - 0.9 cm IVS Systolic Thickness 0.9 cm LVPW Diastolic Thickness 1.0 cm 0.6 - 1.0 / 0.6 - 0.9 cm LVPW Systolic Thickness 0.9 cm LVOT Diameter 2.0 cm LV Ejection Fraction 2D Teich 39.6 % LV Ejection Fraction MOD 2C 41.8 % LV Ejection Fraction 2C AL 38.9 % LA Diameter 4.1 cm Aorta at Sinotubular Diameter 2.5 cm M-MODE Aortic Annulus Diameter 3.3 cm LA Ao Ratio MM 1.1 MV E Point Septal Separation 1.2 cm DOPPLER AV Peak Velocity 126.0 cm/s LVOT Peak Velocity 96.0 cm/s AV Area Cont Eq vti 2.3 cm squared AV Area Cont Eq pk 2.5 cm squared MV Area PHT 5.0 cm squared Mitral E to A Ratio 0.6 MV E' Velocity 29.0 cm/s Mitral E to MV E' Ratio 9.2 Mitral E to LV E' Lateral Ratio 9.7 Mitral E to LV E' Septal Ratio 8.8 TR Peak Velocity 160.7 cm/s TR Peak Gradient 10.3 mmHg TV Peak E Velocity 67.0 cm/s Right Atrial Pressure 3.0 mmHg Pulmonary Artery Systolic Pressu 13.3 mmHg PV Peak Velocity 98.0 cm/s FINDINGS Left Ventricle Moderately dilated left ventricle cavity. Severely decreased left ventricular systolic function. Left ventricular ejection fraction is estimated at 20-25 %. Severe global left ventricular hypokinesis. Grade I diastolic dysfunction (abnormal relaxation filling pattern), normal to mildly elevated filling pressures. Right Ventricle Normal right ventricular size and systolic function. Right ventricular systolic pressure 13.3 mmHg. Right Atrium Normal right atrial size. Left Atrium Mildly increased left atrial size. Mitral Valve Mildly thickened mitral valve. No mitral valve stenosis. Trace mitral valve regurgitation. Aortic Valve Structurally normal trileaflet aortic valve. No aortic valve stenosis. No aortic valve regurgitation. Tricuspid Valve Structurally normal tricuspid valve. Trace tricuspid valve regurgitation. Pulmonic Valve Pulmonic valve not well visualized. No pulmonary valve stenosis. Trace pulmonary valve regurgitation. Pericardium No pericardial effusion. Aorta Normal size aortic root and proximal ascending aorta. CONCLUSIONS 1. Moderately dilated left ventricle cavity. Severely decreased left ventricular systolic function. Left ventricular ejection fraction is estimated at 20-25 %. Severe global left ventricular hypokinesis. Grade I diastolic dysfunction (abnormal relaxation filling pattern), normal to mildly elevated filling pressures. 2. Normal right ventricular size and systolic function. 3. Mildly increased left atrial size. 4. When compared to previous echocardiogram dated 11/20/2020, there has been no significant change. Phuong Ward MD (Electronically Signed) Final Date: 21 Oct 2021 17:53 Amended: 21 Oct 2021 18:10 C
== END 2021-10-19 13:41 | disposition home or self-care (01) ==
PROVIDERS: PCP Pediatrics; Visit Provider Internal Medicine Cardiovascular Disease
DX: I42.9 Cardiomyopathy, unspecified (principal); R06.02 Shortness of breath; I50.30 Unspecified diastolic (congestive) heart failure
CPT/HCPCS: C8929

== ENCOUNTER → 2021-11-11 13:33 | Outpatient (BNVA) | payer MEDICAID, SELFPAY | PROVIDERS: PCP Family Medicine; Visit Provider Thoracic Surgery (Cardiothoracic Vascular Surgery) | DX: I42.0 Dilated cardiomyopathy (principal); F17.200 Nicotine dependence, unspecified, uncomplicated | CPT/HCPCS: 99203; 99204 ==

== ENCOUNTER 2021-11-30 14:56 | Observation (INO) | payer MEDICAID, SELFPAY ==
[2021-11-26 12:18] VITALS: BMI 30.2
[2021-11-30] VITALS (9 sets, daily range): BP systolic 99–120; BP diastolic 70–85; PULSE 82–94; RESP 16–18; TEMP 36.2–37; O2SAT 95–99; BMI 31.1
[2021-11-30 06:51] LABS: Glucose Point of Care 221 mg/dL (70-110)
[2021-11-30 06:54] LABS: Basophils % 0.5 %; Eosinophils # 0.4 10^3/uL (0.0-0.8); Eosinophils % 4.7 %; Hematocrit 36.8 % (37.0-47.0); Lymphocytes # 2.5 10^3/uL (0.8-4.8); Lymphocytes % 33.5 %; Mean Corpuscular HGB Conc 35.3 g/dL (30.0-36.0); Mean Corpuscular Hemoglobin 30.3 pg (28.0-34.0); Mean Corpuscular Volume 85.8 fl (81-99); Mean Platelet Volume 9.5 fL (7.4-10.4); Monocytes # 0.4 10^3/uL (0.2-0.9); Monocytes % 5.5 %; Neutrophils # 4.12 10^3/uL (1.8-7.7); Neutrophils % 55.3 %; Nucleated Red Blood Cells % 0 %; Platelet Count 256 10^3/cmm (130-400); Red Blood Count 4.29 10^6/uL (4.1-5.3); Red Cell Distribution Width 12.9 % (12.1-15.1); White Blood Count 7.5 10^3/uL (4.0-10.0)
--- NOTE | 2021-11-30 06:57 | P.ANESASSM_ITS ---
Pre-Anesthetic Assessment Height/Weight: Height 1.63 m Weight 79.832 kg Temp Pulse Resp BP Pulse Ox 97.3 F L 82 18 113/74 97 11/30/21 06:42 11/30/21 06:42 11/30/21 06:42 11/30/21 06:42 11/30/21 06:42 Preop Diagnosis: Medically refractory cardiomyopathy Operation Date: 11/30/21 08:10 Proposed Procedures p Defibrillator Placement/cardio sheeba/(Not Applicable) - Angel Tucker MD Familial anesthetic complications: NOne Was Beta Joan taken within 24 hours: N/A Was Clonidine taken within 24 hours: N/A Last intake: Intake Last Liquid Date 11/29/21 Last Liquid Time 22:30 Last Solid Date 11/29/21 Last Solid Time 22:30 Social Tobacco and No alcohol Exam alert, oriented x 3, clear to auscultation bilaterally and regular rate & rhythm Airway Mallampati: Class II Dentition: full Pulmonary Chronic Obstructive Pulmonary Disease and Sleep Apnea CV/HEM Congestive Heart Failure and Hypertension EF of 20 - 25% on 11/07 echo w/ hx Mod MVR None reported Hepatic None reported GI None reported Metabolic Diabetes Mellitus [facility] [place] None reported Neuropsych None reported Anesthetic Plan ASA status: 4 Anesthesia: MAC Risk of > 500 ml blood loss (7ml/kg in children): No Medications/Allergies Home Medications Medication Instructions Recorded Confirmed Last Taken Type albuterol sulfate 90 mcg/actuation 1 inh INHALATION Q6H PRN #1 ea 11/20/20 11/26/21 Unknown Rx breath activated powder inhaler fluticasone 500 mcg-salmeterol 50 1 inh INHALATION BID 12/22/20 11/26/21 Unknown History mcg/dose blistr powdr for inhalation (Advair Diskus) tiotropium bromide 18 mcg capsule 1 cap INHALATION DAILY 12/22/20 11/26/21 Un known History with inhalation device (Spiriva with HandiHaler) Novolog U-100 Insulin aspart 100 See Rx Instructions .ROUTE 01/29/21 11/26/21 Unknown Rx unit/mL subcutaneous solution .COMPLEX 30 Days #10 ml NS (insulin aspart U-100) aspirin 81 mg tablet,delayed 81 mg PO DAILY #30 tab 01/29/21 11/26/21 11/25/21 Rx release blood-glucose meter (Accu-Chek #1 ea 01/29/21 11/26/21 Unknown Rx Comfort Plus Meter) lancets 30 gauge and blood glucose #50 ea 01/29/21 11/26/21 Unknown Rx strips combo pack oxycodone 5 mg tablet 5 mg PO Q6H PRN #10 tab 01/29/21 11/26/21 Unknown Rx digoxin 125 mcg (0.125 mg) tablet 125 mcg PO DAILY #90 tab 03/24/21 11/26/21 Unknown Rx ascorbic acid (vitamin C) 500 mg 500 mg PO DAILY 10/05/21 11/26/21 Unknown History tablet cetirizine 10 mg tablet (Zyrtec) 10 mg PO DAILY 10/05/21 11/26/21 Unknown History cholecalciferol (vitamin D3) 50 50 mcg PO DAILY 10/05/21 11/26/21 Unknown History mcg (2,000 unit) capsule gabapentin 100 mg capsule 100 mg PO TID 10/05/21 11/26/21 Unknown History metformin 500 mg tablet 500 mg PO BID 10/05/21 11/26/21 Unknown History midodrine 5 mg tablet 5 mg PO TID 10/05/21 11/26/21 Unknown History ondansetron HCl 4 mg tablet 4 mg PO Q6H PRN 10/05/21 11/26/21 Unknown History potassium chloride 20 mEq 20 meq PO BID 10/05/21 11/26/21 Unknown History tablet,extended release sertraline 100 mg tablet (Zoloft) 100 mg PO DAILY 10/05/21 11/26/21 Unknown History acetaminophen 500 mg tablet 500 mg PO PRN 11/26/21 11/26/21 Unknown History (Tylenol Extra Strength) atorvastatin 20 mg tablet 20 mg PO QPM 11/26/21 11/26/21 Unknown History cefdinir 300 mg capsule 300 mg PO BID 11/26/21 11/26/21 Unknown History cyclobenzaprine 10 mg tablet 10 mg PO TID 11/26/21 11/26/21 Unknown History docusate sodium 100 mg tablet 100 mg PO DAILY 11/26/21 11/26/21 Unknown History furosemide 20 mg tablet 20 mg PO BID 11/26/21 11/26/21 Unknown History trazodone 50 mg tablet 25 mg PO BEDTIME PRN 11/26/21 11/26/21 Unknown History Allergies Allergy/AdvReac Type Severity Reaction Status Date / Time walnut Allergy Unknown Unknown Unverified 11/11/21 14:36 bupropion [From Wellbutrin] Allergy Unknown Verified 11/11/21 14:36 mushroom Allergy ALGY-Hives Verified 11/11/21 14:36 Penicillins Allergy ALGY-Hives Verified 11/11/21 14:36 Sulfa (Sulfonamide Allergy ALGY-Hives Verified 11/11/21 14:36 Antibiotics) tomato Allergy ALGY-Hives Verified 11/11/21 14:36 zolpidem [From Ambien] Allergy Unknown Verified 11/11/21 14:36 honeydew Allergy ALGY-Hives Uncoded 11/11/21 14:36 [facility] Anesthesia Medical History CHF (congestive heart failure) Depression Diabetes Marijuana abuse OCD (obsessive compulsive disorder) PTSD (post-traumatic stress disorder) Seizure Suicide and self-inflicted injury Surgical History H/O: hysterectomy Family History Other CAD (coronary artery disease) Diabetes Social History Smoking and tobacco status: current every day smoker Second hand smoke exposure: No Alcohol intake: never Lives independently: Yes Housing: Assisted Data Anesthesia : 11/30/21 06:47 11/30/21 06:47 Short CBC 11/30/21 Range/Units 06:47 WBC 7.5 (4.0-10.0) 10^3/uL Hgb 13.0 (11.5-15.3) g/dL Hct 36.8 L (37.0-47.0) % MCV 85.8 (81-99) fl Plt Count 256 (130-400) 10^3/cmm Neut % (Auto) 55.3 % Neut # (Auto) 4.12 (1.8-7.7) 10^3/uL Cardiac Studies: Echocardiogram 10/19/21 Echocardiogram Ultrasound 11/20/20
[2021-11-30 07:07] LABS: Add Urine Microscopic? YES; Bilirubin Urine Neg (Negative); Blood Urine Neg (Negative); Glucose Urine UA Norm (Normal); Ketones Urine Negative (Negative); Leukocyte Esterase Urine 1+ (Negative); Nitrate Urine Negative (Negative); Protein Urine Neg (Negative); RBC Urine 0-4 /hpf (0-2); Urine Appearance Clear (CLEAR); Urine Color Yellow (Yellow); Urobilinogen Urine Norm (Negative); pH Urine 5 (5-7)
[2021-11-30 07:09] LABS: Bacteria Urine TRACE /hpf
[2021-11-30] MEDS: sodium chloride 0.9% 1,000 ML 30 ML IV (07:09)
[2021-11-30 07:10] LABS: Add Urine Culture? Yes
[2021-11-30 07:11] LABS: Blood Urea Nitrogen 14 mg/dL (6-20); Calcium 9.2 mg/dL (8.5-10.5); Carbon Dioxide 27 mmol/L (22-29); Chloride 99 mmol/L (98-107); Glomerular Filtration Rate 129.6 mL/min (90-130); Glucose 201 mg/dL (65-115); Osmolality Calculated 292 mOsm/kg (285-295); Sodium 138 mmol/L (136-145)
[2021-11-30 07:12] LABS: Anion Gap 16.3 (5-19); Potassium 4.3 mmol/L (3.5-5.1)
[2021-11-30] MEDS: insulin regular-human 100 units/1 mL 10 UNIT IVP (07:18)
--- NOTE | 2021-11-30 07:39 | W.PM.OPSUD ---
Surgery/Procedure H&P Update DATE OF PROCEDURE: November 30, 2021 DATE H&P PERFORMED: 11/11/21 H&P UPDATE INFORMATION: I have reviewed H&P completed within last 30 days, I have examined patient prior to procedure and No changes to prior documentation PREOP DIAGNOSIS: Medically refractory cardiomyopathy PRIMARY INDICATION FOR PROCEDURE: Nonischemic medically refractory cardiomyopathy PLANNED PROCEDURE: Operation Date: 11/30/21 08:10 Proposed Procedures p Defibrillator Placement/cardio sheeba/(Not Applicable) - Angel Tucker MD
[2021-11-30] MEDS: vancomycin 1,500 MG/300 ML PIGGYBACK 200 MG IV (07:45)
[2021-11-30] MEDS: lidocaine 2% INJ 20 mL INJECTION (08:18)
[2021-11-30] MEDS: vancomycin 1,000 MG SDV 1000 MG IRRIGATION (08:24)
--- NOTE | 2021-11-30 09:40 | PM.OP ---
Operative Report Date of procedure: November 30, 2021 Pre-op diagnosis: Preop Diagnosis Medically refractory cardiomyopathy Post-op diagnosis: same Procedure done: Implantable cardiac defibrillator placement with atrial and ventricular leads Implants: AICD generator Right ventricular and right atrial leads Pathology: none sent Surgeon: Angel Tucker Anesthesia: MAC and Local Complications: None: Post procedure chest x-ray pending Condition: stable Brief History: Ms. Tejada is a 51-year-old female with medically refractory nonischemic cardiomyopathy. Most recent echocardiogram confirms an ejection fraction of 20 to 25% which is not improved with maximal medical management by cardiology service. AICD implantation been recommended to reduce potential for increased risk for malignant arrhythmia related to her severe cardiomyopathy. Details of risk of the procedure were carefully and frankly discussed. Proper consents have been reviewed and signed. Procedure: Procedure: Patient was taken to the OR suite and placed in the supine position over a shoulder roll. She received conscious sedation with continuous anesthesia monitoring by. Her entire chest was sterilely prepped and draped. 1% lidocaine was infiltrated in the left subclavicular region. While in Trendelenburg position, utilizing modified seldinger technique, a guidewire was placed in the left subclavian vein. This was confirmed in position by fluoroscopy. Next, after infiltration with lidocaine, a subcutaneous pocket was created beginning from the exit point of the guidewire and extending laterally and inferiorly. Cautery was utilized to create the pocket just above the pectoralis musculature. Hemostasis was confirmed. An antibiotic-soaked sponge was placed in the wound. A dilator and tear-away sheath was placed over the guidewire and advanced under fluoroscopy. Guidewire and dilator were removed. Next using a combination of curved and straight stylettes, the right ventricular lead was placed in position by fluoroscopy. The distal screw was extended. Interrogation was then performed confirming appropriate parameters. The tear-away sheath was then removed and the ventricular lead was sewn to the floor of the subcutaneous pocket. Next, atrial lead was placed in a similar fashion with fluoroscopic guidance. Generator was brought into the field, and after confirmation of hemostasis in the subcutaneous pocket, the leads was connected to the generator with appropriate capture. The entire system was interrogated by fluoroscopy. Leads and generator were secured in the pocket. Sponge and needle count was correct. The wound was then closed in 2 layers of 3-0 Vicryl suture. Skin was reapproximated in a subcuticular manner with 4-0 Monocryl suture. A pressure dressing was applied. The left arm was placed in a sling. The patient had equal breath sounds bilaterally. She was then transferred to the PACU, where chest x-ray is currently pending. There was no immediate family available for counseling. Following are the specifics of this system: Right ventricular lead is 62 cm and model 6935M Serial number [id number] Right atrial lead is 52 cm and model number 5076 Serial Number: [id number] Right atrial lead and a sensing of 1.4 mV with an impedance of 516 ohms and capture threshold 0.85 V Ventricular lead had sensing of 11.3 mV with an impedance of 922 ohms. Threshold was 0.8 V [facility] AICD generator: Model # [id number] Serial # [id number]
--- NOTE | 2021-11-30 10:07 | XRR_ITS ---
PROCEDURE INFORMATION: Exam: XR Chest Exam date and time: 11/30/2021 10:20 AM Age: 51 years old Clinical indication: Device placement; Other: Aicd implantation; Prior surgery; Surgery date: Post-operative (0-2 days); Additional info: S/P aicd implantation) TECHNIQUE: Imaging protocol: XR of the chest. Views: 1 view. COMPARISON: CR (CHEST, ) 11/19/2020 6:18 PM FINDINGS: Tubes, catheters and devices: Cardiac rhythm maintenance device is in place. Lungs: Unremarkable. No consolidation. Pleural spaces: Unremarkable. No pleural effusion. No pneumothorax. Heart/Mediastinum: Unremarkable. No cardiomegaly. Bones/joints: Unremarkable. XR/XR chest 1V portable [id number] IMPRESSION: No acute cardiopulmonary abnormality.
[2021-11-30] MEDS: TRAMadol 50 mg Tablet PO (10:16)
[2021-11-30] MEDS: gabapentin 100 mg Capsule PO ×2 (15:30→20:33)
[2021-11-30] MEDS: midodrine 5 mg TABLET PO ×2 (15:31→20:33)
[2021-11-30] MEDS: cyclobenzaprine 10 mg Tablet PO ×2 (15:31→20:33)
[2021-11-30 16:59] LABS: Glucose Point of Care 242 mg/dL (70-110)
[2021-11-30] MEDS: oxyCODONE 5 mg IR Tab/Cap PO (17:17)
[2021-11-30] MEDS: atorvastatin 40 mg Tablet 20 MG PO (17:17)
[2021-11-30] MEDS: potassium chloride ER 20 mEq Tablet PO (17:18)
[2021-11-30] MEDS: metformin 500 mg Tablet PO (17:18)
[2021-11-30] MEDS: insulin lispro 100 unit/1 mL SUBCUT ×2 (17:19→22:55)
[2021-11-30] MEDS: FUROsemide 20 mg Tablet PO (17:22)
[2021-11-30] MEDS: cefdinir 300 MG CAPSULE PO (17:22)
[2021-11-30] MEDS: clindamycin 150 mg Capsule 300 MG PO (20:33)
[2021-11-30] MEDS: trazodone 50 mg Tablet 25 MG PO (20:41)
[2021-11-30 21:53] LABS: Glucose Point of Care 200 mg/dL (70-110)
[2021-11-30] MEDS: ketorolac 30 mg/mL INJ IVP (22:55)
[2021-12-01 00:33] VITALS: BP 106/71; PULSE 92; RESP 18; TEMP 37; O2SAT 95
[2021-12-01 05:13] VITALS: BP 109/74; PULSE 83; RESP 16; TEMP 36.9; O2SAT 97
[2021-12-01] MEDS: vancomycin 1,000 MG in sodium chloride 0.9% 250 ML 250 MG IV (05:32)
[2021-12-01] MEDS: ketorolac 30 mg/mL INJ IVP (05:41)
--- NOTE | 2021-12-01 06:08 | PM.DCS ---
Discharge Providers Date of Admission: 11/30/21 14:56 Date of Discharge: December 01, 2021 Attending Provider at Admission: Angel Tucker MD Attending Provider at Discharge: Angel Tucker MD Primary Care Provider: Rosa Elena Mauro MD Reason for Visit Reason for Visit: cardio sheeba/ Hospital Course Hospital Course Ms. Tejada is a pleasant 51-year-old female who is currently a resident at [facility]. She has a history of nonischemic cardiomyopathy with ejection fraction between 20 and 25% which has not improved with maximal medical management. Dr. Ward is recommended consideration for AICD implantation as prophylaxis. Rationale, details of risk the procedure were carefully and frankly discussed. Outpatient clinic visit of November 11. She wished to proceed. . She was electively admitted on November 30 and underwent dual-lead AICD implantation. She was observed overnight in the hospital received postoperative prophylactic antibiotics. Postop discomfort has been under good control. Vital signs are stable. Outer surgical dressing was removed on the first postop day. No evidence for fluid collection or localized swelling. There is been no drainage. Breath sounds remain clear bilaterally. She is tolerating a diet well. She will be discharged to return to [facility] today. I will continue outpatient oral antibiotics prophylactically for another 2 days. Discharge instructions have been reviewed with her as well as activity limitations. She will be scheduled for follow-up with [facility] in 1 week. At time of discharge, she is in stable condition. Physical Exam Chest: COMMONS NORMALS: normal inspection of the chest and normal palpation of entire chest wall OTHER: Inner surgical l dressing remains clean and dry. Resp: COMMON NORMALS: normal respiratory effort, No use of accessory muscles and clear to auscultation bilaterally AUSCULTATION: clear to auscultation bilaterally Cardio: COMMON NORMALS: regular rate, regular rhythm, S1 normal heart sound present and No murmurs present (Cardio) RATE: regular rate RHYTHM: regular rhythm HEART SOUNDS: S1 normal heart sound present Extremity: COMMON NORMALS: no clubbing, cyanosis or edema Discharge Data Studies Completed and Pending Completed Studies During Hospitalization Category Date Time Status CXRP [XR chest 1V portable [id number]] Routine Exams 11/30/21 10:07 Completed Pending at discharge Category Date Time Status Urine Culture Routine Lab 11/30/21 06:33 Received Radiology Impressions Chest X-Ray 11/30/21 10:07 IMPRESSION: No acute cardiopulmonary abnormality. Laboratory Results WBC 7.5 10^3/uL (4.0-10.0) 11/30/21 06:47 RBC 4.29 10^6/uL (4.1-5.3) 11/30/21 06:47 Hgb 13.0 g/dL (11.5-15.3) 11/30/21 06:47 Hct 36.8 % (37.0-47.0) L 11/30/21 06:47 MCV 85.8 fl (81-99) 11/30/21 06:47 MCH 30.3 pg (28.0-34.0) 11/30/21 06:47 MCHC 35.3 g/dL (30.0-36.0) 11/30/21 06:47 RDW 12.9 % (12.1-15.1) 11/30/21 06:47 Plt Count 256 10^3/cmm (130-400) 11/30/21 06:47 MPV 9.5 fL (7.4-10.4) 11/30/21 06:47 Neut % (Auto) 55.3 % 11/30/21 06:47 Lymph % (Auto) 33.5 % 11/30/21 06:47 [place] % (Auto) 5.5 % 11/30/21 06:47 Eos % (Auto) 4.7 % 11/30/21 06:47 Baso % (Auto) 0.5 % 11/30/21 06:47 Neut # (Auto) 4.12 10^3/uL (1.8-7.7) 11/30/21 06:47 Lymph # (Auto) 2.5 10^3/uL (0.8-4.8) 11/30/21 06:47 [place] # (Auto) 0.4 10^3/uL (0.2-0.9) 11/30/21 06:47 Eos # (Auto) 0.4 10^3/uL (0.0-0.8) 11/30/21 06:47 Baso # (Auto) 0.0 10^3/uL (0.0-0.1) 11/30/21 06:47 Nucleated RBC % (auto) 0 % 11/30/21 06:47 Nucleated RBCs # 0.0 /100WBC 11/30/21 06:47 Sodium 138 mmol/L (136-145) 11/30/21 06:47 Potassium 4.3 mmol/L (3.5-5.1) 11/30/21 06:47 Chloride 99 mmol/L (98-107) 11/30/21 06:47 Carbon Dioxide 27 mmol/L (22-29) 11/30/21 06:47 Anion Gap 16.3 (5-19) 11/30/21 06:47 BUN 14 mg/dL (6-20) 11/30/21 06:47 Creatinine 0.5 mg/dL (0.5-0.9) 11/30/21 06:47 GFR Calculation 129.6 mL/min (90-130) 11/30/21 06:47 Glucose 201 mg/dL (65-115) H 11/30/21 06:47 POC Glucose 200 mg/dL (70-110) H 11/30/21 21:28 Calculated Osmolality 292 mOsm/kg (285-295) 11/30/21 06:47 Calcium 9.2 mg/dL (8.5-10.5) 11/30/21 06:47 Urine Color Yellow (Yellow) 11/30/21 06:33 Urine Appearance Clear (CLEAR) 11/30/21 06:33 Urine pH 5 (5-7) 11/30/21 06:33 Ur Specific [place] 1.020 (1.005-1.030) 11/30/21 06:33 Urine Protein Neg (Negative) 11/30/21 06:33 Urine Glucose (UA) Norm (Normal) 11/30/21 06:33 Urine Ketones Negative (Negative) 11/30/21 06:33 Urine Blood Neg (Negative) 11/30/21 06:33 Urine Nitrate Negative (Negative) 11/30/21 06:33 Urine Bilirubin Neg (Negative) 11/30/21 06:33 Urine Urobilinogen Norm mg/dL (Negative) 11/30/21 06:33 Ur Leukocyte Esterase 1+ (Negative) H 11/30/21 06:33 Urine RBC 0-4 /hpf (0-2) H 11/30/21 06:33 Urine WBC 5-10 /hpf (0-5) H 11/30/21 06:33 Ur Squamous Epith Cells 10-15 /hpf (0-5) H 11/30/21 06:33 Amorphous Sediment Not Reportable 11/30/21 06:33 Urine Bacteria Trace /hpf (NONE) 11/30/21 06:33 Urine Yeast Trace /hpf 11/30/21 06:33 Imaging CXR: Radiologist's impression: Postprocedure AICD implantation reveals clear lung sim and appropriate lead positioning. No pneumothorax is noted. This is my interpretation Vitals Last Vital Signs Temp 98.5 F 12/01/21 05:13 Pulse 83 12/01/21 05:13 Resp 16 12/01/21 05:13 BP 109/74 12/01/21 05:13 Pulse Ox 97 12/01/21 05:13 Discharge Plan Discharge Patient Disposition: Home Condition: Stable Prescriptions: New hydrocodone-acetaminophen 5-325 mg tablet 1 tab PO Q8H PRN (Reason: pain) Qty: 10 0RF clindamycin HCl 150 mg Capsule 300 mg PO TID Qty: 6 0RF Continued sertraline [Zoloft] 100 mg tablet 100 mg PO DAILY 0RF cetirizine [Zyrtec] 10 mg tablet 10 mg PO DAILY 0RF cholecalciferol (vitamin D3) 50 mcg (2,000 unit) capsule 50 mcg PO DAILY 0RF ascorbic acid (vitamin C) 500 mg tablet 500 mg PO DAILY 0RF potassium chloride 20 mEq tablet extended release 20 meq PO BID 0RF midodrine 5 mg tablet 5 mg PO TID 0RF Rx Instructions: do not give last dose of day after 6PM or within 4 hrs of bedtime ondansetron HCl 4 mg tablet 4 mg PO Q6H PRN (Reason: Nausea) 0RF gabapentin 100 mg capsule 100 mg PO TID 0RF metformin 500 mg tablet 500 mg PO BID 0RF fluticasone propion-salmeterol [Advair Diskus] 500-50 mcg/dose blister with device 1 inh inhalation BID 0RF Spiriva with HandiHaler 18 mcg capsule, w/inhalation device 1 cap inhalation DAILY 0RF Rx Instructions: puncture 1 cap using device; one dose = 2 inhalations digoxin 125 mcg (0.125 mg) tablet 125 mcg PO DAILY Qty: 90 2RF albuterol sulfate 90 mcg/actuation aerosol powdr breath activated 1 inh inhalation Q6H PRN (Reason: shortness of breath) Qty: 1 0RF oxycodone 5 mg Tablet 5 mg PO Q6H PRN (Reason: Moderate Pain) Qty: 10 0RF insulin aspart U-100 [Novolog U-100 Insulin aspart] 100 unit/mL Solution See Rx Instructions .ROUTE .COMPLEX 30 Days Qty: 10 1RF Rx Instructions: Sliding scale 70-149(none), 150-199(3 units),200-249(6 units),250-299(9 units),300-349(12 units) if greater than 350=15 units (DME) lancets-blood glucose strips 30 gauge combo pack See Rx Instructions .Route Qty: 50 0RF Rx Instructions: As directed (DME) blood-glucose meter [Accu-Chek Comfort Plus Meter] [facility] [place] .Route Qty: 1 0RF Rx Instructions: As directed aspirin 81 mg tablet,delayed release (DR/EC) 81 mg PO DAILY Qty: 30 0RF atorvastatin 20 mg tablet 20 mg PO QPM 0RF trazodone 50 mg tablet 25 mg PO BEDTIME PRN (Reason: insomnia) 0RF Tylenol Extra Strength 500 mg tablet 500 mg PO PRN 0RF furosemide 20 mg tablet 20 mg PO BID 0RF cyclobenzaprine 10 mg Tablet 10 mg PO TID 0RF cefdinir 300 mg Capsule 300 mg PO BID 0RF Rx Instructions: for 10 days start day 11/23/21 docusate sodium 100 mg Tablet 100 mg PO DAILY 0RF Discharge Orders: Discharge Order (Routine); Ordered 12/01/21 Ordered By: Angel Tucker Referrals: [facility] [Provider Group] - 1 week (Pacemaker clinic) [facility] [Outside] Discharge Diet: Usual diet Discharge Activity: Limit activity as instructed Patient Instructions: Opioid Safety Activity Restrictions/Additional Instructions: May remove bandage in 2 days May begin daily showers in 3 days Dry incision area completely after showering. May recover incision as desired to prevent irritation from clothing. No swimming or tub baths x 2 weeks No ointments on incision Report drainage, redness, heat, increased pain, or swelling to clinic Do not raise left hand above eye level for 1 week Discharge Attestations Time Spent in Discharge Care*: less than 30 min Specific Discharge Activities: educating patient, discussing with case aide/social workers/dc planners, documenting/other paperwork and evaluating patient/reviewing data Status at Discharge: Cognitive status at discharge: cognitively intact, Behavioral status at discharge: cooperative, Functional status at discharge: independent ambulation, Overall status at discharge: patient is back to baseline Quality Metrics Clinical Quality Measures [ No reported AMI, CVA or VTE this stay] Coding Level of Care Code Acute Chg FW DC note
[2021-12-01 06:30] LABS: Glucose Point of Care 205 mg/dL (70-110)
[2021-12-01 07:49] VITALS: BP 107/72; PULSE 81; RESP 12; TEMP 36.4; O2SAT 95
[2021-12-01] MEDS: insulin lispro 100 unit/1 mL SUBCUT (08:38)
[2021-12-01] MEDS: docusate sodium 100 mg Capsule PO (08:39)
[2021-12-01] MEDS: metformin 500 mg Tablet PO (08:39)
[2021-12-01] MEDS: midodrine 5 mg TABLET PO (08:39)
[2021-12-01] MEDS: cetirizine 10 mg Tablet PO (08:39)
[2021-12-01] MEDS: sertraline 100 mg Tablet PO (08:39)
[2021-12-01 08:40] VITALS: PULSE 81
[2021-12-01] MEDS: potassium chloride ER 20 mEq Tablet PO (08:40)
[2021-12-01] MEDS: cyclobenzaprine 10 mg Tablet PO (08:40)
[2021-12-01] MEDS: cefdinir 300 MG CAPSULE PO (08:40)
[2021-12-01] MEDS: digoxin 125 mcg Tablet PO (08:40)
[2021-12-01] MEDS: FUROsemide 20 mg Tablet PO (08:41)
[2021-12-01] MEDS: gabapentin 100 mg Capsule PO (08:44)
[2021-12-01 09:18] VITALS: PULSE 88; RESP 16; O2SAT 92
[2021-12-01] MEDS: clindamycin 150 mg Capsule 300 MG PO (09:18)
[2021-12-01] MEDS: ondansetron 4 MG Tablet PO (10:39)
--- NOTE | 2021-12-01 10:59 | PC.CHAP ---
Pastoral Care Encounter/Spiritual Assessment Type of Contact [] Declined expander visit [] Patient/Family/Request visit [] Outpatient visit [] Follow-up visit [] Physician referral [] Code/Alert []x Routine visit [] Staff referral [] Actively dying [] Patient sleeping [] Family support [] [] Out of room [] Palliative care [] [x] Receiving care in room [] Pre-surgical visit [] Trauma [] Long length of stay [] ICU visit [] Other: Relational/Emotional Strength [] Patient feels connected with others/family/visitors/staff [] Distress [] Loneliness/isolation [] Abandonment Spirituality of Patient [] Person of Nkechi [] Attends Hindu of their Nkechi [] Believes in Prayer [] Reads Bible or Denominational materials [] There are Spiritual issues to be addressed Criminal Profiler Interventions [] Prayer [] Active listening [] Non-anxious presence [] Spiritual/emotional support [] Crisis/trauma care [] Spiritual counseling [] Bereavement support [] Provided bereavement packet [] Provided Bible/devotional materials [] Provided toy/stuffed animal, coloring book to patient or family member [] Provided Communion [] Anointing/S[place]cer [] Salvation [] Completed spiritual assessment [] Other: Impact on Illness or Injury [] Angry [] Fearful [] Anxious [] Often cries [] Exhaustion [] Unable to work [] Unable to attend restorationist [] Unable to walk/stand [] Unable to read [] Unable to drive [] Unable to eat/drink [] Unable to sleep [] Unable to be with family [] Patient intubated [] Other: Summary Time spent with patient
--- NOTE | 2021-12-01 11:23 | PC.NURSE ---
pacemaker interrogated by this nurse. report called to this nurse by [employer], reported system functioning as programed.
[2021-12-01 11:40] VITALS: BP 107/72; PULSE 88; RESP 16; TEMP 36.4; O2SAT 92
[2021-12-01 11:47] LABS: SARS Covid-2 Antigen Negative (Negative)
--- NOTE | 2021-12-01 17:11 | ANE.PACU2 ---
Inpatient post-anesthesia follow up: Airway intact: Yes Vital signs: Temperature 97.6 F Pulse Rate 88 Respiratory Rate 16 Blood Pressure 107/72 Pulse Oximetry 92 Oxygen Delivery Me thod Room Air Oxygen Flow Rate Fraction of Inspir ed Oxygen Hydration adequate: Yes Nausea and vomiting: No Pain level: 1 Mental status: Baseline
== END 2021-12-01 11:41 | disposition skilled nursing facility (03) ==
LOC: MEDSURG 15:16
PROVIDERS: Admitting Provider Thoracic Surgery (Cardiothoracic Vascular Surgery); PCP Family Medicine; Visit Provider Thoracic Surgery (Cardiothoracic Vascular Surgery)
PROC: 0JH608Z Insertion of Defibrillator Generator into Chest Subcutaneous Tissue and Fascia, Open Approach (ICD-10-PCS; CPT 33249; principal; 2021-11-30 08:10)
DX: I42.0 Dilated cardiomyopathy (principal); J44.9 Chronic obstructive pulmonary disease, unspecified; G47.30 Sleep apnea, unspecified; I11.0 Hypertensive heart disease with heart failure; I50.9 Heart failure, unspecified; E11.9 Type 2 diabetes mellitus without complications; Z79.4 Long term (current) use of insulin; F17.200 Nicotine dependence, unspecified, uncomplicated; F32.9 Major depressive disorder, single episode, unspecified
CPT/HCPCS: 33249; 36415; 36416; 71045; 76000; 80048; 81001; 82962; 85025; 87086; 87426; 94640; 96372; C1721; C1777; C1779; G0378; J1815; J1885; J2250; J2704; J3370; J3490; J7030; J7050; Q0162

== ENCOUNTER 2022-01-02 19:20 | Emergency (ER) | payer MEDICAID, SELFPAY ==
--- NOTE | 2022-01-02 19:29 | ECG_ITS ---
[facility] Test Date: 2022-01-02 Pat Name: Bertha Tejada Department: Room: Gender: Female [employer]: : 1970 Requested By: Braulio Helton Order Number: [id number] Soila MD: Luis Gilmore M.D. Measurements Intervals [place] Rate: 107 P: 39 MT: 143 QRS: 22 QRSD: 85 T: 75 QT: 342 QTc: 457 Interpretive Statements SINUS TACHYCARDIA POSSIBLE LEFT ATRIAL ENLARGEMENT [-0.1mV P-WAVE IN V1/V2] ANTEROSEPTAL MYOCARDIAL INFARCTION , OF INDETERMINATE AGE [40+ ms Q WAVE IN V1-V4] Compared to ECG 01/28/2021 18:54:29 Sinus rhythm no longer present Myocardial infarct finding still present Electronically Signed On 01-03-2022 8:08:30 CDT by Luis Gilmore M.D. [email or web address]
--- NOTE | 2022-01-02 19:29 | XRR_ITS ---
PROCEDURE INFORMATION: Exam: XR Chest Exam date and time: 01/02/2022 7:38 PM Age: 51 years old Clinical indication: Pain; Angina pectoris; Additional info: Syncopal episode TECHNIQUE: Imaging protocol: Radiologic exam of the chest. Views: 1 view. COMPARISON: CR XR chest 1V portable [id number] 11/30/2021 10:20 AM FINDINGS: Tubes, catheters and devices: There is a dual-lead cardiac pacer via left subclavian approach. Findings are stable. Lungs: Lungs are clear bilaterally. Pleural spaces: No pleural effusion. No pneumothorax. Heart/Mediastinum: Stable mild enlargement of the cardiac silhouette. Mediastinal contours are unremarkable. Bones/joints: Unremarkable for age. Organs: Surgical clips in the right upper quadrant, consistent with a previous cholecystectomy. Findings are stable. XR/XR chest 1V portable [id number] IMPRESSION: 1. No acute cardiopulmonary process. 2. Incidental/nonacute findings are listed in the report.
--- NOTE | 2022-01-02 19:36 | CTR_ITS ---
PROCEDURE INFORMATION: Exam: CT Head Without Contrast Exam date and time: 01/02/2022 7:48 PM Age: 51 years old Clinical indication: Syncope and collapse; Patient HX: Hit forehead when she collapsed; Additional info: Syncopal episode TECHNIQUE: Imaging protocol: Computed tomography of the head without contrast. Sagittal and coronal reformatted images were created and reviewed. Radiation optimization: All CT scans at this facility use at least one of these dose optimization techniques: automated exposure control; mA and/or kV adjustment per patient size (includes targeted exams where dose is matched to clinical indication); or iterative reconstruction. COMPARISON: No relevant prior studies available. RADIATION DOSE METRICS: Total DLP (mGy-cm): 997.38 FINDINGS: Brain: No acute intracranial hemorrhage. No acute infarct. No intra-axial or extra-axial masses. Rodriguez-white matter differentiation is preserved. No cerebral edema. No extra-axial fluid collections. No midline shift. No acute intracranial hemorrhage. No acute infarct. No intra-axial or extra-axial masses. Rodriguez-white matter differentiation is preserved. No cerebral edema. No extra-axial fluid collections. No midline shift. No evidence for Chiari 1 malformation. Cerebral ventricles: No hydrocephalus. No hydrocephalus. Paranasal sinuses: Visualized paranasal sinuses are clear. Mastoid air cells: Mastoid air cells are clear bilaterally. Orbital cavities: No acute abnormality in the visualized orbits. Dental: The patient is edentulous. Bones/joints: No acute fracture. Soft tissues: The extracranial soft tissues are unremarkable. Vasculature: Mild atherosclerotic changes in the visualized arteries. CT/CT head wo con* [id number] IMPRESSION: 1. No acute abnormality of the brain. 2. Incidental/nonacute findings are listed in the report.
--- NOTE | 2022-01-02 19:38 | XRR_ITS ---
PROCEDURE INFORMATION: Exam: XR Right Shoulder Exam date and time: 01/02/2022 7:41 PM Age: 51 years old Clinical indication: Pain; Shoulder; Right; Additional info: Syncopal episode with right shoulder pain TECHNIQUE: Imaging protocol: Radiologic exam of the Right shoulder. Views: 2 or more views. COMPARISON: No relevant prior studies available. FINDINGS: Bones/joints: No acute fracture. No dislocation. Normal bone mineralization. No joint effusion. Joint spaces are maintained. Lungs: The visualized right lung is clear. Soft tissues: No soft tissue swelling. No radiopaque foreign body. XR/XR shoulder RT min 2V* [id number] IMPRESSION: Negative radiographs of the right shoulder Followup imaging recommended in 7-14 days if clinical concern for fracture persists.
--- NOTE | 2022-01-02 19:38 | ED_ITS ---
Documented by User: JENNY Lopez 01/03/22 14:25 HPI - Syncope General: Chief Complaint: Syncope Stated Complaint: Fall/Syncopal Episode Time Seen by Provider: 01/02/22 19:29 History of Present Illness: Patient is a 51-year-old female comes to the ED via EMS after syncopal episode. Patient says she got up to go to the bathroom and felt dizzy while walking to the bathroom and then woke up on the floor. She says she was a little out of it when she first woke up but is now returned back to baseline. She thinks she was out for less than a minute. She has some superficial abrasions to her knees and some right shoulder pain after fall. Denies any headache or neck pain. Patient states that she had COVID couple weeks ago that she got over and then developed an ear infection which she is currently being treated with eardrops. Endorses having nausea and multiple episodes of vomiting over the last 2 days due to ear pain. To her ear pain she has been in bed for the past 3 to 4 days. Denies any chest pain, shortness of breath, abdominal pain, bladder or bowel symptoms. Patient was given 4 mg of Zofran by EMS and her nausea has improved. Associated symptoms: Reports nausea; Deny abdominal pain, chest pain, fever(s) or headache(s) Review of Systems Const: Denies: fever(s), chills or fatigue Eyes: Denies: change in vision or eye discomfort ENMT: Denies: throat pain, odynophagia, nasal discharge or nasal congestion Card: Reports: syncope; Denies: chest pain, palpitations, edema, swelling of feet/ankles, dyspnea on exertion or orthopnea Resp: Denies: dyspnea, productive cough or non-productive cough GI: Reports: nausea and vomiting; Denies: abdominal pain, diarrhea, constipation or hematochezia : Denies: flank pain, dysuria or hematuria Musc: Reports: extremity pain (Right shoulder pain); Denies: neck pain, back pain or extremity swelling Skin/Breast: Denies: rash or new lesions Neuro: Reports: dizziness (Dizziness when going from laying to standing.); Denies: headache(s), numbness in extremities or weakness in extremities PFS ED PFSH: Medical History CHF (congestive heart failure) Depression Diabetes Marijuana abuse OCD (obsessive compulsive disorder) PTSD (post-traumatic stress disorder) Seizure Suicide and self-inflicted injury Surgical History H/O: hysterectomy Family History Other CAD (coronary artery disease) Diabetes Social History Smoking and tobacco status: current every day smoker Second hand smoke exposure: No Alcohol intake: never Lives independently: Yes Housing: Skilled Nursing Physical Exam Const: COMMON NORMALS: patient oriented x3 and alert GENERAL APPEARANCE: cooperative HENMT: COMMON NORMALS: normocephalic and atraumatic HEAD & SCALP: normal to inspection, normocephalic and atraumatic; no Kathleen's sign, no contusion and no raccoon eyes MOUTH: Normal oral and palatal mucosa present THROAT: posterior oropharynx normal and uvula midline Eye: COMMON NORMALS: Equal, round and reactive pupils present, EOMs intact bilaterally and conjunctivae normal CONJUNCTIVA: Yes conjunctivae normal PUPIL: Yes Equal, round and reactive pupils present Neck/C-Spine: COMMON NORMALS: supple GENERAL: Yes normal visual inspection Resp: COMMON NORMALS: normal respiratory effort, No retractions, No use of accessory muscles and clear to auscultation bilaterally AUSCULTATION: clear to auscultation bilaterally Cardio: COMMON NORMALS: regular rate, regular rhythm, S1 normal heart sound present, S2 normal heart sound present, No gallops present (Cardio), No clicks present (Cardio), No murmurs present (Cardio) and Peripheral pulses 2+ throughout RATE: regular rate RHYTHM: regular rhythm HEART SOUNDS: S1 normal heart sound present and S2 normal heart sound present PERIPHERAL PULSES: Peripheral pulses 2+ throughout GI: COMMON NORMALS: Normal to inspection, nondistended, normoactive bowel sounds present, Soft to palpation, non-tender and no masses PALPATION: Yes Soft to palpation : COMMON NORMALS: Yes no CVA tenderness BLADDER/KIDNEY EXAM: Yes no CVA tenderness Back/Pelvis: COMMON NORMALS: no CVA tenderness Extremity: COMMON NORMALS: normal to inspection Neuro: COMMON NORMALS: patient oriented x3, CN's II-XII intact bilaterally, moves all extremities, no focal motor deficits and no sensory deficits noted SENSORIUM/ORIENTATION: Yes alert SENSORY EXAM: Yes extremities (intact) MOTOR EXAM: 5/5 motor strength present throughout Skin: GENERAL SKIN EXAM: dry skin Course ED course: After patient received IV fluids and p.o. potassium nurse got patient up and had her walk around the unit. She passed road test and was stable for discharge home. Vital Signs: Vital signs: Vital Signs Temperature 98.8 F 01/02/22 20:08 Pulse Rate 103 H 01/03/22 01:47 Respiratory Rate 18 01/03/22 01:47 Blood Pressure 112/92 01/03/22 01:47 Pulse Oximetry 96 01/03/22 01:47 MDM - Syncope Medical Decision Making Patient is a 51-year-old female comes to the ED after syncopal episode. Patient got up from laying down in bed and walk to the bathroom and woke up on the floor. Denies any chest pain, shortness of breath, headache, neck pain. Endorses some mild right shoulder pain. Patient is currently being treated for an ear infection and for the past 2 days she has had some nausea and vomiting. Vitals are stable and patient appears nontoxic and in no acute distress. Neuro exam showed no deficits. Nurse performed orthostatic vitals and they met criteria for orthostatic hypotension when she was standing which is likely the cause of her syncopal episode. She had a potassium of 2.5 and the rest of her CBC and CMP were unremarkable. Baseline troponin 38, 2-hour troponin is 30.86 and 6-hour troponin is 37.29 with a delta of -0.71. EKGs showed no acute findings. CT of head showed no acute findings. Chest x-ray and shoulder x-ray showed no acute findings as well. Patient did not have any episodes of nausea or vomiting here in the ED and was able to take p.o. meds. She was given p.o. potassium chloride and half a liter of IV fluids and then her BMP was rechecked and her potassium went up to 2.9. Nurse then got patient up and walked around unit and she was stable and able to ambulate without any dizziness or balance issues. Talk with Dr. Hampton about patient case and he agreed that she was stable for discharge home with her potassium going up and her passing road test. She was given another p.o. dose of potassium before discharge and told to follow-up with her PCP in the next 2 to 3 days to have BMP rechecked. She was diagnosed with hypokalemia, syncopal episode and orthostatic hypotension. She was given strict return to ED precautions. Patient understood and agreed with plan. Lab Data I reviewed the patient's lab results. Nurse performed orthostatic vitals--- laying 120/74 HR 104 sitting 105/73 HR 111, standing 88/56, HR 124 : 01/02/22 20:20 01/03/22 00:18 Radiology Impressions Chest X-Ray 01/02/22 19:29 IMPRESSION: 1. No acute cardiopulmonary process. 2. Incidental/nonacute findings are listed in the report. Head CT 01/02/22 19:36 IMPRESSION: 1. No acute abnormality of the brain. 2. Incidental/nonacute findings are listed in the report. Shoulder X-Ray 01/02/22 19:38 IMPRESSION: Negative radiographs of the right shoulder Followup imaging recommended in 7-14 days if clinical concern for fracture persists. Laboratory Results WBC 10.4 10^3/uL (4.0-10.0) H 01/02/22 20:20 RBC 5.05 10^6/uL (4.1-5.3) 01/02/22 20:20 Hgb 15.1 g/dL (11.5-15.3) 01/02/22 20:20 Hct 42.8 % (37.0-47.0) 01/02/22 20:20 MCV 84.8 fl (81-99) 01/02/22 20:20 MCH 29.9 pg (28.0-34.0) 01/02/22 20:20 MCHC 35.3 g/dL (30.0-36.0) 01/02/22 20:20 RDW 12.4 % (12.1-15.1) 01/02/22 20:20 Plt Count 333 10^3/cmm (130-400) 01/02/22 20:20 MPV 10.4 fL (7.4-10.4) 01/02/22 20:20 Neut % (Auto) 61.8 % 01/02/22 20:20 Lymph % (Auto) 27.3 % 01/02/22 20:20 [place] % (Auto) 7.9 % 01/02/22 20:20 Eos % (Auto) 1.8 % 01/02/22 20:20 Baso % (Auto) 0.6 % 01/02/22 20:20 Neut # (Auto) 6.40 10^3/uL (1.8-7.7) 01/02/22 20:20 Lymph # (Auto) 2.8 10^3/uL (0.8-4.8) 01/02/22 20:20 [place] # (Auto) 0.8 10^3/uL (0.2-0.9) 01/02/22 20:20 Eos # (Auto) 0.2 10^3/uL (0.0-0.8) 01/02/22 20:20 Baso # (Auto) 0.1 10^3/uL (0.0-0.1) 01/02/22 20:20 Nucleated RBC % (auto) 0 % 01/02/22 20:20 Nucleated RBCs # 0.0 /100WBC 01/02/22 20:20 Sodium 135 mmol/L (136-145) L 01/03/22 00:18 Potassium 2.9 mmol/L (3.5-5.1) L 01/03/22 00:18 Chloride 90 mmol/L (98-107) L 01/03/22 00:18 Carbon Dioxide 33 mmol/L (22-29) H 01/03/22 00:18 Anion Gap 14.9 (5-19) 01/03/22 00:18 BUN 28 mg/dL (6-20) H 01/03/22 00:18 Creatinine 1.0 mg/dL (0.5-0.9) H 01/03/22 00:18 GFR Calculation 58.2 mL/min (90-130) L 01/03/22 00:18 Glucose 190 mg/dL (65-115) H 01/03/22 00:18 Calculated Osmolality 291 mOsm/kg (285-295) 01/03/22 00:18 Calcium 9.7 mg/dL (8.5-10.5) 01/03/22 00:18 Total Bilirubin 0.4 mg/dL (0.15-1.2) 01/02/22 20:55 AST 22 U/L (0-32) 01/02/22 20:55 ALT 40 U/L (0-33) H 01/02/22 20:55 Alkaline Phosphatase 134 IU/L (35-105) H 01/02/22 20:55 Troponin T Baseline 38 ng/L (0-10) H 01/02/22 20:55 Troponin T 120 Minute 38.86 ng/L (0-10) H 01/02/22 22:00 Delta Troponin T 0.86 ABS# (0-10) 01/02/22 22:00 Troponin T Hi Sens 6Hr 37.29 ng/L (0-10) H 01/03/22 00:18 Troponin T Hi Sens 6Hr Delta -0.71 ng/L (0-12) L 01/03/22 00:18 NT-Pro-B Natriuret Pep 1543 pg/mL (0-125) H 01/02/22 20:55 Total Protein 8.1 g/dL (6.6-8.7) 01/02/22 20:55 Albumin 4.4 g/dL (3.5-5.2) 01/02/22 20:55 Globulin 3.7 g/dL (1.3-4.6) 01/02/22 20:55 EKG Data EKG 1: EKG interpretation date: 01/02/22 Computer Generated Interpretation: [address] [address] Electrocardiograph Report Signed Patient: Bertha Tejada Unit #: [id number] : 1970 Age/Sex: 51 / F ADM Date: 01/02/22 Loc: ER Room/Bed: Attending Dr: Ordering Provider/Ordering MD: Braulio Helton Date of Service: 01/02/22 Procedure(s): ECG 12 lead EKG Accession Number(s): [id number] Report Number: [id number] ? [facility] ? Test Date:? ? 2022-01-02 Pat Name: ? ? Bertha Tejada ? Department: ? Patient ID: ? [id number] ? Room: ? Gender: ? ? ? Female ? Manager Steel: ? :? 1970 ? Requested By: Braulio Helton Order Number: [id number]? Reading MD: ? Luis Gilmore M.D. ? Measurements Intervals? [place]? Rate: ? 107? P:? 39 [place]: ? 143? QRS:? 22 QRSD: ? 85 ? T:? 75 QT: ? 342? QTc:? 457? Interpretive Statements SINUS TACHYCARDIA POSSIBLE LEFT ATRIAL ENLARGEMENT? [-0.1mV P-WAVE IN V1/V2] ANTEROSEPTAL MYOCARDIAL INFARCTION , OF INDETERMINATE AGE [40+ ms Q WAVE IN V1-V4] Compared to ECG 01/28/2021 18:54:29 Sinus rhythm no longer present Myocardial infarct finding still present Electronically Signed On 01-03-2022 8:08:30 CDT by Luis Gilmore M.D. [email or web address] Dictated By: Luis Gilmore MD Signed By: Luis Gilmore MD Signed Date/Time 01/03/22 08 DD/ 16 Discharge Plan Discharge Patient Disposition: Home Clinical Impression: Hypokalemia, Episode of syncope, Orthostatic hypotension Condition: Stable Prescriptions: No Action sertraline [Zoloft] 100 mg tablet 100 mg PO DAILY cetirizine [Zyrtec] 10 mg tablet 10 mg PO DAILY cholecalciferol (vitamin D3) 50 mcg (2,000 unit) capsule 50 mcg PO DAILY ascorbic acid (vitamin C) 500 mg tablet 500 mg PO DAILY potassium chloride 20 mEq tablet extended release 20 meq PO BID midodrine 5 mg tablet 5 mg PO TID Rx Instructions: do not give last dose of day after 6PM or within 4 hrs of bedtime ondansetron HCl 4 mg tablet 4 mg PO Q6H PRN (Reason: Nausea) gabapentin 100 mg capsule 100 mg PO TID metformin 500 mg tablet 500 mg PO BID fluticasone propion-salmeterol [Advair Diskus] 500-50 mcg/dose blister with device 1 inh inhalation BID Spiriva with HandiHaler 18 mcg capsule, w/inhalation device 1 cap inhalation DAILY Rx Instructions: puncture 1 cap using device; one dose = 2 inhalations digoxin 125 mcg (0.125 mg) tablet 125 mcg PO DAILY Qty: 90 2RF albuterol sulfate 90 mcg/actuation aerosol powdr breath activated 1 inh inhalation Q6H PRN (Reason: shortness of breath) Qty: 1 0RF oxycodone 5 mg Tablet 5 mg PO Q6H PRN (Reason: Moderate Pain) Qty: 10 0RF insulin aspart U-100 [Novolog U-100 Insulin aspart] 100 unit/mL Solution See Rx Instructions .ROUTE .COMPLEX 30 Days Qty: 10 1RF Rx Instructions: Sliding scale 70-149(none), 150-199(3 units),200-249(6 units),250-299(9 units),300-349(12 units) if greater than 350=15 units (DME) lancets-blood glucose strips 30 gauge combo pack See Rx Instructions .Route Qty: 50 0RF Rx Instructions: As directed (DME) blood-glucose meter [Accu-Chek Comfort Plus Meter] [facility] See Rx Instructions .Route Qty: 1 0RF Rx Instructions: As directed aspirin 81 mg tablet,delayed release (DR/EC) 81 mg PO DAILY Qty: 30 0RF atorvastatin 20 mg tablet 20 mg PO QPM trazodone 50 mg tablet 25 mg PO BEDTIME PRN (Reason: insomnia) Tylenol Extra Strength 500 mg tablet 500 mg PO PRN furosemide 20 mg tablet 20 mg PO BID cyclobenzaprine 10 mg Tablet 10 mg PO TID cefdinir 300 mg Capsule 300 mg PO BID Rx Instructions: for 10 days start day 11/23/21 docusate sodium 100 mg Tablet 100 mg PO DAILY clindamycin HCl 150 mg Capsule 300 mg PO TID Qty: 6 0RF hydrocodone-acetaminophen 5-325 mg tablet 1 tab PO Q8H PRN (Reason: pain) Qty: 10 0RF hydrocodone-acetaminophen 5-325 mg tablet 1 tab PO Q8H PRN (Reason: pain) Qty: 10 0RF clindamycin HCl 150 mg capsule 150 mg PO Q8H Qty: 7 0RF Discharge Orders: Discharge ED (Routine); Ordered 01/03/22 Ordered By: Braulio Helton Referrals: Rosa Elena Mauro MD [Primary Care Provider] - Discharge Diet: Regular Discharge Activity: Increase activity as tolerated Patient Instructions: Hypokalemia (ED), Syncope (ED) Activity Restrictions/Additional Instructions: Follow-up with PCP in the next 2 to 3 days for reevaluation. Have PCP redraw basic metabolic panel to check potassium. Continue taking all home medications as previously prescribed. Drink plenty of fluids and stay hydrated.Return to the ER or your medical provider if condition worsens. Please read and understand discharge instructions. Thank you for choosing [facility] for your healthcare needs today. Please realize this is an emergency room and that we are providing you with a medical screening exam and this may not be complete and all inclusive of all the testing and or work up that you may need to determine your ailment or severity of your illness. It is very important that you follow up as instructed or that you return to the Emergency Department should you have concerns or if your condition changes or worsens in any way. Coding Level of Care Code ED Canvas Worker Apprentice for Chg Fwd Exam Comprehensive Documented by User: Zhang Hampton, 01/16/22 02:43 HPI - Syncope General: Chief Complaint: Syncope Stated Complaint: Fall/Syncopal Episode Time Seen by Provider: 01/02/22 19:29 [facility] ED PFSH: Medical History CHF (congestive heart failure) Depression Diabetes Marijuana abuse OCD (obsessive compulsive disorder) PTSD (post-traumatic stress disorder) Seizure Suicide and self-inflicted injury Surgical History H/O: hysterectomy Family History Other CAD (coronary artery disease) Diabetes Social History Smoking and tobacco status: current every day smoker Second hand smoke exposure: No Alcohol intake: never Lives independently: Yes Housing: Skilled Nursing Course Vital Signs: Vital signs: Vital Signs Temperature 98.8 F 01/02/22 20:08 Pulse Rate 103 H 01/03/22 01:47 Respiratory Rate 18 01/03/22 01:47 Blood Pressure 112/92 01/03/22 01:47 Pulse Oximetry 96 01/03/22 01:47 MDM - Syncope Medical Decision Making Patient is a 51-year-old female comes to the ED after syncopal episode. Patient got up from laying down in bed and walk to the bathroom and woke up on the floor. Denies any chest pain, shortness of breath, headache, neck pain. Endorses some mild right shoulder pain. Patient is currently being treated for an ear infection and for the past 2 days she has had some nausea and vomiting. Vitals are stable and patient appears nontoxic and in no acute distress. Neuro exam showed no deficits. Nurse performed orthostatic vitals and they met criteria for orthostatic hypotension when she was standing which is likely the cause of her syncopal episode. She had a potassium of 2.5 and the rest of her CBC and CMP were unremarkable. Baseline troponin 38, 2-hour troponin is 30.86 and 6-hour troponin is 37.29 with a delta of -0.71. EKGs showed no acute findings. CT of head showed no acute findings. Chest x-ray and shoulder x-ray showed no acute findings as well. Patient did not have any episodes of nausea or vomiting here in the ED and was able to take p.o. meds. She was given p.o. potassium chloride and half a liter of IV fluids and then her BMP was rechecked and her potassium went up to 2.9. Nurse then got patient up and walked around unit and she was stable and able to ambulate without any dizziness or balance issues. Talk with Dr. Hampton about patient case and he agreed that she was stable for discharge home with her potassium going up and her passing road test. She was given another p.o. dose of potassium before discharge and told to follow-up with her PCP in the next 2 to 3 days to have BMP rechecked. She was diagnosed with hypokalemia, syncopal episode and orthostatic hypotension. She was given strict return to ED precautions. Patient understood and agreed with plan. This patient was originally seen by Mr. Danie PA-C.? I agree with his history, evaluation, and treatment. Lab Data : 01/02/22 20:20 01/03/22 00:18 Radiology Impressions Chest X-Ray 01/02/22 19:29 IMPRESSION: 1. No acute cardiopulmonary process. 2. Incidental/nonacute findings are listed in the report. Head CT 01/02/22 19:36 IMPRESSION: 1. No acute abnormality of the brain. 2. Incidental/nonacute findings are listed in the report. Shoulder X-Ray 01/02/22 19:38 IMPRESSION: Negative radiographs of the right shoulder Followup imaging recommended in 7-14 days if clinical concern for fracture persists. Laboratory Results WBC 10.4 10^3/uL (4.0-10.0) H 01/02/22 20:20 RBC 5.05 10^6/uL (4.1-5.3) 01/02/22 20:20 Hgb 15.1 g/dL (11.5-15.3) 01/02/22 20:20 Hct 42.8 % (37.0-47.0) 01/02/22 20:20 MCV 84.8 fl (81-99) 01/02/22 20:20 MCH 29.9 pg (28.0-34.0) 01/02/22 20:20 MCHC 35.3 g/dL (30.0-36.0) 01/02/22 20:20 RDW 12.4 % (12.1-15.1) 01/02/22 20:20 Plt Count 333 10^3/cmm (130-400) 01/02/22 20:20 MPV 10.4 fL (7.4-10.4) 01/02/22 20:20 Neut % (Auto) 61.8 % 01/02/22 20:20 Lymph % (Auto) 27.3 % 01/02/22 20:20 [place] % (Auto) 7.9 % 01/02/22 20:20 Eos % (Auto) 1.8 % 01/02/22 20:20 Baso % (Auto) 0.6 % 01/02/22 20:20 Neut # (Auto) 6.40 10^3/uL (1.8-7.7) 01/02/22 20:20 Lymph # (Auto) 2.8 10^3/uL (0.8-4.8) 01/02/22 20:20 [place] # (Auto) 0.8 10^3/uL (0.2-0.9) 01/02/22 20:20 Eos # (Auto) 0.2 10^3/uL (0.0-0.8) 01/02/22 20:20 Baso # (Auto) 0.1 10^3/uL (0.0-0.1) 01/02/22 20:20 Nucleated RBC % (auto) 0 % 01/02/22 20:20 Nucleated RBCs # 0.0 /100WBC 01/02/22 20:20 Sodium 135 mmol/L (136-145) L 01/03/22 00:18 Potassium 2.9 mmol/L (3.5-5.1) L 01/03/22 00:18 Chloride 90 mmol/L (98-107) L 01/03/22 00:18 Carbon Dioxide 33 mmol/L (22-29) H 01/03/22 00:18 Anion Gap 14.9 (5-19) 01/03/22 00:18 BUN 28 mg/dL (6-20) H 01/03/22 00:18 Creatinine 1.0 mg/dL (0.5-0.9) H 01/03/22 00:18 GFR Calculation 58.2 mL/min (90-130) L 01/03/22 00:18 Glucose 190 mg/dL (65-115) H 01/03/22 00:18 Calculated Osmolality 291 mOsm/kg (285-295) 01/03/22 00:18 Calcium 9.7 mg/dL (8.5-10.5) 01/03/22 00:18 Total Bilirubin 0.4 mg/dL (0.15-1.2) 01/02/22 20:55 AST 22 U/L (0-32) 01/02/22 20:55 ALT 40 U/L (0-33) H 01/02/22 20:55 Alkaline Phosphatase 134 IU/L (35-105) H 01/02/22 20:55 Troponin T Baseline 38 ng/L (0-10) H 01/02/22 20:55 Troponin T 120 Minute 38.86 ng/L (0-10) H 01/02/22 22:00 Delta Troponin T 0.86 ABS# (0-10) 01/02/22 22:00 Troponin T Hi Sens 6Hr 37.29 ng/L (0-10) H 01/03/22 00:18 Troponin T Hi Sens 6Hr Delta -0.71 ng/L (0-12) L 01/03/22 00:18 NT-Pro-B Natriuret Pep 1543 pg/mL (0-125) H 01/02/22 20:55 Total Protein 8.1 g/dL (6.6-8.7) 01/02/22 20:55 Albumin 4.4 g/dL (3.5-5.2) 01/02/22 20:55 Globulin 3.7 g/dL (1.3-4.6) 01/02/22 20:55 Discharge Plan Discharge Patient Disposition: Home Clinical Impression: Hypokalemia, Episode of syncope, Orthostatic hypotension Condition: Stable Prescriptions: No Action sertraline [Zoloft] 100 mg tablet 100 mg PO DAILY cetirizine [Zyrtec] 10 mg tablet 10 mg PO DAILY cholecalciferol (vitamin D3) 50 mcg (2,000 unit) capsule 50 mcg PO DAILY ascorbic acid (vitamin C) 500 mg tablet 500 mg PO DAILY potassium chloride 20 mEq tablet extended release 20 meq PO BID midodrine 5 mg tablet 5 mg PO TID Rx Instructions: do not give last dose of day after 6PM or within 4 hrs of bedtime ondansetron HCl 4 mg tablet 4 mg PO Q6H PRN (Reason: Nausea) gabapentin 100 mg capsule 100 mg PO TID metformin 500 mg tablet 500 mg PO BID fluticasone propion-salmeterol [Advair Diskus] 500-50 mcg/dose blister with device 1 inh inhalation BID Spiriva with HandiHaler 18 mcg capsule, w/inhalation device 1 cap inhalation DAILY Rx Instructions: puncture 1 cap using device; one dose = 2 inhalations digoxin 125 mcg (0.125 mg) tablet 125 mcg PO DAILY Qty: 90 2RF albuterol sulfate 90 mcg/actuation aerosol powdr breath activated 1 inh inhalation Q6H PRN (Reason: shortness of breath) Qty: 1 0RF oxycodone 5 mg Tablet 5 mg PO Q6H PRN (Reason: Moderate Pain) Qty: 10 0RF insulin aspart U-100 [Novolog U-100 Insulin aspart] 100 unit/mL Solution See Rx Instructions .ROUTE .COMPLEX 30 Days Qty: 10 1RF Rx Instructions: Sliding scale 70-149(none), 150-199(3 units),200-249(6 units),250-299(9 units),300-349(12 units) if greater than 350=15 units (DME) lancets-blood glucose strips 30 gauge combo pack See Rx Instructions .Route Qty: 50 0RF Rx Instructions: As directed (DME) blood-glucose meter [Accu-Chek Comfort Plus Meter] [facility] See Rx Instructions .Route Qty: 1 0RF Rx Instructions: As directed aspirin 81 mg tablet,delayed release (DR/EC) 81 mg PO DAILY Qty: 30 0RF atorvastatin 20 mg tablet 20 mg PO QPM trazodone 50 mg tablet 25 mg PO BEDTIME PRN (Reason: insomnia) Tylenol Extra Strength 500 mg tablet 500 mg PO PRN furosemide 20 mg tablet 20 mg PO BID cyclobenzaprine 10 mg Tablet 10 mg PO TID cefdinir 300 mg Capsule 300 mg PO BID Rx Instructions: for 10 days start day 11/23/21 docusate sodium 100 mg Tablet 100 mg PO DAILY clindamycin HCl 150 mg Capsule 300 mg PO TID Qty: 6 0RF hydrocodone-acetaminophen 5-325 mg tablet 1 tab PO Q8H PRN (Reason: pain) Qty: 10 0RF hydrocodone-acetaminophen 5-325 mg tablet 1 tab PO Q8H PRN (Reason: pain) Qty: 10 0RF clindamycin HCl 150 mg capsule 150 mg PO Q8H Qty: 7 0RF Discharge Orders: Discharge ED (Routine); Ordered 01/03/22 Ordered By: Braulio Helton Referrals: Rosa Elena Mauro MD [Primary Care Provider] - Discharge Diet: Regular Discharge Activity: Increase activity as tolerated Patient Instructions: Hypokalemia (ED), Syncope (ED) Activity Restrictions/Additional Instructions: Follow-up with PCP in the next 2 to 3 days for reevaluation. Have PCP redraw basic metabolic panel to check potassium. Continue taking all home medications as previously prescribed. Drink plenty of fluids and stay hydrated.Return to the ER or your medical provider if condition worsens. Please read and understand discharge instructions. Thank you for choosing [facility] for your healthcare needs today. Dennis heaton realize this is an emergency room and that we are providing you with a medical screening exam and this may not be complete and all inclusive of all the testing and or work up that you may need to determine your ailment or severity of your illness. It is very important that you follow up as instructed or that you return to the Emergency Department should you have concerns or if your condition changes or worsens in any way. Coding Level of Care Code ED Canvas Worker Apprentice for Ruth Denise Exam Comprehensive
[2022-01-02 20:08] VITALS: BP 120/74; PULSE 104; RESP 18; TEMP 37.1; O2SAT 98
[2022-01-02 20:09] VITALS: BP 105/73; BP 120/74; BP 88/56; PULSE 104; PULSE 111; PULSE 124
[2022-01-02 20:34] LABS: Basophils # 0.1 10^3/uL (0.0-0.1); Basophils % 0.6 %; Eosinophils # 0.2 10^3/uL (0.0-0.8); Eosinophils % 1.8 %; Hematocrit 42.8 % (37.0-47.0); Hemoglobin 15.1 g/dL (11.5-15.3); Lymphocytes # 2.8 10^3/uL (0.8-4.8); Lymphocytes % 27.3 %; Mean Corpuscular HGB Conc 35.3 g/dL (30.0-36.0); Mean Corpuscular Hemoglobin 29.9 pg (28.0-34.0); Mean Corpuscular Volume 84.8 fl (81-99); Mean Platelet Volume 10.4 fL (7.4-10.4); Monocytes # 0.8 10^3/uL (0.2-0.9); Monocytes % 7.9 %; Neutrophils % 61.8 %; Nucleated Red Blood Cells % 0 %; Platelet Count 333 10^3/cmm (130-400); Red Blood Count 5.05 10^6/uL (4.1-5.3); Red Cell Distribution Width 12.4 % (12.1-15.1); White Blood Count 10.4 10^3/uL (4.0-10.0)
[2022-01-02] MEDS: sodium chloride 0.9% 500 ML 999 ML IV (20:41)
[2022-01-02 21:00] VITALS: BP 102/68; PULSE 95; RESP 16; O2SAT 95
--- NOTE | 2022-01-02 21:29 | ECG_ITS ---
[facility] Test Date: 2022-01-02 Pat Name: Bertha Tejada Department: Room: Gender: Female Credit Clerk: : [id number] Requested By: Braulio Helton Order Number: [id number] Cm MD: Luis Gilmore M.D. Measurements Intervals [place] Rate: 98 P: 43 CA: 145 QRS: 9 QRSD: 89 T: 46 QT: 361 QTc: 461 Interpretive Statements SINUS RHYTHM POSSIBLE LEFT ATRIAL ENLARGEMENT [-0.1mV P-WAVE IN V1/V2] ANTEROSEPTAL MYOCARDIAL INFARCTION , OF INDETERMINATE AGE [40+ ms Q WAVE IN V1-V4] Compared to ECG 01/02/2022 20:17:33 Sinus tachycardia no longer present Myocardial infarct finding still present Electronically Signed On 01-03-2022 18:12:27 CDT by Luis Gilmore M.D. [email or web address]
[2022-01-02 21:31] LABS: Troponin(5th) Baseline 38 ng/L (0-10)
[2022-01-02 21:38] LABS: Alanine Aminotransferase 40 U/L (0-33); Albumin Level 4.4 g/dL (3.5-5.2); Alkaline Phosphatase 134 IU/L (35-105); Anion Gap 16.5 (5-19); Aspartate Amino Transferase 22 U/L (0-32); Blood Urea Nitrogen 30 mg/dL (6-20); Calcium 9.8 mg/dL (8.5-10.5); Carbon Dioxide 32 mmol/L (22-29); Chloride 90 mmol/L (98-107); Globulin 3.7 g/dL (1.3-4.6); Glomerular Filtration Rate 52.2 mL/min (90-130); Glucose 215 mg/dL (65-115); NT Pro B Type Natriuretic Pept 1543 pg/mL (0-125); Osmolality Calculated 295 mOsm/kg (285-295); Sodium 136 mmol/L (136-145); Total Bilirubin 0.4 mg/dL (0.15-1.2); Total Protein 8.1 g/dL (6.6-8.7)
[2022-01-02 21:40] LABS: Potassium 2.5 mmol/L (3.5-5.1)
[2022-01-02] MEDS: potassium chloride ER 20 mEq Tablet 40 MEQ PO (22:00)
[2022-01-02 22:36] LABS: Troponin 5 2HR 38.86 ng/L (0-10)
[2022-01-02 22:38] LABS: Troponin 5 2HR Delta 0.86 ABS# (0-10)
[2022-01-02 22:43] VITALS: BP 116/77; PULSE 92; RESP 22; O2SAT 96
[2022-01-03 00:22] VITALS: BP 114/74; PULSE 105; RESP 19; O2SAT 97
--- NOTE | 2022-01-03 00:41 | PC.NURSE ---
patient ambulated to bathroom and back with steady gait and no dizziness.
[2022-01-03 00:54] LABS: Anion Gap 14.9 (5-19); Blood Urea Nitrogen 28 mg/dL (6-20); Calcium 9.7 mg/dL (8.5-10.5); Carbon Dioxide 33 mmol/L (22-29); Chloride 90 mmol/L (98-107); Glomerular Filtration Rate 58.2 mL/min (90-130); Glucose 190 mg/dL (65-115); Osmolality Calculated 291 mOsm/kg (285-295); Sodium 135 mmol/L (136-145)
[2022-01-03 00:55] LABS: Potassium 2.9 mmol/L (3.5-5.1); Troponin 5 6HR 37.29 ng/L (0-10); Troponin 5 6HR Delta -0.71 ng/L (0-12)
[2022-01-03] MEDS: potassium chloride ER 20 mEq Tablet 40 MEQ PO (01:29)
[2022-01-03 01:47] VITALS: BP 112/92; PULSE 103; RESP 18; O2SAT 96
== END 2022-01-03 01:53 | disposition home or self-care (01) ==
PROVIDERS: Emergency Provider Physician Assistant; PCP Family Medicine
DX: R55 Syncope and collapse (principal); E87.6 Hypokalemia; I95.1 Orthostatic hypotension; Z79.84 Long term (current) use of oral hypoglycemic drugs; Z79.4 Long term (current) use of insulin; Z79.82 Long term (current) use of aspirin; I50.9 Heart failure, unspecified; E11.9 Type 2 diabetes mellitus without complications; F17.210 Nicotine dependence, cigarettes, uncomplicated
CPT/HCPCS: 70450; 71045; 73030; 80048; 80053; 83880; 84484; 85025; 93005; 99285; J7040

== ENCOUNTER → 2022-01-26 14:39 | Outpatient (BNVA) | payer MEDICAID, SELFPAY | PROVIDERS: PCP Student in an Organized Health Care Education/Training Program; Visit Provider Internal Medicine Cardiovascular Disease | DX: I42.0 Dilated cardiomyopathy (principal); J44.9 Chronic obstructive pulmonary disease, unspecified; F17.200 Nicotine dependence, unspecified, uncomplicated | CPT/HCPCS: 36415; 80053; 83735; 83880; 84443; 99214 ==

== ENCOUNTER → 2022-02-04 08:54 | Outpatient (BNVA) | payer MEDICAID, SELFPAY | PROVIDERS: PCP Student in an Organized Health Care Education/Training Program; Visit Provider Internal Medicine Cardiovascular Disease | DX: Z45.02 Encounter for adjustment and management of automatic implantable cardiac defibrillator (principal) | CPT/HCPCS: 93283 ==

== ENCOUNTER → 2022-05-06 09:26 | Outpatient (BNVA) | payer MEDICAID, SELFPAY | PROVIDERS: PCP Student in an Organized Health Care Education/Training Program; Visit Provider Internal Medicine Cardiovascular Disease | DX: Z45.02 Encounter for adjustment and management of automatic implantable cardiac defibrillator (principal) | CPT/HCPCS: 93283 ==

== ENCOUNTER → 2022-05-18 15:33 | Outpatient (BNVA) | payer MEDICAID, SELFPAY | PROVIDERS: PCP Student in an Organized Health Care Education/Training Program; Visit Provider Internal Medicine Cardiovascular Disease | DX: Z95.810 Presence of automatic (implantable) cardiac defibrillator (principal); I42.0 Dilated cardiomyopathy; J44.9 Chronic obstructive pulmonary disease, unspecified; Z45.02 Encounter for adjustment and management of automatic implantable cardiac defibrillator; E11.9 Type 2 diabetes mellitus without complications; G47.30 Sleep apnea, unspecified; F17.210 Nicotine dependence, cigarettes, uncomplicated | CPT/HCPCS: 36415; 80053; 80162; 83735; 83880; 84443; 99214 ==

== ENCOUNTER → 2022-11-09 13:37 | Outpatient (BNVA) | payer MEDICAID, SELFPAY | PROVIDERS: PCP Student in an Organized Health Care Education/Training Program; Visit Provider Internal Medicine Cardiovascular Disease | DX: I42.0 Dilated cardiomyopathy (principal); Z95.810 Presence of automatic (implantable) cardiac defibrillator; F17.200 Nicotine dependence, unspecified, uncomplicated | CPT/HCPCS: 80053; 83735; 83880; 84443; 99214 ==

== ENCOUNTER → 2023-08-23 14:05 | Outpatient (BNVA) | payer MEDICAID, SELFPAY | PROVIDERS: PCP Student in an Organized Health Care Education/Training Program; Visit Provider Internal Medicine | DX: Z45.02 Encounter for adjustment and management of automatic implantable cardiac defibrillator (principal) | CPT/HCPCS: 93296 ==

== ENCOUNTER → 2024-03-25 15:49 | Outpatient (BNVA) | payer MEDICAID, SELFPAY | PROVIDERS: PCP Student in an Organized Health Care Education/Training Program; Visit Provider Internal Medicine Cardiovascular Disease | DX: I42.0 Dilated cardiomyopathy (principal); Z95.810 Presence of automatic (implantable) cardiac defibrillator; I95.9 Hypotension, unspecified; Z72.0 Tobacco use | CPT/HCPCS: 99214 ==

== ENCOUNTER → 2024-05-02 09:55 | Outpatient (BNVA) | payer MEDICAID, SELFPAY | PROVIDERS: PCP Student in an Organized Health Care Education/Training Program; Visit Provider Internal Medicine Cardiovascular Disease | DX: Z45.02 Encounter for adjustment and management of automatic implantable cardiac defibrillator (principal) | CPT/HCPCS: 93296 ==

== ENCOUNTER → 2024-08-21 09:26 | Outpatient (BNVA) | payer MEDICAID, SELFPAY | PROVIDERS: PCP Student in an Organized Health Care Education/Training Program; Visit Provider Internal Medicine Cardiovascular Disease | DX: Z45.02 Encounter for adjustment and management of automatic implantable cardiac defibrillator (principal) | CPT/HCPCS: 93296 ==

== ENCOUNTER → 2024-09-23 09:52 | Outpatient (BNVA) | payer MEDICAID, SELFPAY | PROVIDERS: PCP Student in an Organized Health Care Education/Training Program; Visit Provider Nurse Practitioner Family | DX: I42.8 Other cardiomyopathies (principal); R56.9 Unspecified convulsions; I10 Essential (primary) hypertension; G47.30 Sleep apnea, unspecified; Z95.810 Presence of automatic (implantable) cardiac defibrillator; Z87.891 Personal history of nicotine dependence; F29 Unspecified psychosis not due to a substance or known physiological condition; F33.9 Major depressive disorder, recurrent, unspecified; Z87.898 Personal history of other specified conditions | CPT/HCPCS: 99214 ==

== ENCOUNTER → 2025-01-15 09:49 | Outpatient (BNVA) | payer MEDICAID, SELFPAY | PROVIDERS: PCP Student in an Organized Health Care Education/Training Program; Visit Provider Internal Medicine Cardiovascular Disease | DX: Z45.02 Encounter for adjustment and management of automatic implantable cardiac defibrillator (principal) | CPT/HCPCS: 93296 ==

== ENCOUNTER → 2025-03-20 13:48 | Outpatient (BNVA) | payer MEDICAID, SELFPAY | PROVIDERS: PCP Student in an Organized Health Care Education/Training Program; Visit Provider Podiatrist Foot & Ankle Surgery | DX: E11.42 Type 2 diabetes mellitus with diabetic polyneuropathy (principal); L60.3 Nail dystrophy; L84 Corns and callosities; E11.8 Type 2 diabetes mellitus with unspecified complications; L85.3 Xerosis cutis; Z79.4 Long term (current) use of insulin | CPT/HCPCS: 11055; 11721; 99203 ==

== ENCOUNTER → 2025-05-14 10:02 | Outpatient (BNVA) | payer MEDICAID, SELFPAY | PROVIDERS: PCP Student in an Organized Health Care Education/Training Program; Visit Provider Internal Medicine | DX: Z45.02 Encounter for adjustment and management of automatic implantable cardiac defibrillator (principal) | CPT/HCPCS: 93296 ==